=== PATIENT | female | born 1945 | race Caucasian/White ===

== ENCOUNTER 2016-08-17 07:49 | Observation (INO) | payer MEDICARE, BC ==
[2016-08-17] MEDS ORDERED: Aspirin Low Dose CHEW TAB* 81 MG PO ONE (08:16)
[2016-08-17] MEDS ORDERED: Atenolol TAB* 25 MG PO ONE (08:35)
[2016-08-17 08:48] LABS: Hematocrit 42 % (35-47); Hemoglobin 14.4 g/dl (12.0-16.0); Mean Corpuscular HGB Conc 34 g/dl (31-36); Mean Corpuscular Hemoglobin 31 pg (27-31); Mean Corpuscular Volume 89 fL (80-97); Mean Platelet Volume 9 um3 (7.4-10.4); Red Blood Count 4.72 10^6/ul (4.0-5.4); Red Cell Distribution Width 13 % (10.5-15); White Blood Count 6.2 10^3/ul (3.5-10.8)
[2016-08-17 09:02] LABS: ALT 34 U/L (7-52); AST 34 U/L (13-39); Albumin 4.3 g/dL (3.2-5.2); Alkaline Phosphatase 53 U/L (34-104); Anion Gap 8 mmol/L (2-11); BUN/Creatinine Ratio 17.1 (8-20); Blood Urea Nitrogen 14 mg/dL (6-24); CO2 Carbon Dioxide 26 mmol/L (22-32); Calcium 9.4 mg/dL (8.6-10.3); Chloride 96 mmol/L (101-111); EGFR African American 88.1 (>60); EGFR Non-African American 68.5 (>60); Globulin 2.9 g/dL (2-4); Glucose 176 mg/dL (70-100); Sodium 130 mmol/L (133-145); Total Protein 7.2 g/dL (6.4-8.9)
--- NOTE | 2016-08-17 09:05 | RAD ---
INDICATION: Dizziness COMPARISON: October 04, 2014 TECHNIQUE: An AP portable view obtained at 0835 hours is submitted. FINDINGS: Bones/Soft Tissues: There are no acute bony findings. Cardiomediastinal: The cardiomediastinal silhouette is normal. Lungs: There are no infiltrates. Pleura: There are no pleural effusions. Other: None IMPRESSION: NO ACTIVE DISEASE.
[2016-08-17 09:06] LABS: Troponin I 2.42 ng/mL (<0.04)
--- NOTE | 2016-08-17 09:08 | RAD ---
INDICATION: Dizziness COMPARISON: None TECHNIQUE: Noncontrast axial source images were acquired from the skull base to the vertex. FINDINGS: Ventricles/sulci: There is cortical atrophy particularly of the frontal lobes with compensatory dilatation of the CSF spaces. Brain parenchyma: There is no acute focal parenchymal finding, evidence of intracranial mass, or intracranial mass effect. Intracranial hemorrhage:None. Extra-axial spaces: There are no abnormal extra axial fluid collections or evidence of extra-axial mass. Calvarium: There is no calvarial fracture or other calvarial abnormality. Scalp: There is no evidence of scalp or extracalvarial soft tissue abnormality. Paranasal sinuses/mastoid: The paranasal sinuses and mastoid air cells are clear. Other: None. IMPRESSION: Cortical atrophic findings. No acute change
[2016-08-17 09:40] LABS: Alcohol < 10 mg/dL (<10)
[2016-08-17 09:50] LABS: TSH (Thyroid Stimulating Horm) 3.51 mcIU/mL (0.34-5.60)
[2016-08-17 09:57] LABS: Free T4 0.86 ng/dL (0.61-1.12)
[2016-08-17] MEDS ORDERED: Enoxaparin(*) 40 MG/0.4 ML SYR SUBCUT SCH (10:00)
[2016-08-17] MEDS ORDERED: NS 0.9% 1000 ML* 1,000 ML IV SCH (10:00)
[2016-08-17] MEDS ORDERED: Labetalol IV* 5 MG/ML 20 ML VIAL IV PUSH PRN (10:02)
[2016-08-17] MEDS: Enoxaparin(*) 80 MG/0.8 ML SYR SUBCUT SCH (11:27)
--- NOTE | 2016-08-17 11:57 | HP ---
CC: Dr. Melendrez HISTORY AND PHYSICAL: DATE OF ADMISSION: 08/17/16 PRIMARY CARE PHYSICIAN: Anny Melendrez MD CHIEF COMPLAINT: Lightheadedness and palpitations. HISTORY OF PRESENT ILLNESS: Ms. Roy is a pleasant 71-year-old female with the past medical history of hypertension, which is labile and has a white coat component; GERD; spinal cord tumor; melanoma; anxiety; hyperlipidemia; and previous admission for these symptoms with troponin elevation who presents to the hospital with lightheadedness and palpitations. The patient states that she was in her usual state of health, her symptoms began yesterday. When she woke up in the morning, she sat up in bed and she became lightheaded, also noticed that her heart was pounding. She felt some anxiety come on with these symptoms as well. She laid back down and rested for a while, the symptoms resolved. She stated that it felt very similar to her previous episode 2 years ago, which prompted hospitalization. She had no issues for the rest of the day and was able to sleep well last night. This morning, she woke up around 0545 hours. She sat up and got out of the bed and felt well. She went downstairs to the kitchen to get some coffee and after she walked into the kitchen, her symptoms recurred. She felt lightheadedness. Denied sensation of the room spinning around her. She stated that she has had vertigo in her past and did not feel like this. She did not syncopize. She went back to bed and talked to her . He took her blood pressure and it was elevated at 210/110. She felt her anxiety progressing and decided to come to the hospital for further evaluation. She denies chest pain, shortness of breath, diaphoresis, numbness, tingling, or weakness. She states that she took a Valium yesterday and again today. This morning, however, it did not seem to help her symptoms much. She has had some decreased p.o. intake recently. Denies any nausea, vomiting, diarrhea, chills, dysuria, or bleeding. She had a 7-pound weight loss in the past month, which was intentional. She states that she has been [employer]. She states that she does have significant white coat hypertension, was seen in the office by her PCP, Dr. Melendrez, just last week on . She states that her blood pressure at that time was 160/88, which she states is good for her as it can often be over 200. In the emergency department, the patient was noted to have an elevated troponin of 2.42 as well as significant hypertension. The hospitalist service was consulted to consider the patient for admission. PAST MEDICAL HISTORY: 1. Hypertension labile and white coat component. 2. GERD. 3. Spinal cord tumor. 4. Melanoma. 5. Anxiety. 6. Hyperlipidemia. PAST SURGICAL HISTORY: 1. Melanoma excision. 2. 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 HOME MEDICATIONS: 1. Atenolol 25 mg by mouth daily and 12.5 mg by mouth at bedtime. 2. Aspirin 81 mg by mouth daily. 3. Atorvastatin 20 mg daily. 4. Valium 2 to 4 mg by mouth daily as needed for anxiety. 5. Calcium supplementation 1 tablet 2 times daily. ALLERGIES: To EPINEPHRINE, PRILOCAINE, and NOVOCAIN, all of which cause palpitations. FAMILY HISTORY: Significant for the mother who did at 93, had an enlarged heart. Sister with hypertension and polio. Father with lung cancer. Brother with hypertension and brain cancer. Brother with CVA. SOCIAL HISTORY: The patient denies any history of tobacco abuse. She was drinking 2 glasses of wine a night. Denies any illicit drug use. No caffeine use. REVIEW OF SYSTEMS: A 12-point review of systems is negative except as noted in the HPI. PHYSICAL EXAMINATION GENERAL: The patient is a pleasant elderly female, lying in bed, in no apparent distress. Vital Signs: On admission temperature of 98.1, heart rate of 80, respiratory rate 19, O2 saturation 99% on room air, and blood pressure 216/98. HEENT: Pupils equal, round and reactive to light and accommodation. Anicteric sclera. Moist mucous membranes. NECK: No cervical adenopathy. LUNGS: Clear to auscultation bilaterally. No wheezes, rales, or rhonchi. CARDIOVASCULAR: Regular rate and rhythm. S1, S2 present. No murmurs, gallops , or rubs. ABDOMEN: Soft, nontender, and nondistended. Bowel sounds positive. EXTREMITIES: No cyanosis, clubbing, or edema. NEURO: The patient is alert and oriented x3. No focal neurological deficits. SKIN: Warm, dry, and well perfused. DIAGNOSTIC STUDIES/LAB DATA: White blood cell count of 16.2, hematocrit of 42, and platelets of 191. Sodium of 130, potassium of 4.0, chloride of 96, BUN 14, creatinine 0.82, and glucose of 176. LFTs within normal limits. Lactic acid of 1.6. Troponin of 2.42. TSH of 3.51. Serum alcohol is negative. EKG, personally reviewed, shows normal sinus rhythm and no ischemic changes. CT of the head showed no acute disease. Chest x-ray, personally reviewed, also showed no acute disease. ASSESSMENT AND PLAN: Lightheadedness, palpitations with elevated troponin and significant hypertension in this 71-year-old female with history of labile hypertension, gastroesophageal reflux disease, anxiety, and hyperlipidemia. 1. Troponin elevation: The patient is not displaying any chest pain at this time. Blood pressure was significantly elevated; however, on recheck, has now dropped into the 160s to 170s. Her troponin elevation could be driven by her uncontrolled hypertension, which maybe exacerbated by her anxiety. The patient was given a full dose aspirin. We will continue on her home baby aspirin for now. Continue her statin as well as her beta jackie. We will write for a p.r.n. labetalol for uncontrolled hypertension. We will trend the patient's troponins. Monitor on telemetry. We will recheck an EKG later today and tomorrow morning. For now, I will give the patient full dose of Lovenox. Dr. Almaraz is aware of the patient and will see her, not sure if she will need another catheterization as this seems quite similar to her previous catheterization although possibly a stress test 2. Hypertension: Exacerbated by white coat component and anxiety. As noted above, we will continue the patient's home atenolol twice a day for now and write for p.r.n. labetalol. We will also have her Valium available. 3. Hyperlipidemia: Continue home atorvastatin. We will check her lipid panel. 4. DVT prophylaxis: Lovenox subcu. 5. Code status: The patient is a full code. TIME SPENT: Total time spent on this admission 45 minutes with over half the time spent [id number] with the patient, counseling, and coordinating care. [id number]/[facility] #: [id number] BRENDEN
[2016-08-17 12:20] LABS: HDL Cholesterol 51.7 mg/dL
[2016-08-17 12:24] LABS: Troponin I 2.04 ng/mL (<0.04)
[2016-08-17] MEDS: Diazepam TAB(*) 2 MG PO PRN ×2 (13:14→21:53)
--- NOTE | 2016-08-17 15:47 | ECHO ---
Patient: JENNIFER GAGNON [facility] Rec#: [id number] : 1945 Date: 08/17/2016 Age: 71y Height: 162.6 cm / 64.0 in Weight: 71.7 kg / 158.0 lbs Sex: F BSA: 1.8 Room#: 431 Admit Date#: 08/17/2016 Type: Inpatient Referring: Regan Sandoval MD Reading: Zack Almaraz MD Quill Machine Tender: Juanita Ureña RN RDCS CC: Cee Maldonado MD Transthoracic Echocardiogram Indication: HTN, dizziness, abnormal troponin levels BP: 180/81 HR: 65 Rhythm: NSR Findings History: Mild CAD, labile HTN, HLD, PSVT, GERD, spinal cord tumor, anxiety Technical Comments: The study quality is fair. Completed at 1530. Left Ventricle: The left ventricular chamber size is decreased. There is increased basal septal hypertrophy noted without evidence of an increased gradient across the left ventricular outflow tract. There is normal left ventricular systolic function. The estimated ejection fraction is 55-60%. Abnormal left ventricular diastolic filling is observed, consistent with impaired relaxation. The basal inferior wall segment is hypokinetic (score 2). Overall wallmotion score index is 1.50 Left Atrium: The left atrial chamber size is normal. Right Ventricle: The right ventricular chamber size and systolic function are within normal limits. Right Atrium: The right atrial cavity size is normal. Aortic Valve: The aortic valve is trileaflet. The aortic valve leaflets are mildly thickened. There is aortic annular calcification. There is a trace of aortic regurgitation. There is no evidence of aortic stenosis. Mitral Valve: The mitral valve leaflets are mildly thickened. There is trace to mild mitral regurgitation. There is no evidence of mitral stenosis. Tricuspid Valve: The tricuspid valve leaflets are normal. There is trace tricuspid regurgitation. Unable to estimate the right ventricular systolic pressure. Pulmonic Valve: The pulmonic valve appears normal. There is mild to moderate pulmonic regurgitation. There is no pulmonic stenosis. Pericardium: There is no significant pericardial effusion. A pericardial fat pad is visualized. Aorta: There is no dilatation of the ascending aorta. There is no dilatation of the aortic arch. There is no dilation of the aortic root. Pulmonary Artery: The main pulmonary artery appears normal. Venous: The inferior vena cava appears normal in size. There is a greater than 50% respiratory change in the inferior vena cava dimension. Summary: There are no significant changes when compared to the previous study done on 10/06/14 Conclusions There is normal left ventricular systolic function. There is increased basal septal hypertrophy noted without evidence of an increased gradient across the left ventricular outflow tract. The estimated ejection fraction is 55-60%. The basal inferior wall segment is hypokinetic (score 2). The right ventricular chamber size and systolic function are within normal limits. The aortic valve leaflets are mildly thickened. There is a trace of aortic regurgitation. There is trace to mild mitral regurgitation. There is trace tricuspid regurgitation. Unable to estimate the right ventricular systolic pressure. There is no significant pericardial effusion. There are no significant changes when compared to the previous study done on 10/06/14 Measurements Name Value Normal Range RVDdMajor (2D) 3 cm (2.2 - 4.4) RAd ISD 4CH 3.7 cm (3.4 - 4.9) RA (A4C)W 3.4 cm (2.9 - 4.6) IVSd (2D) 1.4 cm (0.6 - 1) LVPWd (2D) 0.9 cm (0.6 - 1) LVIDd (2D) 3.4 cm (3.6 - 5.4) Aortic Annulus 1.8 cm (1.4 - 2.6) Ao root diameter (2D) 3.1 cm (2.1 - 3.5) Ascending Ao 2.9 cm (2.1 - 3.4) Aortic arch 2.6 cm (1.8 - 3.4) LA dimension (AP) 2D 3.6 cm (2.3 - 3.8) LAd ISD 4CH 4.8 cm (2.9 - 5.3) LA ISD 4CH W 4 cm (2.5 - 4.5) Name Value Normal Range LA ESV SP 4CH (A/L) 51 ml - LA ESV SP 2CH (A/L) 35 ml - LA ESV BP (A/L) 44 ml - LA ESV BP (A/L) index 24.7 ml/m2 - LA ESV SP 4CH (MOD) 47 ml - LA ESV SP 2CH (MOD) 34 ml - Name Value Normal Range MV E-wave Vmax 0.45 m/sec - MV deceleration time 382 msec - MV A-wave Vmax 0.82 m/sec - MV E:A ratio 0.5 ratio - LV septal e' Vmax 0.03 m/sec - LV lateral e' Vmax 0.05 m/sec - LV E:e' septal ratio 15 ratio - LV E:e' lateral ratio 9 ratio - Name Value Normal Range AV Vmax 1.3 m/sec - AV VTI 31 cm - AV peak gradient 6.7 mmHg - AV mean gradient 4.6 mmHg - LVOT Vmax 0.94 m/sec - LVOT VTI 24.2 cm - LVOT peak gradient 3.6 mmHg - LVOT mean gradient 2.3 mmHg - BRANDON Vmax 0.57 m/sec - Name Value Normal Range IVC diameter 1.2 cm - Name Value Normal Range PV Vmax 0.92 m/sec - Wallmotion BAS Not Seen BA Not Seen BAL Not Seen PREETHI Not Seen BI Hypokinetic BIS Not Seen MAS Not Seen MA Not Seen MAL Not Seen MIL Not Seen GA Normal MIS Not Seen Not Seen AA Not Seen AL Not Seen AI Not Seen APEX Not Seen
--- NOTE | 2016-08-17 17:15 | CONS ---
INTERVENTIONAL CARDIOLOGY CONSULT NOTE: DATE OF CONSULT: 08/17/16 PRIMARY CARE PHYSICIAN: Dr. Anny Melendrez. MIS SPECIALIST: Dr. Maldonado. HISTORY OF PRESENT ILLNESS: A 71-year-old woman known to me from evaluation 2 years ago, admitted w ith palpitations and abnormal troponin. On 10/05/14, she had a catheterization for a very similar presentation, although it was much more se kevin. At that time, she had very rapid heart beating accompanied by dizziness, subsequently had tro ponin elevation to a peak of 1.[address] segments. She underwent a radial cat h, which revealed no significant obstructive coronary disease with scattered nonobstructive plaque, and inferobasilar hypokinesis, more evident on echo, with preserved LVEF. She was presumed to have nonischemic troponin elevation from palpitations and uncontrolled hypertension, which has been labil e and a problem since her 20s. She has white coat hypertension, was intolerant of Norvasc with tian pheral edema. She has done well for 2 years on atenolol 25 mg daily with rarely taking the evening 12.5 mg until yesterday when she had another episode of palpitations with very rapid heart beating, she cannot tell if it was regular or irregular. With it, she felt lightheaded without vertigo, it l asted about 3 minutes and resolved spontaneously. This morning after bending over, she had an episod e of dizziness without palpitations. She presented in the ER where BP was 216/98. She was in dona l rhythm. When her troponin came back at 2.42, she was admitted. She is active, she golfs, she makes an effort to walk 5000 steps daily. She has not noticed any exe rcise intolerance, has not had dyspnea, has not had syncope. PAST MEDICAL HISTORY: 1. Hypertension with white coat component. 2. Anxiety. PRE-HOSPITAL MEDICATIONS: 1. Atenolol 25 mg daily. 2. Aspirin 81 mg daily. 3. Lipitor 20 daily at bedtime. 4. Os-Johann. 5. Valium infrequently used p.r.n. anxiety. FAMILY HISTORY: Negative for premature coronary disease. SOCIAL HISTORY: She is . Nonsmoker. REVIEW OF SYSTEMS: General: No weight loss. No fever. No change in exercise tolerance. Pulmonar y: No cough. No hemoptysis. 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 GI: No peptic ulcer disease or bleed ing. Remainder all negative. PHYSICAL EXAM: She is comfortable, articulate. Her last BP 180/81. Heart rate in the 60s, sinus r hythm. Her lungs are clear to percussion and auscultation. JVP and carotids are normal. No bruits . HEENT: Unremarkable. Cardiac Exam: Normal without gallop, murmur, or rub. Abdomen: Soft, non tender, no bruit, radial, femoral, and pedal pulses are palpable. She has no cyanosis, clubbing, or edema. Skin: Warm and perfused. DIAGNOSTIC STUDIES/LABORATORY DATA: Lab troponins 2.42, 2.04. CBC is unremarkable. BMP likewise. LDL was 59. EKG at 8 o'clock this morning shows minor J-point ST depression in the lateral precord ial leads as well as I and aVL similar to what she had on 10/05/14. IMPRESSION: Abnormal troponin. This occurred again in the setting of hypertension and rapid palpit ations of short duration. This episode was milder than the previous one. Previous cath showed nono bstructive coronary plaquing. This is almost certainly nonischemic troponin elevation due to combin ation of the uncontrolled hypertension as well as the tachycardia. I think it is reasonable to doub le her atenolol to 25 b.i.d. Depending on her blood pressure response, she may need an additional a ntihypertensive. She was intolerant of Norvasc in the past. I have ordered an echo to reevaluate h er inferobasilar wall motion and rule out a new wall motion abnormality. I do not think she needs s tress imaging or other invasive evaluation. I do not have a clear idea of the degree of blood press ure control that she has as an outpatient as there is such a labile component, which seems to be anx iety driven. I will follow with you as needed. Thanks for the consultation. [id number]/[facility] #: [id number]
[2016-08-17] MEDS ORDERED: Atorvastatin* 20 MG TAB PO SCH (21:00)
[2016-08-17] MEDS ORDERED: Atenolol TAB* 25 MG PO SCH (21:00)
[2016-08-17] MEDS: Atenolol TAB* 25 MG PO SCH (21:53)
[2016-08-17] MEDS: Calcium/Vitamin D TAB 250/125* TAB PO SCH (21:53)
--- NOTE | 2016-08-18 07:40 | DCNOTE ---
Patient seen this morning. Feels feel. Thinks she may have had a very brief sensation of palpitations yesterday afternoon but nothing since. No dizziness, no chest pain. Good PO intake. On exam, RRR, s1 and s2 present, no m/g/r, abd soft, NTND, BS+, lungs CTA B/L, no w/r/r, no LE edema Appreciate Cardiology assistance, no need for further testing at this time. Echo is unchanged. Will continue increased Atenolol dose of 25 mg BID at home. F /U with PCP regarding BPs and need for additional titration.
[2016-08-18] MEDS: Atenolol TAB* 25 MG PO SCH (07:45)
[2016-08-18] MEDS: Calcium/Vitamin D TAB 250/125* TAB PO SCH (07:45)
[2016-08-18 07:51] VITALS: BP 150/63
[2016-08-18] MEDS: Enoxaparin(*) 80 MG/0.8 ML SYR SUBCUT SCH (08:31)
--- NOTE | 2016-08-18 08:46 | DS ---
DISCHARGE SUMMARY: DATE OF ADMISSION: 08/17/16 DATE OF DISCHARGE: 08/18/16 PRIMARY CARE PHYSICIAN: Dr. Anny Melendrez. PRINCIPAL DISCHARGE DIAGNOSES: 1. Accelerated hypertension, white coat hypertension. 2. Anxiety. 3. Troponin elevation. SECONDARY DIAGNOSES: 1. GERD. 2. Hyperlipidemia. CONSULTATIONS DURING HOSPITALIZATION: Dr. Regan Sandoval, Cardiology. DISCHARGE MEDICATION REGIMEN: 1. Atenolol 25 mg by mouth 2 times daily. 2. Aspirin 81 mg by mouth daily. 3. Atorvastatin 20 mg by mouth at bedtime. 4. Calcium carbonate 1 tablet by mouth 2 times daily. 5. Valium 2 to 4 mg by mouth daily as needed for anxiety. STUDIES DONE DURING HOSPITALIZATION: CT of the brain, impression: Cortical atrophic findings. No acute change. Chest x-ray, impression: No active disease. Transthoracic echocardiogram completed. There is normal left ventricular systolic function is increased basal septal hypertrophy noted without evidence of an increased gradient across the left ventricular outflow tract. Estimated ejection fraction is 55% to 60%. The basal inferior wall segment is hypokinetic. The right ventricular chamber size and systolic function within normal limits. Aortic valve leaflets are mildly thickened. There is trace aortic regurgitation, trace to mild mitral regurgitation, trace tricuspid regurgitation. Unable to estimate the right ventricular systolic pressure, no significant pericardial effusion. No significant changes when compared to previous study of 10/06/14. HISTORY OF PRESENT ILLNESS AND HOSPITAL SUMMARY: Please see my full history and physical for details. Briefly, Ms. Roy is a 71-year-old female with past medical history as above who presented in the hospital with palpitations and lightheadedness, was found to have extremely elevated blood pressures along with a troponin elevation. This was very similar to previous admission she had 2 years ago. Where she underwent cardiac catheterization that showed no significant obstructions. Blood pressures improved throughout the hospitalization with increase of her atenolol 25 mg by mouth 2 times daily. Cardiology was consulted. Dr. Sandoval evaluated the patient and aside from echocardiogram which was unchanged he did not feel that any additional stress imaging or invasive evaluation was needed at this time and just felt that focusing on blood pressure control was probably the best for the patient. She will be discharged home on atenolol 25 mg by mouth 2 times daily. She did not want a new prescription for this as she has lot of medication at home. She will need to follow up with her PCP regarding any further titration that is necessary. TIME SPENT: Total time spent on this discharge 35 minutes. This is a summary of the hospitalization, please see the full medical record for further details. CC: Dr. Anny Melendrez [id number]/[facility] #: [id number] MTDD
[2016-08-18] MEDS ORDERED: Atenolol TAB* 25 MG PO SCH (09:00)
[2016-08-18] MEDS ORDERED: Aspirin EC Low Dose* 81 MG TAB.EC PO SCH (09:00)
[2016-08-18 14:44] LABS: Urine Tetrahydrocannabinol Negative ng/mL (Cutoff: 50)
--- NOTE | 2016-08-20 07:28 | ED ---
enrike Calles Timothy, scribed for Kevin Hernandez MD on 08/17/16 at 0812 . Palpitations / Dysrhythmia - HPI Summary HPI Summary: Donna Roy is a 71 yo female presenting to [facility] with palpitations with punding and lightheadedness since 08/16/16 evening. Prsent in room is her . She states she had took 4 mg Valium this morning to lower her BP, as she believed it was high, but is still dizzy and anxious. She states that when she stood up last night she felt lightheaded and like she was about to faint. She states she is not lightheaded when she is lying down. She states she may have had a panic attack. She states her Sx are not like vertigo, and are more like lightheadedness. She states she is anxious and always has high BP in doctors' offices. She states she was here 2 years ago for similar Sx. She denies any current CP. Per triage, her heart rate is 80 BPM, and her BP is 216/ 98. She states she has had some abdominal cramping recently. She is not in any current pain, and denies nausea, vomiting, cough, or any other Sx. She took all of her prescribed medications this morning at 0615. Her MHx includes HTN, melanoma in situ 1985. - History of Current Complaint Hx Obtained From: Patient Onset/Duration: Gradual Onset, Lasting Hours, Still Present Timing: Constant Severity Initially: Moderate Severity Currently: Moderate Character: Pounding Aggravating: Position - position change Associated Signs & Symptoms: Lightheadedness - Allergy/Home Medications Allergies/Adverse Reactions: Allergies Allergy/AdvReac Type Severity Reaction Status Date / Time Epinephrine Allergy Palpitation Verified 10/06/14 13:07 s Prilocaine Allergy Palpitation Verified 10/06/14 13:07 s NOVOCAIN WITH EPI AdvReac Severe Palpitation Uncoded 10/04/14 18:28 s PMH/Surg Hx/FS Hx/Imm Hx Endocrine/Hematology History: Denies: Hx Diabetes, Hx Thyroid Disease Cardiovascular History: Reports: Hx Hypertension Respiratory History: Denies: Hx Asthma, Hx Chronic Obstructive Pulmonary Disease (COPD) GI History: Denies: Hx Ulcer Musculoskeletal History: Denies: Hx Rheumatoid Arthritis, Hx Osteoporosis Sensory History: Reports: Hx Contacts or Glasses Opthamlomology History: Reports: Hx Contacts or Glasses - Cancer History Cancer Type, Location and Year: 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 Hx Chemotherapy: No Hx Radiation Therapy: No - Surgical History Surgery Procedure, Year, and Place: 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 Negative: Chest Pain Respiratory: Negative Negative: Shortness Of Breath, Cough Positive: Abdominal Pain - cramping. Negative: Vomiting, Nausea Genitourinary: Negative Negative: dysuria, hematuria Musculoskeletal: Negative Negative: Edema - legs Skin: Negative Negative: Rash Neurological: Other - dizziness Psychological: Normal All Other Systems Reviewed And Are Negative: Yes Physical Exam - Summary Physical Exam Summary: Constitutional: Well-developed, Well-nourished, Alert. (-) Distressed Skin: Warm, Dry HENT: Eyes: Conjunctiva normal Neck: Musculoskeletal ROM normal neck. (-) JVD, (-) Stridor, (-) Tracheal deviation Cardio: Rhythm regular, rate normal, Heart sounds normal; Intact distal pulses; The pedal pulses are 2+ and symmetric. Radial pulses are 2+ and symmetric. (-) Murmur Pulmonary/Chest wall: Effort normal. (-) Respiratory distress, (-) Wheezes, (-) Rales Abd: Soft. (-) Tenderness, (-) Distension, (-) Guarding, (-) Rebound Musculoskeletal: (-) Edema Lymph: (-) Cervical adenopathy Neuro: Alert, Oriented x3, Strength normal, Cranial nerves II-XII are grossly intact. (-) Dysmetria, (-) Nystagmus, (-) Ataxia by finger to nose testing, (-) Sensory deficit. Psych: Mood and affect Normal Triage Information Reviewed: Yes Vital Signs On Initial Exam: Initial Vitals Temp Pulse Resp BP Pulse Ox 98.1 F 80 19 216/98 99 08/17/16 07:53 08/17/16 07:53 08/17/16 07:53 08/17/16 07:53 08/17/16 07:53 Vital Signs Reviewed: Yes Diagnostics - Vital Signs Vital Signs Temp Pulse Resp BP Pulse Ox 08/17/16 07:53 98.1 F 80 19 216/98 99 - Laboratory Result Diagrams: 08/17/16 08:30 08/17/16 08:30 Lab Statement: Any lab studies that have been ordered have been reviewed, and results considered in the medical decision making process. - Radiology CXR Xray Interpretation: No Acute Changes - IMPRESSION: NO ACTIVE DISEASE. Radiology Interpretation Completed By: Radiologist - CT Brain CT Interpretation: No Acute Changes - IMPRESSION: Cortical atrophic findings. No acute change CT Interpretation Completed By: Radiologist - EKG 0800 Cardiac Rate: NL - 78 BPM EKG Interpretation: NSR @ 78 BPM, no STEMI Course/Dx - Course Assessment/Plan: Donna Roy is a 71 yo female presenting to [facility] hypertensive with palpitations and dizziness since 08/16/16 evening. Per triage, her BP is 216/98. In the ED she received ASA and atenolol. Her CXR suggests no active disease. Her CT brain suggests cortical atrophic findings with no acute change. Of note is her troponin of 2.42. After clinical examination and review of her lab and imaging studies, as well as conversation with Dr. Palm and Dr. Almaraz, she will be admitted to [facility] with hypertensive urgency and NSTEMI. - Diagnoses Differential Diagnosis/HQI/PQRI: Positive: Other - STEMI, NSTEMI, hypertension Provider Diagnoses: Hypertensive urgency, NSTEMI (non-ST elevated myocardial infarction) - Physician Notifications Discussed Care Of Patient With: 0920 - Dr. Palm (hospitalist) - discussed Pt condition, agrees to admit Pt, recommends consult with cardiology. 0940 - Dr. Almaraz (cardiology) - discussed Pt condition, is aware of Pt admission. Discharge - Discharge Plan Condition: Stable Disposition: ADMITTED TO [facility] Discharge Disposition Comment: evaluation and treatment of hypertensive urgency and NSTEMI Referrals: Zack Riggins MD [Primary Care Provider] - The documentation as recorded by the enrike oden Timothy accurately reflects the service I personally performed and the decisions made by , Kevin Hernandez MD.
== END 2016-08-18 08:46 | disposition home or self-care (01) ==
LOC: ED 07:49 → INTOOBSV 09:28 → MEDTELE 09:28
PROVIDERS: ADMIT Hospitalist; ATTEND Hospitalist
DX: I10 Essential (primary) hypertension (principal); F41.9 Anxiety disorder, unspecified; R74.8 Abnormal levels of other serum enzymes; K21.9 Gastro-esophageal reflux disease without esophagitis; E78.5 Hyperlipidemia, unspecified; I51.7 Cardiomegaly; Z79.82 Long term (current) use of aspirin; Z79.899 Other long term (current) drug therapy; Z88.8 Allergy status to other drugs, medicaments and biological substances; Z85.820 Personal history of malignant melanoma of skin
CPT/HCPCS: 36415; 70450; 71010; 80053; 80061; 80307; 80320; 83605; 84439; 84443; 84484; 85025; 93005; 93306; 96372; 99284; A9270-GY; G0378; G0480; J1650

== ENCOUNTER 2017-03-15 17:17 | Emergency (ER) | payer MEDICARE, BC ==
[2017-03-15 20:08] LABS: Hematocrit 39 % (35-47); Hemoglobin 12.5 g/dl (12.0-16.0); Mean Corpuscular HGB Conc 32 g/dl (31-36); Mean Corpuscular Hemoglobin 25 pg (27-31); Mean Corpuscular Volume 78 fL (80-97); Mean Platelet Volume 9 um3 (7.4-10.4); Red Blood Count 4.95 10^6/ul (4.0-5.4); Red Cell Distribution Width 18 % (10.5-15); White Blood Count 14.7 10^3/ul (3.5-10.8)
[2017-03-15 20:18] LABS: Albumin 3.3 g/dL (3.2-5.2); BUN/Creatinine Ratio 18.6 (8-20); C Reactive Protein 176.95 mg/L (< 5.00); Calcium 8.8 mg/dL (8.6-10.3); EGFR African American 83.2 (>60); EGFR Non-African American 64.7 (>60); Globulin 2.6 g/dL (2-4); Potassium 3.9 mmol/L (3.5-5.0); Total Bilirubin 1.1 mg/dL (0.2-1.0); Total Protein 5.9 g/dL (6.4-8.9)
[2017-03-15] MEDS ORDERED: Piperacillin/Tazobac ADVAN(*) 3.375 GM in NS 0.9% 100 ML* 100 ML IVPB ONE (20:40)
[2017-03-15] MEDS ORDERED: NS 0.9% 1000 ML* 2,500 ML IV ONE (20:52)
[2017-03-15] MEDS ORDERED: Iohexol 350* (CONTRAST) 500 ML MDV IV ONE (21:20)
[2017-03-15] MEDS ORDERED: Morphine INJ* 4 MG/ML 1 ML CARPUJECT IV ONE (21:27)
[2017-03-15] MEDS ORDERED: Ondansetron INJ* 2 MG/ML VIAL IV ONE (21:27)
--- NOTE | 2017-03-15 22:16 | RAD ---
INDICATION: Hypoxemia, fever, ascites. COMPARISON: Comparison is made with a prior CT of the abdomen and pelvis from February 14, [address] of the chest from February 16, 2017. TECHNIQUE: A CT angiogram of the chest and a CT of the abdomen and pelvis was performed with intravenous contrast following intravenous injection of 100 ml of Omnipaque 350 nonionic contrast. Contiguous axial sections were obtained from the lung apices through the symphysis pubis. Images were reconstructed in the coronal and sagittal planes. FINDINGS: CT ANGIOGRAM OF THE CHEST: There is suboptimal opacification of the pulmonary arteries slightly limiting the study. No intraluminal filling defect or pulmonary embolism is seen. The heart is within normal limits in size. No pericardial effusion is present. The thoracic aorta is normal in caliber and demonstrates homogeneous contrast opacification without evidence for dissection. No significant enlarged mediastinal or hilar lymph nodes are seen. There is a small a moderate size right pleural effusion and a trace left pleural effusion. The right pleural effusion has increased slightly in size. There are small dependent bilateral lower lobe infiltrates most consistent with atelectasis. CT OF THE ABDOMEN AND PELVIS: The liver is mildly enlarged. There is a small hypodense 0.4 cm lesion in the posterior segment of the right hepatic lobe which is unchanged possibly representing a cyst. No other focal hepatic abnormality is seen. No calcified gallstones are noted. The pancreas appears to be within normal limits. The adrenal glands appear to be within normal limits. The kidneys are normal in size. There is a soft tissue and fatty mass arising from the mid to inferior aspect of the left kidney measuring 2.2 x 2.1 cm in size which is unchanged from the prior study no hydronephrosis is present. The abdominal aorta is normal in caliber. There is mild calcific plaque present. No significant enlarged retroperitoneal lymph nodes are seen. The stomach, small and large bowel appear nondistended. There is mild thickening of the wall of the small bowel. There is a small amount of ascites present throughout the abdomen and pelvis and a small amount of free intraperitoneal air. There is stranding in the mesenteric fat. There is air present within the subcutaneous tissues in the periumbilical region and stranding in the subcutaneous fat in the anterior abdominal wall. The patient had an abdominal laparoscopy one day ago which would account for these findings. The uterus is anteverted and normal in size. No significant focal osseous abnormality is seen. The results of this exam were discussed with the referring clinician. IMPRESSION: 1. SLIGHTLY LIMITED STUDY, NO EVIDENCE FOR PULMONARY EMBOLISM. 2. SMALL TO MODERATE-SIZED RIGHT PLEURAL EFFUSION AND TRACE LEFT PLEURAL EFFUSION. THE RIGHT PLEURAL EFFUSION HAS INCREASED SLIGHTLY IN SIZE. NUMBER 3 DEPENDENT BILATERAL LOWER LOBE INFILTRATES MOST CONSISTENT WITH ATELECTASIS. 4. SMALL AMOUNT OF ASCITES. 5. SMALL AMOUNT OF FREE INTRAPERITONEAL AIR, STRANDING WITHIN THE MESENTERIC FAT, AIR AND EDEMA IN THE ANTERIOR ABDOMINAL WALL CONSISTENT WITH THE PATIENT'S RECENT SURGERY. 6. 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 RECOMMEND A FOLLOW-UP CT OF THE ABDOMEN WITH CONTRAST IN 6 MONTHS TIME TO DEMONSTRATE STABILITY.
[2017-03-15] MEDS ORDERED: Lidocaine 2% VISCOUS* 15 ML UDC PO ONE (22:19)
[2017-03-15] MEDS ORDERED: Al Hydrox/Mg Hydrox/Simet LIQ* 30 ML UDC PO ONE (22:19)
[2017-03-15 23:17] LABS: Urine Bacteria Absent (Absent); Urine Bilirubin Negative (Negative); Urine Glucose Negative (Negative); Urine Nitrite Negative (Negative)
--- NOTE | 2017-03-15 23:27 | ED ---
Ronald Calles Nilda, scribed for Kevin Hernandez MD on 03/15/17 at 2114 . Abdominal Pain/Female - HPI Summary HPI Summary: This patient is a 72 year old F presenting to [facility] accompanied by with a chief complaint of constant abd pain since her laparoscopy surgery yesterday at [facility]. Pt has cancer and had several biopsies, per . They also removed 2 L fluid from her abd yesterday. 1.3 L was removed 2 weeks ago. The patient rates the pain 6/10 in severity. Symptoms aggravated and alleviated by nothing. 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 Patient reports weakness, fatigue, fever (102 F), mild hematuria secondary to biopsy, mild cough, loss of appetite , and increased thirst. Patient denies lightheadedness, dizziness, vomiting, SOB , nasal discharge, body aches, CP, and tightness or heaviness of chest. Medications include baby aspirin. No PMHx COPD, PNA, or asthma. Pt states she will begin chemotherapy on 03/18/17. - History of Current Complaint Chief Complaint: EDAbdPain Stated Complaint: FEVER/ABD PAIN Time Seen by Provider: 03/15/17 20:52 Hx Obtained From: Patient, Family/Visiting Nurse - Onset/Duration: Sudden Onset, Lasting Hours, Still Present Timing: Constant Severity Currently: Moderate Pain Intensity: 6 Pain Scale Used: 0-10 Numeric Location: Other - at surgical sites Radiates: No Aggravating Factor(s): Nothing Alleviating Factor(s): Nothing Associated Signs and Symptoms: Positive: Other: - reports weakness, fatigue, fever (102 F), mild hematuria secondary to biopsy, mild cough, loss of appetite , and increased thirst. Patient denies lightheadedness, dizziness, vomiting, SOB , nasal discharge, body aches, CP, and tightness or heaviness of chest. Allergies/Adverse Reactions: Allergies Allergy/AdvReac Type Severity Reaction Status Date / Time Epinephrine Allergy Palpitation Verified 03/15/17 17:25 s Prilocaine Allergy Palpitation Verified 03/15/17 17:25 s NOVOCAIN WITH EPI AdvReac Severe Palpitation Uncoded 03/15/17 17:25 s PMH/Surg Hx/FS Hx/Imm Hx Endocrine/Hematology History: Denies: Hx Diabetes, Hx Thyroid Disease Cardiovascular History: Reports: Hx Coronary Artery Disease, Hx Hypercholesterolemia, Hx Hypertension, Other Cardiovascular Problems/Disorders - cardiac cath. 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 Negative: Chills Negative: Erythema Negative: Sore Throat, Nasal Discharge Positive: Other - negative tightness or heaviness of chest. Negative: Chest Pain Positive: Cough. Negative: Shortness Of Breath Positive: Abdominal Pain, Other - loss of appetite, increased thirst. Negative : Vomiting, Nausea Positive: hematuria - mild, secondary to biopsy. Negative: dysuria Positive: Other - negative body aches. Negative: Myalgia, Edema Negative: Rash Neurological: Other - negative dizziness, lightheadedness Positive: Weakness All Other Systems Reviewed And Are Negative: Yes Physical Exam - Summary Physical Exam Summary: Constitutional: Well-developed, Well-nourished, Alert. ill appearing Skin: Warm, Dry HENT: Normocephalic; Atraumatic Eyes: Conjunctiva normal Neck: Musculoskeletal ROM normal neck. (-) JVD, (-) Stridor, (-) Tracheal deviation Cardio: Rhythm regular, rate normal, Heart sounds normal; Intact distal pulses; The pedal pulses are 2+ and symmetric. Radial pulses are 2+ and symmetric. (-) Murmur Pulmonary/Chest wall: Effort normal. (-) Respiratory distress, (-) Wheezes, (-) Rales Abd: Soft, Tenderness at laparoscopy incision sites, (-) Guarding, (-) Rebound, well approximated laparoscopy incisions, ascites Musculoskeletal: (-) Edema Lymph: (-) Cervical adenopathy Neuro: Alert, Oriented x3 Psych: Mood and affect Normal Triage Information Reviewed: Yes Vital Signs On Initial Exam: Initial Vitals Temp Pulse Resp BP Pulse Ox 98.4 F 103 16 156/52 97 03/15/17 17:25 03/15/17 17:25 03/15/17 17:25 03/15/17 17:25 03/15/17 17:25 Vital Signs Reviewed: Yes Diagnostics - Vital Signs Vital Signs Temp Pulse Resp BP Pulse Ox 03/15/17 17:25 98.4 F 103 16 156/52 97 - Laboratory Lab Results: Lab Results 03/15/17 03/15/17 Range/Units 19:49 19:49 WBC 14.7 H (3.5-10.8) 10^3/ul RBC 4.95 (4.0-5.4) 10^6/ul Hgb 12.5 (12.0-16.0) g/dl Hct 39 (35-47) % MCV 78 L (80-97) fL MCH 25 L (27-31) pg MCHC 32 (31-36) g/dl RDW 18 H (10.5-15) % Plt Count 251 (150-450) 10^3/ul MPV 9 (7.4-10.4) um3 Neut % (Auto) 85.6 H (38-83) % Lymph % (Auto) 6.3 L (25-47) % [place] % (Auto) 7.7 (1-9) % Eos % (Auto) 0.1 (0-6) % Baso % (Auto) 0.3 (0-2) % Absolute Neuts (auto) 12.6 H (1.5-7.7) 10^3/ul Absolute Lymphs (auto) 0.9 L (1.0-4.8) 10^3/ul Absolute Monos (auto) 1.1 H (0-0.8) 10^3/ul Absolute Eos (auto) 0 (0-0.6) 10^3/ul Absolute Basos (auto) 0 (0-0.2) 10^3/ul Absolute Nucleated RBC 0 10^3/ul Nucleated RBC % 0 Sodium 133 (133-145) mmol/L Potassium 3.9 (3.5-5.0) mmol/L Chloride 100 L (101-111) mmol/L Carbon Dioxide 27 (22-32) mmol/L Anion Gap 6 (2-11) mmol/L BUN 16 (6-24) mg/dL Creatinine 0.86 (0.51-0.95) mg/dL Est GFR ( Amer) 83.2 (>60) Est GFR (Non-Af Amer) 64.7 (>60) BUN/Creatinine Ratio 18.6 (8-20) Glucose 132 H (70-100) mg/dL Calcium 8.8 (8.6-10.3) mg/dL Total Bilirubin 1.10 H (0.2-1.0) mg/dL AST 13 (13-39) U/L ALT 13 (7-52) U/L Alkaline Phosphatase 43 (34-104) U/L C-Reactive Protein 176.95 H (< 5.00) mg/L Total Protein 5.9 L (6.4-8.9) g/dL Albumin 3.3 (3.2-5.2) g/dL Globulin 2.6 (2-4) g/dL Albumin/Globulin Ratio 1.3 (1-3) Lipase 24 (11.0-82.0) U/L Result Diagrams: 03/15/17 19:49 03/15/17 19:49 Lab Statement: Any lab studies that have been ordered have been reviewed, and results considered in the medical decision making process. - CT CTA Chest/Abd/Pel CT Interpretation Completed By: Radiologist - CTA Chest/Abd/Pel, per radiologist , reveals: 1. SLIGHTLY LIMITED STUDY, NO EVIDENCE FOR PULMONARY EMBOLISM. 2. SMALL TO MODERATE-SIZED RIGHT PLEURAL EFFUSION AND TRACE LEFT PLEURAL EFFUSION. THE RIGHT PLEURAL EFFUSION HAS INCREASED SLIGHTLY IN SIZE. 3. DEPENDENT BILATERAL LOWER LOBE INFILTRATES MOST CONSISTENT WITH ATELECTASIS. 4. SMALL AMOUNT OF ASCITES. 5. SMALL AMOUNT OF FREE INTRAPERITONEAL AIR, STRANDING WITHIN THE MESENTERIC FAT, AIR AND EDEMA IN THE ANTERIOR ABDOMINAL WALL CONSISTENT WITH THE PATIENT'S RECENT SURGERY. 6. 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 RECOMMEND A FOLLOW-UP CT OF THE ABDOMEN WITH CONTRAST IN 6 MONTHS TIME TO DEMONSTRATE STABILITY. Dr. Hernandez has reviewed this radiology report. Re-Evaluation - Re-Evaluation First Eval Re-Evaluation Time: 22:13 Comment: Updated pt on lab results. Abdominal Pain Fem Course/Dx - Course Course Of Treatment: This patient is a 72 year old F presenting to [facility] accompanied by with a chief complaint of constant abd pain since her laparoscopy surgery yesterday at [facility]. Pt has cancer and had several biopsies, per . They also removed 2 L fluid from her abd yesterday. 1.3 L was removed 2 weeks ago. The patient rates the pain 6/10 in severity. Symptoms aggravated and alleviated by nothing. 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 Patient reports weakness, fatigue, fever (102 F), mild hematuria secondary to biopsy, mild cough, loss of appetite, and increased thirst. Patient denies lightheadedness, dizziness, vomiting, SOB, nasal discharge, body aches, CP, and tightness or heaviness of chest. Medications include baby aspirin. No PMHx COPD , PNA, or asthma. Pt states she will begin chemotherapy on 03/18/17. CTA Chest/ Abd/Pel, per radiologist, reveals: 1. SLIGHTLY LIMITED STUDY, NO EVIDENCE FOR PULMONARY EMBOLISM. 2. SMALL TO MODERATE-SIZED RIGHT PLEURAL EFFUSION AND TRACE LEFT PLEURAL EFFUSION. THE RIGHT PLEURAL EFFUSION HAS INCREASED SLIGHTLY IN SIZE. 3. DEPENDENT BILATERAL LOWER LOBE INFILTRATES MOST CONSISTENT WITH ATELECTASIS. 4. SMALL AMOUNT OF ASCITES. 5. SMALL AMOUNT OF FREE INTRAPERITONEAL AIR, STRANDING WITHIN THE MESENTERIC FAT, AIR AND EDEMA IN THE ANTERIOR ABDOMINAL WALL CONSISTENT WITH THE PATIENT'S RECENT SURGERY. 6. 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 RECOMMEND A FOLLOW-UP CT OF THE ABDOMEN WITH CONTRAST IN 6 MONTHS TIME TO DEMONSTRATE STABILITY. Dr. Hernandez has reviewed this radiology report. In the ED course, the patient was given morphine, Zofran, Zosyn, and IV fluids. Given the reading of significant pleural effusion we will discontinue IV fluid. [id number] Imani ARCE from [facility]) accept pt for transfer to [facility] on behalf of Dr. Lucas. Dr. Hernandez assured them of stable vitals as well as shared concern for possible peritonitis. O2 requirement 2 L at time of transfer. Pt is stable and will be transferred to [facility] with Dx of peritonitis, hypoxemis , and pleural effusion. 90 mins CCT. The peritonitis could represent a post operative complication, operative specialty hospital transfer warranted. - Diagnoses Provider Diagnoses: Peritonitis, Hypoxemia, Pleural effusion - Critical Care Time Critical Care Time: 75-104 min - 90 mins Discharge - Discharge Plan Condition: Stable Disposition: TRANS HIGHER LVL OF CARE FAC Discharge Disposition Comment: Transfer to [facility]. Referrals: Anny Melendrez MD [Primary Care Provider] - The documentation as recorded by the Ronald oden Nilda accurately reflects the service I personally performed and the decisions made by David zarate Jerry, MD.
[2017-03-16 01:01] VITALS: BP 103/50
== END 2017-03-16 00:40 | disposition short-term general hospital (02) ==
LOC: ED 17:17
DX: K65.9 Peritonitis, unspecified (principal); R09.02 Hypoxemia; J90 Pleural effusion, not elsewhere classified; R10.9 Unspecified abdominal pain; R63.0 Anorexia
CPT/HCPCS: 36415; 71275; 74177; 80053; 81003; 81015; 83605; 83690; 85025; 86140; 87040; 87086; 96365; 96375; 99285; A9270-GY; J2270; J2405; J2543; Q9967

== ENCOUNTER 2017-03-25 13:32 | Inpatient (IN) | payer MEDICARE, BC ==
[2017-03-25] MEDS ORDERED: Vancomycin(*) 1,000 MG in NS 0.9% 250 ML* 250 ML IVPB ONE (14:39)
[2017-03-25] MEDS ORDERED: Vancomycin per Pharmacy* NOTE FOLLOW UP SCH (15:00)
--- OUTSIDE RECORDS SUMMARY | 2017-03-25 15:02 | XMS REPORT ---
:1945 External Reference #:[id number] Author Organization [facility] Address [address] [address] Phone [phone] Care Team Providers Name Role Phone Anny Melendrez MD Primary Care Physician Unavailable Payers Type Date Identification Numbers Payment Provider Subscriber Medicare Primary Effective: Policy Number: Medicare Donna Roy 2014 [id number] PayID: [id number] [address] [place] [address] Medigap Part B Effective: 2014 Policy Number: Elijah Roy [id number] PayID: [id number] [address] [address] [place] [address] Medigap Part B Effective: 2014 Policy Number: BS Of TWILA Roy [id number] Expires: 2014 PayID: [id number] [address] [address] [place] [address] Problems Date Description Provider Status Onset: 10/24/2014 Palpitations Regan Sandoval MD, Active [facility], [facility] Onset: 12/31/2014 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 Active Onset: 12/31/2014 Mixed hyperlipidemia Cee Maldonado M.D. Active Onset: 12/31/2014 Paroxysmal supraventricular Cee Maldonado M.D. Active tachycardia Social History Type Date Description Comments Cigarette Use Never Smoked Cigarettes Smoking Patient has never smoked Daily Caffeine Comsumes on average 1 cup of decaff coffee per day Daily Caffeine Diet Coke once a week or less Exercise Type/Frequency Exercises regularly 10,000 steps/daily walking Allergies, Adverse Reactions, Alerts Date Description Reaction Status Severity Comments 10/24/2014 NKDA active Medications Medication Date Status Form Strength Qnty SIG Indications Ordering Provider Atorvastatin Active Tablets 20mg take 1 Vaishnavi Calcium 015 tablet at MD Zack bedtime Citracal Plus Active Tablets 1 tablet Unknown Vitamin D 000 po twice daily Am/PM [place] Low Dose Active Chewtabs 81mg 1 chew Unknown 000 tablet po daily Am Diazepam Active Tablets 2mg take 1 Unknown 000 tablet by mouth every 6 hours if needed for anxiety Atenolol Active Tablets 25mg 1 tablet Unknown 000 q am, 1/2 po q pm Aleve Active 220mg as needed Unknown [address] Adult Active Table[address] 81mg 1 by Unknown Low Dose 000 mouth every day Losartan Active Tablets 25mg 1 by Unknown Potassium 000 mouth every day Amlodipine Hx Tablets 5mg 1 by Vaishnavi Besylate 015 - mouth MD Zack every day 017 Vital Signs Date Vital Result Comment 03/10/2017 Height 64 inches 5'4" Weight 155.12 lb w/shoes Heart Rate 82 /min BP Systolic 180 mmHg LA reg cuff BP Diastolic 88 mmHg LA reg cuff BMI (Body Mass Index) 26.6 kg/m2 Ejection Fraction 55-60% Echo 08/17/16 12/31/2014 Height 64 inches 5'4" Weight 156.00 lb no shoes Heart Rate 84 /min BP Systolic Sitting 172 mmHg LA, reg cuff BP Diastolic Sitting 90 mmHg LA, reg cuff BP Systolic Standing 166 mmHg LA BP Diastolic Standing 92 mmHg LA Respiratory Rate 16 /min BMI (Body Mass Index) 26.8 kg/m2 Ejection Fraction 55-60% 10/06/14 10/24/2014 Height 64 inches 5'4" Weight 154.25 lb without shoes Heart Rate 80 /min 70 sit and stand HR reg BP Systolic Sitting 160 mmHg LA reg cuff BP Diastolic Sitting 80 mmHg LA reg cuff BP Systolic Standing 168 mmHg LA reg cuff BP Diastolic Standing 88 mmHg LA reg cuff Respiratory Rate 17 /min BMI (Body Mass Index) 26.5 kg/m2 Ejection Fraction 55-60% date 10/06/14 ECHO Results Test Date Test Result H/L Range Note Basic Metabolic Panel 12/05/2014 Sodium 136 mmol/L 133-145 Potassium 4.1 mmol/L 3.5-5.0 Chloride 99 mmol/L Low 101-111 Co2 Carbon Dioxide 28 mmol/L 22-32 Anion Gap 9 mmol/L 2-11 Glucose 97 mg/dL 70-100 Blood Urea Nitrogen 16 mg/dL 6-24 Creatinine 0.69 mg/dL 0.51-0.95 BUN/Creatinine Ratio 23.2 High 8-20 Calcium 10.0 mg/dL 8.6-10.3 Egfr Non- 84.1 >60 Egfr 108.2 >60 1 Laboratory test finding 12/05/2014 LDL Cholesterol Direct 85 mg/dL 2 Ast (Sgot) 33 U/L 13-39 1 Because ethnic data is not always readily available, this report includes an eGFR for both -Americans and non- Americans. The National Kidney Disease Education Program (NKDEP) does not endorse the use of the MDRD equation for patients that are not between the ages of 18 and 70, are , have extremes of body size, muscle mass, or nutritional status, or are non- or non-. According to the National Kidney Foundation, irrespective of diagnosis, the stage of the disease is based on the level of kidney function: Stage Description GFR(mL/min/1.73 m(2)) 1 Kidney damage with normal or decreased GFR 90 2 Kidney damage with mild decrease in GFR 60-89 3 Moderate decrease in GFR 30-59 4 Severe decrease in GFR 15-29 5 Kidney failure <15 (or dialysis) 2 Desirable: <100 mg/dL Near Optimal: 100-129 mg/dL Borderline High: 130-159 mg/dL High: 160-189 mg/dL Very High: >189 mg/dL Procedures Date CPT Code Description Status 03/10/2017 42472 EKG Tracing & Interpretation Completed 08/18/2016 20372 EKG, Interpretation Only Completed 08/17/2016 90712 ECHO Transthorasic Realtime 2D W Doppler & Color Completed [facility] 08/17/2016 46630 EKG, Interpretation Only Completed 10/06/2014 08563 ECHO Transthorasic Realtime 2D W Doppler & Color Completed [facility] 10/05/2014 96400 Left Heart Cath. Incl S/I Coronaries, Angio S/I V Gram Completed If Done 10/05/2014 39264 EKG, Interpretation Only Completed Encounters Type Date Location Provider CPT E/M Dx Office Visit 08/18/2016 [facility], [place] [address] I16.0 12:59p Hospitalists R74.8 E78.5 F41.9 Office Visit 08/17/2016 12:58p [facility], [place] [address] I16.0 Hospitalists F41.9 R74.8 E78.5 Office Visit 08/17/2016 12:13p [facility] Regan Sandoval, 89726 R00.2 Pocket Cutter At [facility] PRAVEEN KLEIN, FSCAI I10 Office Visit 12/31/2014 8:00a [facility] Cee Maldonado M.D. 31839 I47.1 Pocket Cutter E78.2 I10 I25.10 Office Visit 10/24/2014 8:20a [facility] Regan Sandoval, 98270 785.1 Pocket Cutter At [facility] PRAVEEN KLEIN, [facility] Office Visit 10/06/2014 11:57a [facility] Елена Maldonado M.D. 25261 785.1 Pocket Cutter 790.99 Office Visit 10/05/2014 10:38a [facility] Regan Sandoval, 05058 785.1 Pocket Cutter At [facility] PRAVEEN KLEIN, FSCAI 790.99 Office Visit 10/05/2014 10:34a [facility] Елена Maldonado M.D. 51986 790.99 Pocket Cutter 785.1 Plan of Care 12/31/2014 - Cee Maldonado M.D.I47.1 Supraventricular tachycardiaComments:Stay away from the cold combo [id number] Mixed hyperlipidemiaComments:LDL is good at 85, Triglycerides were elevated at [facility], work on low "white" diet.I10 Essential (primary) hypertensionComments:Well controlledRecommendations:Talk to Dr. Dixon about ovwbzswT19.10 Athscl heart disease of [place] coronary artery w/o ang pctrsComments:To prevent more plaque build up we need to optimize risks: cholesterol, blood pressure, diet and exercise.Follow up:PRN
[2017-03-25] MEDS: Enoxaparin(*) 40 MG/0.4 ML SYR SUBCUT SCH (15:32)
[2017-03-25] MEDS: Diazepam TAB(*) 2 MG PO PRN ×2 (15:33→23:33)
[2017-03-25] MEDS: Acetaminophen TAB* 325 MG PO PRN (15:33)
[2017-03-25] MEDS: NS 0.9% 1000 ML* 1,000 ML IV SCH (15:38)
[2017-03-25] MEDS: Piperacillin/Tazobac ADVAN(*) 3.375 GM in NS 0.9% 100 ML* 100 ML IVPB SCH (18:48)
[2017-03-25 19:51] LABS: Urine Appearance Clear; Urine Blood Negative (Negative); Urine Color Yellow; Urine Ketones Negative (Negative); Urine Protein Negative (Negative); Urine Specific Gravity 1.012 (1.010-1.030); Urine Urobilinogen Negative (Negative)
[2017-03-25] MEDS: Docusate CAP* 100 MG PO SCH (20:24)
[2017-03-25] MEDS: oxyCODONE/Acetamin 5/325 MG* TAB PO PRN (22:19)
[2017-03-26] MEDS: Piperacillin/Tazobac ADVAN(*) 3.375 GM in NS 0.9% 100 ML* 100 ML IVPB SCH ×4 (00:24→19:14)
[2017-03-26] MEDS: Vancomycin(*) 750 MG in NS 0.9% 250 ML* 250 ML IVPB SCH ×2 (04:45→17:06)
[2017-03-26] MEDS: oxyCODONE/Acetamin 5/325 MG* TAB PO PRN (05:40)
[2017-03-26] MEDS: NS 0.9% 1000 ML* 1,000 ML IV SCH (06:46)
[2017-03-26 06:49] LABS: ABS Basophils 0 10^3/ul (0-0.2); ABS Eosinophils 0.1 10^3/ul (0-0.6); ABS Lymphocytes 0.4 10^3/ul (1.0-4.8); ABS Monocytes 0.4 10^3/ul (0-0.8); ABS Neutrophils 2.3 10^3/ul (1.5-7.7); ABS Nucleated RBC 0.01 10^3/ul; Eosinophil % 3.4 % (0-6); Hematocrit 31 % (35-47); Hemoglobin 10.2 g/dl (12.0-16.0); Lymphocyte % 12.8 % (25-47); Mean Corpuscular HGB Conc 33 g/dl (31-36); Mean Corpuscular Hemoglobin 25 pg (27-31); Mean Corpuscular Volume 75 fL (80-97); Mean Platelet Volume 8 um3 (7.4-10.4); Nucleated Red Blood Cells % 0.2; Platelet Count 236 10^3/ul (150-450); Red Cell Distribution Width 19 % (10.5-15); White Blood Count 3.3 10^3/ul (3.5-10.8)
[2017-03-26] MEDS: Aspirin EC Low Dose* 81 MG TAB.EC PO SCH (07:52)
[2017-03-26] MEDS: Diazepam TAB(*) 2 MG PO PRN ×2 (07:52→17:15)
[2017-03-26] MEDS: Docusate CAP* 100 MG PO SCH ×2 (07:52→20:09)
--- NOTE | 2017-03-26 08:04 | RAD ---
Indication: Fever. 2 views of the chest including dual energy PA views demonstrate no mediastinal shift. Heart is of normal size and configuration. Lung perez appear hyperinflated. No pleural fluid, pneumonia or pneumothorax is noted. IMPRESSION: No active cardiopulmonary disease is noted.
[2017-03-26] MEDS ORDERED: Losartan TAB* 25 MG PO ONE (09:13)
[2017-03-26] MEDS ORDERED: NS 0.9% 1000 ML* 1,000 ML IV SCH (09:16)
[2017-03-26] MEDS ORDERED: Magnesium Sulfate IV* 3 GM in NS 0.9% 100 ML* 100 ML IVPB ONE (09:32)
[2017-03-26] MEDS ORDERED: Magnesium Sulfate 2 GM IV IVPB ONE (10:00)
[2017-03-26] MEDS: Atenolol TAB* 25 MG PO SCH (10:16)
[2017-03-26] MEDS ORDERED: Magnesium Sulfate 1 GM IV* 1 GM/100 ML BAG IV ONE (11:00)
[2017-03-26] MEDS: Acetaminophen TAB* 325 MG PO PRN ×2 (11:42→20:09)
[2017-03-26] MEDS: Enoxaparin(*) 40 MG/0.4 ML SYR SUBCUT SCH (14:58)
[2017-03-26] MEDS: Ondansetron INJ* 2 MG/ML VIAL IV PRN (17:15)
[2017-03-26] MEDS: Potassium Chlor TAB* 20 MEQ TAB.ER PO SCH (20:09)
[2017-03-27] MEDS: Piperacillin/Tazobac ADVAN(*) 3.375 GM in NS 0.9% 100 ML* 100 ML IVPB SCH ×5 (00:02→23:51)
[2017-03-27] MEDS: Diazepam TAB(*) 2 MG PO PRN ×2 (00:17→17:37)
[2017-03-27] MEDS: Vancomycin(*) 750 MG in NS 0.9% 250 ML* 250 ML IVPB SCH (05:34)
[2017-03-27 05:42] LABS: ABS Basophils 0 10^3/ul (0-0.2); ABS Eosinophils 0.1 10^3/ul (0-0.6); ABS Lymphocytes 0.5 10^3/ul (1.0-4.8); ABS Monocytes 0.5 10^3/ul (0-0.8); ABS Neutrophils 1.6 10^3/ul (1.5-7.7); ABS Nucleated RBC 0 10^3/ul; Eosinophil % 3.7 % (0-6); Hematocrit 30 % (35-47); Hemoglobin 9.9 g/dl (12.0-16.0); Lymphocyte % 18.9 % (25-47); Mean Corpuscular HGB Conc 33 g/dl (31-36); Mean Corpuscular Hemoglobin 25 pg (27-31); Mean Platelet Volume 7 um3 (7.4-10.4); Nucleated Red Blood Cells % 0.1; Platelet Count 257 10^3/ul (150-450); Red Blood Count 3.98 10^6/ul (4.0-5.4); Red Cell Distribution Width 18 % (10.5-15)
[2017-03-27] MEDS: Acetaminophen TAB* 325 MG PO PRN ×2 (05:46→17:36)
[2017-03-27 05:50] LABS: Mean Corpuscular Volume 75 fL (80-97); White Blood Count 2.8 10^3/ul (3.5-10.8)
[2017-03-27 05:55] LABS: EGFR Non-African American 83.4 (>60)
[2017-03-27] MEDS: Aspirin EC Low Dose* 81 MG TAB.EC PO SCH (09:14)
[2017-03-27] MEDS: Atenolol TAB* 25 MG PO SCH (09:14)
[2017-03-27] MEDS: Docusate CAP* 100 MG PO SCH ×2 (09:14→19:42)
[2017-03-27] MEDS: Potassium Chlor TAB* 20 MEQ TAB.ER PO SCH ×2 (09:14→19:33)
[2017-03-27] MEDS: Enoxaparin(*) 40 MG/0.4 ML SYR SUBCUT SCH (14:42)
[2017-03-27] MEDS ORDERED: Vancomycin Trough Check NOTE FOLLOW UP ONE (16:30)
[2017-03-27] MEDS ORDERED: VANCOMYCIN IVPB SCH (17:00)
[2017-03-27] MEDS ORDERED: D5W IVPB SCH (17:00)
[2017-03-27] MEDS: Vancomycin(*) 1,000 MG in D5W 250 ML BAG* 250 ML IVPB SCH (17:36)
[2017-03-28] MEDS: Acetaminophen TAB* 325 MG PO PRN ×2 (03:27→15:02)
[2017-03-28] MEDS: Diazepam TAB(*) 2 MG PO PRN ×2 (03:28→21:02)
[2017-03-28] MEDS: Vancomycin(*) 1,000 MG in D5W 250 ML BAG* 250 ML IVPB SCH (05:25)
[2017-03-28 05:56] LABS: ABS Basophils 0 10^3/ul (0-0.2); ABS Eosinophils 0.1 10^3/ul (0-0.6); ABS Lymphocytes 0.6 10^3/ul (1.0-4.8); ABS Monocytes 0.9 10^3/ul (0-0.8); ABS Neutrophils 1.8 10^3/ul (1.5-7.7); ABS Nucleated RBC 0 10^3/ul; Hematocrit 28 % (35-47); Hemoglobin 9.5 g/dl (12.0-16.0); Lymphocyte % 16.8 % (25-47); Mean Corpuscular HGB Conc 34 g/dl (31-36); Mean Corpuscular Hemoglobin 25 pg (27-31); Mean Platelet Volume 7 um3 (7.4-10.4); Nucleated Red Blood Cells % 0; Platelet Count 275 10^3/ul (150-450); Red Blood Count 3.75 10^6/ul (4.0-5.4); Red Cell Distribution Width 19 % (10.5-15); White Blood Count 3.3 10^3/ul (3.5-10.8)
[2017-03-28 05:57] LABS: Mean Corpuscular Volume 75 fL (80-97)
[2017-03-28] MEDS: Piperacillin/Tazobac ADVAN(*) 3.375 GM in NS 0.9% 100 ML* 100 ML IVPB SCH ×4 (06:13→19:54)
[2017-03-28] MEDS: Potassium Chlor TAB* 20 MEQ TAB.ER PO SCH ×2 (08:08→19:49)
[2017-03-28] MEDS: Atenolol TAB* 25 MG PO SCH (08:08)
[2017-03-28] MEDS: Aspirin EC Low Dose* 81 MG TAB.EC PO SCH (08:09)
[2017-03-28] MEDS: Docusate CAP* 100 MG PO SCH ×2 (08:09→19:56)
[2017-03-28] MEDS ORDERED: Magnesium Sulfate IV* 3 GM in NS 0.9% 100 ML* 100 ML IVPB ONE (09:44)
[2017-03-28] MEDS: Ondansetron INJ* 2 MG/ML VIAL IV PRN (10:31)
[2017-03-28] MEDS: Enoxaparin(*) 40 MG/0.4 ML SYR SUBCUT SCH (14:50)
[2017-03-29] MEDS: Piperacillin/Tazobac ADVAN(*) 3.375 GM in NS 0.9% 100 ML* 100 ML IVPB SCH ×3 (02:13→14:20)
[2017-03-29] MEDS: Acetaminophen TAB* 325 MG PO PRN (04:32)
[2017-03-29] MEDS ORDERED: Vancomycin Trough Check NOTE FOLLOW UP ONE (05:30)
[2017-03-29 06:47] LABS: ABS Basophils 0 10^3/ul (0-0.2); ABS Eosinophils 0.1 10^3/ul (0-0.6); ABS Lymphocytes 0.8 10^3/ul (1.0-4.8); ABS Monocytes 0.9 10^3/ul (0-0.8); ABS Neutrophils 2.4 10^3/ul (1.5-7.7); ABS Nucleated RBC 0.01 10^3/ul; Eosinophil % 1.9 % (0-6); Hematocrit 28 % (35-47); Hemoglobin 9.3 g/dl (12.0-16.0); Lymphocyte % 19.1 % (25-47); Mean Corpuscular HGB Conc 34 g/dl (31-36); Mean Corpuscular Hemoglobin 25 pg (27-31); Mean Corpuscular Volume 74 fL (80-97); Mean Platelet Volume 7 um3 (7.4-10.4); Nucleated Red Blood Cells % 0.1; Platelet Count 324 10^3/ul (150-450); Red Blood Count 3.75 10^6/ul (4.0-5.4); Red Cell Distribution Width 19 % (10.5-15); White Blood Count 4.2 10^3/ul (3.5-10.8)
[2017-03-29 07:00] LABS: EGFR Non-African American 24.9 (>60)
[2017-03-29] MEDS: Aspirin EC Low Dose* 81 MG TAB.EC PO SCH (07:53)
[2017-03-29] MEDS: Potassium Chlor TAB* 20 MEQ TAB.ER PO SCH ×2 (07:53→20:59)
[2017-03-29] MEDS: Atenolol TAB* 25 MG PO SCH (07:53)
[2017-03-29] MEDS: Docusate CAP* 100 MG PO SCH ×2 (07:55→20:59)
[2017-03-29 11:41] LABS: EGFR Non-African American 24.1 (>60)
[2017-03-29] MEDS: NS 0.9% 1000 ML* 1,000 ML IV SCH ×2 (13:01→22:09)
[2017-03-29] MEDS: Enoxaparin(*) 40 MG/0.4 ML SYR SUBCUT SCH (14:20)
--- NOTE | 2017-03-29 16:04 | RAD ---
INDICATION: Elevated creatinine COMPARISON: CT chest abdomen pelvis dated March 15, 2017 TECHNIQUE: Real-time ultrasound examination of the bilateral kidneys and urinary bladder including grayscale and Doppler color flow analysis. FINDINGS: At the lower pole the left kidney there is an echogenic and mildly vascular mass measuring 2.4 x 1.6 x 1.8 cm corresponding to a partial fat density mass seen on the March 15, 2017 CT examination. Otherwise bilaterally the kidneys are normal in size and echogenicity. There are no renal calculi or hydronephrosis identified. The thakkar of the urinary bladder are smooth. The pre and post urinary bladder volumes are 217 mL and 5 mL, respectively. Normal ureteral jets are identified bilaterally. IMPRESSION: 1. 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 Not until AML measure 4 cm in average diameter do they have and annual risk of spontaneous hemorrhage of 1% per year. 2. Otherwise normal ultrasound of the kidneys and bladder.
[2017-03-29] MEDS: Diazepam TAB(*) 2 MG PO PRN (17:04)
[2017-03-29] MEDS: ZOSYN 3.375 GM Q8H per EXTENDED INFUSION IVPB SCH ×2 (20:59)
[2017-03-30 05:24] LABS: EGFR Non-African American 27.2 (>60)
[2017-03-30] MEDS: NS 0.9% 1000 ML* 1,000 ML IV SCH ×2 (06:31→14:56)
[2017-03-30] MEDS: ZOSYN 3.375 GM Q8H per EXTENDED INFUSION IVPB SCH ×4 (09:00→21:12)
[2017-03-30] MEDS: Docusate CAP* 100 MG PO SCH ×2 (09:00→20:10)
[2017-03-30] MEDS: Aspirin EC Low Dose* 81 MG TAB.EC PO SCH (09:01)
[2017-03-30] MEDS: Atenolol TAB* 25 MG PO SCH (09:01)
[2017-03-30] MEDS: Ondansetron INJ* 2 MG/ML VIAL IV PRN (09:01)
[2017-03-30] MEDS: Potassium Chlor TAB* 20 MEQ TAB.ER PO SCH ×2 (09:01→20:05)
[2017-03-30] MEDS: Diazepam TAB(*) 2 MG PO PRN ×3 (09:09→23:11)
--- NOTE | 2017-03-30 11:46 | PN ---
Progress Note - Progress Note Date of Service: 03/30/17 SOAP: Subjective: poor appetite that she relates to her nerves. takes xanax q6 hrs at home and q8 here. abd pain improved. nursing reported some serosanginous drainage this am from wound, none currently. Objective: Vital Signs Temp Pulse Resp BP Pulse Ox 98.6 F 78 16 154/61 95 03/30/17 09:16 03/30/17 07:31 03/30/17 09:09 03/30/17 07:31 03/30/17 07:31 perr eomi op moist cta bl s1 s2 nl soft nt brauny edema around periumbilical region and port, no drainage, minimal skin sloughing, well within prior markings no le edema A+O x 3 grossly nonfocal Acetaminophen (Tylenol Tab*) 650 mg PO Q4H PRN PRN Reason: FEVER/PAIN Last Admin: 03/29/17 04:32 Dose: 650 mg Aspirin (Aspirin Ec Low Dose*) 81 mg PO DAILY [facility] Last Admin: 03/30/17 09:01 Dose: 81 mg Atenolol (Tenormin Tab*) 37.5 mg PO DAILY [facility] Last Admin: 03/30/17 09:01 Dose: 37.5 mg Diazepam (Valium Tab(*)) 2 mg PO Q6H PRN PRN Reason: ANXIETY Docusate Sodium (Colace Cap*) 100 mg PO BID [facility] Last Admin: 03/30/17 09:00 Dose: Not Given Enoxaparin Sodium (Lovenox(*)) 40 mg SUBCUT Q24H [facility] Last Admin: 03/29/17 14:20 Dose: 40 mg Heparin Sodium (Porcine) (Heparin Flush Picc/Ml/Cvc(*)) 1 ml FLUSH 0600,1800 [facility] PRN Reason: Protocol Last Admin: 03/30/17 04:28 Dose: Not Given Sodium Chloride (Ns 0.9% 1000 Ml*) 1,000 mls @ 125 mls/hr IV PER RATE [facility] Last Admin: 03/30/17 06:31 Dose: 125 mls/hr Piperacillin Sod/Tazobactam (Sod 3.375 gm/ Sodium Chloride) 100 mls @ 25 mls/ hr IVPB Q12H [facility] Last Admin: 03/30/17 09:00 Dose: 25 mls/hr Ondansetron HCl (Zofran Inj*) 4 mg IV Q4H PRN PRN Reason: NAUSEA/VOMITING Last Admin: 03/30/17 09:01 Dose: 4 mg Oxycodone/Acetaminophen (Percocet 5/325 Tab*) 1 tab PO Q4H PRN PRN Reason: Pain Last Admin: 03/26/17 05:40 Dose: 1 tab Potassium Chloride (Klor Con Er Tab*) 20 meq PO BID [place] Last Admin: 03/30/17 09:01 Dose: 20 meq Laboratory Results - last 24 hr 03/30/17 05:00 Sodium 133 Potassium 4.0 Chloride 105 Carbon Dioxide 21 L Anion Gap 7 BUN 13 Creatinine 1.82 H Est GFR ( Amer) 35.0 Est GFR (Non-Af Amer) 27.2 BUN/Creatinine Ratio 7.1 L Glucose 79 Calcium 7.5 L Assessment: 72 yo F w metastatic carcinoma of unknown primary sp diagnostic laparoscopy on 03/14 and carbo/taxol on 03/18 now with port site cellulitis and acute renal failure. Plan: ARF: I am most suspicious that this is ATN from the vancomycin, though there may be a component of prerenal azotemia as she is improving with hydration -cont IVFs for now -if improving tomorrow can likely stop fluids and dc on oral abx cellulitis: clearly improving given receding cellulitis, though if spikes again will need CT A/P to rule out an abscess metastatic CA of unknown primary: if continues to improve can likely still get carbo/taxol next week -could get locally if necessary anxiety: long standing, on xanax as outpatient q6 hrs, will increase it to this full code lovenox dvt prophylaxis
[2017-03-30] MEDS: Acetaminophen TAB* 325 MG PO PRN ×2 (12:43→20:05)
[2017-03-30] MEDS ORDERED: Enoxaparin(*) 30 MG/0.3 ML SYR SUBCUT SCH (15:00)
[2017-03-31] MEDS: Acetaminophen TAB* 325 MG PO PRN (02:00)
[2017-03-31] MEDS: NS 0.9% 1000 ML* 1,000 ML IV SCH (03:26)
[2017-03-31] MEDS: Diazepam TAB(*) 2 MG PO PRN (05:14)
[2017-03-31 05:16] LABS: ABS Basophils 0.1 10^3/ul (0-0.2); ABS Eosinophils 0.1 10^3/ul (0-0.6); ABS Lymphocytes 0.6 10^3/ul (1.0-4.8); ABS Monocytes 0.5 10^3/ul (0-0.8); ABS Neutrophils 3.4 10^3/ul (1.5-7.7); ABS Nucleated RBC 0 10^3/ul; Eosinophil % 2.3 % (0-6); Hematocrit 26 % (35-47); Hemoglobin 8.6 g/dl (12.0-16.0); Lymphocyte % 13.5 % (25-47); Mean Corpuscular HGB Conc 33 g/dl (31-36); Mean Corpuscular Hemoglobin 25 pg (27-31); Mean Platelet Volume 7 um3 (7.4-10.4); Nucleated Red Blood Cells % 0; Platelet Count 354 10^3/ul (150-450); Red Blood Count 3.49 10^6/ul (4.0-5.4); Red Cell Distribution Width 19 % (10.5-15); White Blood Count 4.7 10^3/ul (3.5-10.8)
[2017-03-31 05:17] LABS: Mean Corpuscular Volume 74 fL (80-97)
[2017-03-31 05:24] LABS: EGFR Non-African American 30.5 (>60)
[2017-03-31] MEDS: Ondansetron INJ* 2 MG/ML VIAL IV PRN (07:58)
[2017-03-31] MEDS: Atenolol TAB* 25 MG PO SCH (07:59)
[2017-03-31] MEDS: Potassium Chlor TAB* 20 MEQ TAB.ER PO SCH (07:59)
[2017-03-31] MEDS: Docusate CAP* 100 MG PO SCH (07:59)
[2017-03-31] MEDS: Aspirin EC Low Dose* 81 MG TAB.EC PO SCH (07:59)
[2017-03-31] MEDS: ZOSYN 3.375 GM Q8H per EXTENDED INFUSION IVPB SCH ×2 (08:27)
[2017-03-31 09:10] VITALS: BP 175/84
--- NOTE | 2017-03-31 09:34 | DS ---
- Discharge Summary ADMIT DATE: 03/25/2017 DISCHARGE DATE:03/31/2017 DISCHARGE DIAGNOSIS: 1.postoperative cellulitis 2. Acute renal failure, ATN from antibiotics 3. metastatic adenocarcinoma of unknown primary 4. pancytopenia, chemotherapy induced 5. hypokalemia 6. HTN 7. anxiety DISCHARGE MEDICATIONS: Home Medications Medication Instructions Recorded Confirmed Type Calcium Carbonate-Cholecalcife 1 tab PO BID 08/01/13 03/25/17 History [Caltrate 600+D] Aspirin [Aspirin 81 MG TAB] 81 mg PO DAILY 08/17/16 03/25/17 History Atorvastatin* [Lipitor 20 MG*] 20 mg PO BEDTIME 08/17/16 03/25/17 History Diazepam TAB(*) [Valium TAB(*)] 2 - 4 mg PO DAILY PRN 08/17/16 03/25/17 History Atenolol TAB* [Tenormin TAB* 25 MG] 25 mg PO BID #60 08/18/16 03/25/17 Rx Losartan TAB* [Cozaar TAB*] 25 mg PO DAILY 02/17/17 03/25/17 History Acetaminophen TAB* [Tylenol TAB*] 650 mg PO Q4H PRN tab 03/31/17 Rx Amoxicillin/Clavulanate TAB* 875 mg PO BID #14 tab 03/31/17 Rx [Augmentin TAB 875*] Docusate CAP* [Colace Cap*] 100 mg PO BID cap 03/31/17 Rx Ondansetron TAB* [Zofran 4 MG Tab*] 4 mg PO Q6H PRN #30 tab 03/31/17 Rx Potassium Chlor TAB* [Potassium 20 meq PO BID #60 tab.er 03/31/17 Rx Chlor TAB 20 MEQ*] Prochlorperazine TAB* [Compazine 10 mg PO Q6H PRN #30 tab 03/31/17 Rx Tab*] HOSPITAL COURSE: Donna had an exploratory laparotomy on 03/14 and carboplatin/paclitaxel chemotherapy on 03/18. On 03/25 she developed fevers and abdominal pain around the incision site and was noted to have a periumbilical and periportal (lap port ) cellulitis. She was treated with IV antibiotics with marked improvement but did developed acute renal failure that was likely related to both vancomycin ( ATN) and prerenal azotemia from poor PO intake. She responded nicely to fluids and holding her vancomycin. She has defervesced and will be discharged home on augmentin for 7 more days. She will follow up at [place] on Tuesday for labs and potential cycle 2 of carbo/taxol. She will call with any recurrent fevers or extension of her erythema. >30 mins spent, >50% in face to face counseling
== END 2017-03-31 11:40 | disposition home or self-care (01) | DRG 919 ==
LOC: MED 14:57
PROVIDERS: ADMIT Internal Medicine Hematology & Oncology; ATTEND Internal Medicine Hematology & Oncology
DX: L76.82 Other postprocedural complications of skin and subcutaneous tissue (principal); D61.810 Antineoplastic chemotherapy induced pancytopenia; N17.0 Acute kidney failure with tubular necrosis; L03.311 Cellulitis of abdominal wall; C79.89 Secondary malignant neoplasm of other specified sites; L03.90 Cellulitis, unspecified; C80.1 Malignant (primary) neoplasm, unspecified; T45.1X5A Adverse effect of antineoplastic and immunosuppressive drugs, initial encounter; I10 Essential (primary) hypertension; F41.9 Anxiety disorder, unspecified; E87.6 Hypokalemia; T36.8X5A Adverse effect of other systemic antibiotics, initial encounter; E78.5 Hyperlipidemia, unspecified; Y83.8 Other surgical procedures as the cause of abnormal reaction of the patient, or of later complication, without mention of misadventure at the time of the procedure; Y92.9 Unspecified place or not applicable; Z92.21 Personal history of antineoplastic chemotherapy; Z88.8 Allergy status to other drugs, medicaments and biological substances; Z72.89 Other problems related to lifestyle; Z80.1 Family history of malignant neoplasm of trachea, bronchus and lung; Z80.8 Family history of malignant neoplasm of other organs or systems
CPT/HCPCS: 1036F; 1126F; 36415; 36592; 71020; 76770; 80048; 80053; 80202; 81003; 82565; 83605; 83735; 85025; 87040; 87070; 87077; 87186; 87205; 96360; 96361; 99214; 99223; 99232; 99233; 99239; A9270-GY; G0463; G8427; J1650; J2405; J2543; J3370; J3475

== ENCOUNTER → 2017-04-21 06:09 | Day surgery (SDC) | payer BC, MEDICARE ==
[~2017-04-21 06:09] MED LIST: Buffered Lidocaine 0.9% SYRIN* 5 ML/SYR SYRINGE INTRADERM ONE; Buffered Lidocaine 0.9% SYRIN* 5 ML/SYR SYRINGE ONE; Lidocaine 1% INJ* 10 MG/ML 30 ML SDV ONE; Lidocaine 2% PF * 5 ML VIAL ONE; Naloxone* 0.4 MG/ML 1 ML VIAL IV PRN; Propofol* 10 MG/ML 20 ML BTL IV PUSH ONE; ceFAZolin 2 GM PREMIX (*) 2 GM/50 ML BAG IVPB ONE; fentaNYL* 50 MCG/ML 2 ML VIAL (100 MCG VIAL) ONE
[2017-04-21 07:54] LABS: EGFR Non-African American 52.5 (>60)
[2017-04-21 08:10] LABS: ABS Basophils 0 10^3/ul (0-0.2); ABS Eosinophils 0.3 10^3/ul (0-0.6); ABS Lymphocytes 1.9 10^3/ul (1.0-4.8); ABS Monocytes 0.6 10^3/ul (0-0.8); ABS Neutrophils 5.8 10^3/ul (1.5-7.7); ABS Nucleated RBC 0 10^3/ul; Eosinophil % 3.2 % (0-6); Hematocrit 35 % (35-47); Hemoglobin 11.3 g/dl (12.0-16.0); Lymphocyte % 22.4 % (25-47); Mean Corpuscular HGB Conc 33 g/dl (31-36); Mean Corpuscular Hemoglobin 24 pg (27-31); Mean Corpuscular Volume 73 fL (80-97); Mean Platelet Volume 8 um3 (7.4-10.4); Nucleated Red Blood Cells % 0.1; Platelet Count 302 10^3/ul (150-450); Red Blood Count 4.76 10^6/ul (4.0-5.4); Red Cell Distribution Width 21 % (10.5-15); White Blood Count 8.7 10^3/ul (3.5-10.8)
[2017-04-21 08:54] VITALS: BP 193/84
--- NOTE | 2017-04-21 08:58 | RAD ---
HISTORY: Port placement COMPARISONS: March 26, 2017 VIEWS: 1: frontal portable view of the chest at 8:40 AM FINDINGS: LINES AND TUBES: A right-sided chest port is noted from a subclavian approach with tip overlying the cavoatrial junction. CARDIOMEDIASTINAL SILHOUETTE: The cardiomediastinal silhouette is normal for portable technique. PLEURA: The costophrenic angles are sharp. No pleural abnormalities are noted. There is no appreciable pneumothorax. LUNG PARENCHYMA: The lungs are clear. ABDOMEN: The upper abdomen is clear. There is no subphrenic gas. BONES AND SOFT TISSUES: No bone or soft tissue abnormalities are noted. IMPRESSION: STATUS POST RIGHT CHEST PORT PLACEMENT. NO ACTIVE CARDIOPULMONARY DISEASE.
--- NOTE | 2017-04-21 10:40 | RAD ---
INDICATION: PowerPort placement COMPARISON: None FINDINGS: 4.6 seconds of fluoroscopy were provided for the surgical department. Fluoroscopic spot imaging of the chest were obtained for operative control and show placement of a right-sided central venous catheter terminating in the superior vena cava near the right atrial junction . CPT II Codes: 6045F (fluoro time doc)
--- NOTE | 2017-04-21 16:13 | OP ---
CC: Dr. Anny Melendrez; Dr. Korey Lewis * DATE OF OPERATION: 04/21/17 - [facility] DATE OF : 43 SURGEON: Savage Hernandez MD RIVER RAFTING GUIDE: None. ANESTHESIOLOGIST: Reagan Rivas MD ANESTHESIA: LMAC anesthesia. PRE-OP DIAGNOSIS: Ovarian carcinoma. POST-OP DIAGNOSIS: Ovarian carcinoma. OPERATIVE PROCEDURE: Placement of right subclavian 8-[employer]itan PowerPort. DESCRIPTION OF PROCEDURE: The patient was supine on the operating room table. After adequate intravenous sedation, compression stockings, Jose Alfredo Hugger warmer, and intravenous antibiotics, the right neck and chest region were prepped with antiseptic, draped in a sterile fashion. Local infiltrative anesthesia was administered. 3-cm right subclavian incision was created. An inferior pocket was created. Subclavian venipuncture was carried out. Guidewire passed through the peel-away introducer, measured, and cut at 22 cm, attached to the port, which was sutured in the pocket with 2-0 Prolene. The pocket was closed with 3-0 and 5-0 Vicryl followed by Steri-Strips. The port was accessed. There was good blood return. It was flushed with saline solution and heparinized solution. Tegaderm dressing was utilized to cover it. She was then awakened and brought to Recovery in good condition. No complications. No drains. No pathologic specimens. Sponge and instrument counts correct. Estimated blood loss less than 10 mL. [id number] #: [id number] MTDD
== END | disposition home or self-care (01) ==
LOC: OR 06:09
PROVIDERS: ATTEND Surgery
DX: C56.9 Malignant neoplasm of unspecified ovary (principal); R93.8 Abnormal findings on diagnostic imaging of other specified body structures; Z88.8 Allergy status to other drugs, medicaments and biological substances; Z79.82 Long term (current) use of aspirin
CPT/HCPCS: 36415; 71045; 76000; 80053; 85025; 86304; C1788; J0690; J1642; J2704; J3010

== ENCOUNTER 2017-05-14 16:55 | Inpatient (IN) | payer MEDICARE ==
--- OUTSIDE RECORDS SUMMARY | 2017-05-14 17:04 | XMS REPORT ---
:1945 External Reference #:[id number] Author Organization [facility] Address [address] [address] Phone [phone] Care Team Providers Name Role Phone Korey Lewis MD Care Team Information Mine Wirer Unavailable Anny Melendrez MD Primary Care Physician Unavailable Payers Type Date Identification Numbers Payment Provider Subscriber Medicare Primary Effective: Policy Number: Medicare Donna Gagnon 2014 [id number] PayID: [id number] [address] [place] [address] Medigap Part B Effective: 2014 Policy Number: Facets Donna Gagnon [id number] PayID: [id number] [address] [address] [place] [address] Medigap Part B Effective: 2014 Policy Number: BS Of Winston Gagnon [id number] Expires: 2014 PayID: [id number] [address] [address] [place] [address] Problems Date Description Provider Status Onset: 10/24/2014 Palpitations Regan Sandoval MD, Active [facility] Onset: 03/10/2017 Preoperative cardiovascular Regan Sandoval MD, Active examination [facility], [facility] Onset: 12/31/2014 Athscl heart disease of [place] Cee Maldonado M.D. Active coronary artery w/o [...] Alerts Date Description Reaction Status Severity Comments 04/08/2017 Epinephrine active tacchycardia 10/24/2014 NKDA inactive Medications Medication Date Status Form Strength Qnty SIG Indications Ordering Provider Atorvastatin Active Tablets 20mg take 1 Vaishnavi Calcium 015 tablet at MD Zack bedtime Citracal Plus Active Tablets 1 tablet Unknown Vitamin D 000 po twice daily Am/PM Diazepam Active Tablets 2mg take 1 Unknown 000 tablet by mouth every 6 hours if needed for anxiety Atenolol Active Tablets 25mg 1 tablet Unknown 000 q am, 1/2 po q pm Aleve Active 220mg as needed Unknown [address] Adult Active Tablets DR 81mg 1 by Unknown Low Dose 000 mouth every day Amoxicillin/Cla Active Tablets 875-125mg 1 by Unknown vulanate 000 mouth Potassium twice a day Amlodipine Hx Tablets 5mg 1 by Vaishnavi Besylate 015 - mouth MD Zack every day 017 [place] Low Dose Hx Chewtabs 81mg 1 chew Unknown 000 tablet po daily Am Losartan Hx Tablets 25mg 1 by Unknown Potassium 000 mouth every day Vital Signs Date Vital Result Comment 04/15/2017 Body Temperature 98.9 F 04/13/2017 Heart Rate 72 /min Respiratory Rate 16 /min Body Temperature 97.5 F 04/11/2017 Heart Rate 72 /min Respiratory Rate 16 /min Body Temperature 97.8 F 04/08/2017 Height 64 inches 5'4" Weight 153.00 lb Heart Rate 78 /min BP Systolic 142 mmHg BP Diastolic 80 mmHg Respiratory Rate 18 /min Body Temperature 99.3 F BMI (Body Mass Index) 26.3 kg/m2 03/10/2017 Height 64 inches 5'4" Weight 155.12 [...] Test Date Test Result H/L Range Note Wound Culture/Sensi 04/08/2017 Wound/Misc SEE RESULT BELOW 1 Culture-Gram Stain Basic Metabolic Panel 12/05/2014 Sodium 136 mmol/L 133-145 Potassium 4.1 mmol/L 3.5-5.0 Chloride 99 mmol/L Low 101-111 Co2 Carbon Dioxide 28 mmol/L 22-32 Anion Gap 9 mmol/L 2-11 Glucose 97 mg/dL 70-100 Blood Urea Nitrogen 16 mg/dL 6-24 Creatinine 0.69 mg/dL 0.51-0.95 BUN/Creatinine Ratio 23.2 High 8-20 Calcium 10.0 mg/dL 8.6-10.3 Egfr Non- 84.1 >60 Egfr 108.2 >60 2 Laboratory test finding 12/05/2014 LDL Cholesterol Direct 85 mg/dL 3 Ast (Sgot) 33 U/L 13-39 1 SEE RESULT BELOW Name: DONNA GAGNON DOB: [address]: Savage Hernandez MD Acct: [id number] Unit: [id number] AGE: 72 Location: [facility] Re04/08/17 SEX: F Status: REG REF SPEC: [id number] DIVINA: 04/08/[address]: Savage Hernandez MD REQ: [id number] RECD: 04/08/17 STATUS: COMP _ SOURCE: WOUND SPDESC: ORDERED: Culture Stain COMMENTS: [id number] please CC Dr. Lucas from [facility] Specimen Description abdomen abscess Procedure Result Reported Site Wound/Misc Gram Stain Final 04/09/17- 819 ML 1+ Epithelial Cells 3+ Neutrophils 1+ Gram Positive Cocci in Chains, resembling Strep 1+ Gram Positive Bacilli Wound/Misc Culture Final 04/11/17- 918 ML Organism 1 KLEBSIELLA PNEUMONIAE Quantity 2+ Organism 2 ENTEROCOCCUS FAECALIS Quantity 2+ 1. KLEBSIELLA PNEUMONIAE M.I.C. RX --------- ------ Ampicillin >=32 R Cefazolin <=4 S Cefepime <=1 S Ceftriaxone <=1 S Ciprofloxacin <=0.25 S Gentamicin <=1 S Levofloxacin <=0.12 S Meropenem <=0.25 S Nitrofurantoin 64 I CONTINUED ON NEXT PAGE * ML=Testing performed at Main Lab DEPARTMENT OF PATHOLOGY, [address] [place] [address] Juancarlos Barrera M.D. Director [facility] # [id number] Patient: DONNA GAGNON [id number] (Continued) Specimen: [id number] Collected: 04/08/17120 Received: 04/08/17-4550 (Continued) Procedure Result Reported Site Wound/Misc Culture Final (continued) 04/11/17918 1. KLEBSIELLA PNEUMONIAE (continued) M.I.C. RX --------- ------ Tetracycline <=1 S Pipercillin/Tazobactam <=4 S Trimethoprim/Sulfamethoxazole <=20 S Amoxicillin/Clavulanic Acid <=2 S Aztreonam <=1 S 2. ENTEROCOCCUS FAECALIS M.I.C. RX --------- ------ Ampicillin <=2 S Penicillin 2 S Ciprofloxacin <=0.5 S Erythromycin 2 I Gentamicin High Level S Levofloxacin 1 S Linezolid 2 S Nitrofurantoin <=16 S * Quinupristin/Dalfopristin 4 R * Streptomycin High Level S Tetracycline <=1 S Doxycycline - Deduced S * Minocycline - Deduced S Tigecycline <=0.12 S Vancomycin 2 S Imipenem-Deduced S * Ampicillin/Sulbactam-Deduced S * These antibiotics are not available in the [facility] Formulary Contact the Microbiology Department for any additional antibiotic reporting. CONTINUED ON NEXT PAGE * ML=Testing performed at Main Lab DEPARTMENT OF PATHOLOGY, [address] [place] [address] Juancarlos Barrera M.D. Director [facility] # [id number] Patient: DONNA GAGNON [id number] (Continued) Specimen: [id number] Collected: 04/08/17 Received: 04/08/17 (Continued) Procedure Result Reported Site Wound/Misc Culture Final (continued) Contact the Microbiology Department for any additional antibiotic reporting. * ML - MAIN LAB ([facility]) . END OF REPORT * ML=Testing performed at Main Lab DEPARTMENT OF PATHOLOGY, [address] [place] [address] Juancarlos Barrera M.D. Director [facility] # [id number] 2 Because ethnic data is not always readily [...] 15-29 5 Kidney failure <15 (or dialysis) 3 Desirable: <100 mg/dL Near Optimal: 100-129 mg/dL Borderline High: 130-159 mg/dL High: 160-189 mg/dL Very High: >189 mg/dL Procedures Date CPT Code Description Status 04/08/2017 06276 I&D Of Abscess Complicated Completed 03/10/2017 41117 EKG Tracing & Interpretation Completed 08/18/2016 08203 EKG, Interpretation Only Completed 08/17/2016 04996 ECHO Transthorasic Realtime 2D W Doppler & Color Completed [facility] 08/17/2016 64297 EKG, Interpretation Only Completed 10/06/2014 23427 ECHO Transthorasic Realtime 2D W Doppler & Color Completed [facility] 10/05/2014 06975 Left Heart Cath. Incl S/I Coronaries, Angio S/I V Gram Completed If Done 10/05/2014 45874 EKG, Interpretation Only Completed Encounters Type Date Location Provider CPT E/M Dx Office Visit 04/08/2017 [facility] Savage Hernandez, 10433 L02.211 11:00a Of Sage Gallagher C56.9 Office Visit 03/10/2017 2:00p [facility] Regan Sandoval, 55742 Z01.810 Kiln Tender At [facility] MD, FACC, FSCAI Office Visit [facility]/18[facility]2016 [facility], 69262 I16.0 Hospitalists R74.8 E78.5 F41.9 Office Visit 08/17/2016 12:58p [facility], [place] [address] I16.0 Hospitalists F41.9 R74.8 E78.5 Office Visit 08/17/2016 12:13p [facility] Regan Sandoval, 10190 R00.2 Kiln Tender At [facility] PRAVEEN KLEIN, FSCAI I10 Office Visit 12/31/2014 8:00a [facility] Елена Maldonado M.D. 10296 I47.1 [facility] E78.2 I10 I25.10 Office Visit 10/24/2014 8:20a [facility] Of Regan Sandoval, 87621 785.1 [employer]ender At [facility] PRAVEEN KLEIN, FSCAI Office Visit 10/06/2014 11:57a [facility] Елена Maldonado M.D. 41690 785.1 Kil[employer]ender 790.99 Office Visit 10/05/2014 10:38a [facility] Of Regan Sandoval, 04033 785.1 [employer]ender At [facility] PRAVEEN KLEIN, FSCAI 790.99 Office Visit 10/05/2014 10:34a [facility] Елена Maldonado M.D. 04917 790.99 [employer]ender 785.1 Plan of Care 04/15/2017 - Ana Walsh, NPL02.211 Cutaneous abscess of abdominal wallFollow up:has appt 04/19Z48.01 Encounter for change or removal of surgical wound dressing
[2017-05-14] MEDS ORDERED: Ondansetron INJ* 2 MG/ML VIAL IV ONE (17:08)
[2017-05-14] MEDS ORDERED: NS 0.9% 1000 ML* 1,000 ML IV ONE (17:08)
[2017-05-14] MEDS ORDERED: Morphine INJ* 2 MG/ML 1 ML CARPUJECT IV ONE (17:09)
[2017-05-14] MEDS ORDERED: Aspirin Low Dose CHEW TAB* 81 MG ONE (17:59)
[2017-05-14] MEDS ORDERED: Heparin for STEMI(*) 5,000 UNITS/ML 1 ML VIAL IV ONE ×2 (17:59→18:05)
[2017-05-14] MEDS ORDERED: Aspirin Low Dose CHEW TAB* 81 MG PO ONE (18:00)
[2017-05-14] MEDS ORDERED: Heparin(*) 1000 UNIT/ML 10 ML VIAL CATH LAB IV ONE (18:10)
[2017-05-14] MEDS ORDERED: fentaNYL* 50 MCG/ML 2 ML VIAL (100 MCG VIAL) ONE (18:10)
[2017-05-14] MEDS ORDERED: Heparin 2 UNITS/ML IVPREMIX* 2,000 ML IV ONE (18:10)
[2017-05-14] MEDS ORDERED: nitroGLYCERIN DRIP* 25,000 MCG/250 ML BTL ONE (18:11)
[2017-05-14] MEDS ORDERED: VERAPAMIL 2.5 MG/ML 2 ML VIAL ** 5 mg/2 ml ONE (18:11)
[2017-05-14] MEDS ORDERED: Midazolam* 1 MG/ML 10 ML VIAL (10 MG) ONE (18:11)
[2017-05-14] MEDS ORDERED: Lidocaine 1% INJ* 10 MG/ML 30 ML SDV ONE (18:11)
[2017-05-14 18:18] LABS: INR 1.08 (0.77-1.02)
[2017-05-14] MEDS ORDERED: Iohexol 350 (CONTRAST) 200 ML MDV IV ONE (18:18)
[2017-05-14 18:26] LABS: EGFR Non-African American 27.9 (>60)
--- NOTE | 2017-05-14 18:40 | RAD ---
Indication: Hypotension. Metastatic gynecologic malignancy. Abdominal distention. Postop peritonitis following surgery in March 2017. Comparison: April 21, 2017 chest radiograph and March 15, 2017 CT. Technique: Supine AP chest 1806 hours Report: Tip of RIGHT chest port at level of RIGHT atrium. Clear lungs and pleural spaces. No gross evidence for pneumothorax within limits of supine technique. Negative for cardiomegaly. Unremarkable central pulmonary vasculature and mediastinal contours accounting for supine AP technique. Lucency under the peripheral RIGHT hemidiaphragm is concerning for free intraperitoneal air. IMPRESSION: 1. No evidence for acute intrathoracic disease. 2. Potential free air under the RIGHT hemidiaphragm. Consider CT abdomen and pelvis for further assessment. Results discussed with Dr. Almeida 05/14/2017 6:36 PM EST
[2017-05-14 18:45] LABS: ABS Basophils 0 10^3/ul (0-0.2); ABS Eosinophils 0 10^3/ul (0-0.6); ABS Lymphocytes 0.4 10^3/ul (1.0-4.8); ABS Monocytes 0 10^3/ul (0-0.8); ABS Neutrophils 1.4 10^3/ul (1.5-7.7); ABS Nucleated RBC 0 10^3/ul; Eosinophil % 0.1 % (0-6); Hematocrit 33 % (35-47); Hemoglobin 10.6 g/dl (12.0-16.0); Lymphocyte % 20.7 % (25-47); Mean Corpuscular HGB Conc 33 g/dl (31-36); Mean Corpuscular Hemoglobin 26 pg (27-31); Mean Corpuscular Volume 78 fL (80-97); Mean Platelet Volume 9 um3 (7.4-10.4); Nucleated Red Blood Cells % 0.5; Platelet Count 139 10^3/ul (150-450); Red Blood Count 4.16 10^6/ul (4.0-5.4); Red Cell Distribution Width 26 % (10.5-15); White Blood Count 1.8 10^3/ul (3.5-10.8)
[2017-05-14] MEDS ORDERED: Piperacillin/Tazobac ADVAN(*) 3.375 GM in NS 0.9% 100 ML* 100 ML IVPB ONE (19:11)
[2017-05-14] MEDS ORDERED: Vancomycin(*) 1,000 MG VIAL IVPB ONE (19:17)
[2017-05-14] MEDS ORDERED: Vancomycin(*) 1,250 MG IV x ONCE IVPB ONE ×2 (19:30)
--- NOTE | 2017-05-14 19:32 | RAD ---
INDICATION: Free air under the diaphragm on chest radiograph. 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 Hypotensive. COMPARISON: March 15, [address] TECHNIQUE: Multidetector CT images were obtained from the lung bases to the ischial tuberosities. Evaluation of the viscera is limited without IV contrast. Multiplanar reformation. REPORT: Small dependent RIGHT pleural effusion decreased compared with the prior exam. Proportional compressive atelectasis. Tip of chest port at level of RIGHT atrium. Negative for pericardial effusion. Portal venous gas at the liver. Cholelithiasis without additional CT abnormality of the gallbladder. Negative for biliary dilatation. Unremarkable pancreas. Unremarkable spleen. Moderately severe distention of the stomach with gas and liquid. Dilatation of jejunal bowel loops at the LEFT abdomen measuring up to 3.5 cm diameter. Associated air-fluid levels. Extensive pneumatosis of the small bowel most conspicuous at the duodenum. Transition to decompressed small bowel at the LEFT lower quadrant with the exact site of transition not identified. Small volume of inspissated appearing fecal material throughout the colon. Predominant sigmoid colonic diverticulosis without findings of diverticulitis. Small volume of diffuse ascites. Extensive pneumoperitoneum with the largest pockets of gas in the subdiaphragmatic regions. No loculated peritoneal abscess collection evident. Midline laparotomy scar. Normal adrenal glands. Negative for obstructive uropathy. Focal cortical scarring upper pole LEFT kidney. Decompressed urinary bladder. Negative for uterine enlargement. Unremarkable adnexal regions. Negative for lymphadenopathy. Mild atherosclerotic plaque of normal diameter abdominal aorta. Largely decompressed IVC consistent with low volume state. Gas within a portal vein branch extending to the LEFT abdomen. Negative for suspicious osseous lesions. IMPRESSION: 1. Small bowel obstruction with transition point in the LEFT lower quadrant however the exact point of transition is not identified. An adhesion or metastatic lesion of the small bowel is most likely given the clinical context. 2. Extensive pneumatosis and portal venous gas. 3. Pneumoperitoneum. Small volume of diffuse ascites. 4. Interval decrease in volume of small RIGHT pleural effusion. Results discussed with Dr. Almeida 05/14/2017 7:26 PM EST
--- NOTE | 2017-05-14 19:53 | ED ---
Ottoniel Calles Rebecca, scribed for Efrain Almeida MD on 05/14/17 at 1710 . Complex/Multi-Sys Presentation - HPI Summary HPI Summary: Pt is a 72 y/o F BIBA who presents to ED c/o generalized weakness s/p chemotherapy treatment. Pt reports she had her third chemotherapy treatment 2 days ago and has been weak since then. Sx aggravated and alleviated by nothing. Additionally c/o mild SOB, nonproductive cough, chills, nausea, constipation, abdominal distension and lower abdominal pain. Last BM was 2 days ago and has not been relieved with Dulcolax. Denies fever, vomiting. PMHx uterine CA which was operated on in March in [place] (2 months ago) and her third chemotherapy treatment was 2 days ago. Oncologist is Dr. Lewis. - History Of Current Complaint Chief Complaint: EDAbdPain Hx Obtained From: Patient Onset/Duration: Lasting Days - 2 days, Still Present Severity Currently: Moderate - 5/10 Location: Pain At: - Lower abdoman Aggravating Factor(s): Nothing Alleviating Factor(s): Nothing Associated Signs And Symptoms: Positive: Weakness - generalized, SOB - mild, Cough, Nausea, Abdominal Pain. Negative: Vomiting, Fever Related History: Other - Uterine CA - currently undergoing chemotherapy - Allergies/Home Medications Allergies/Adverse Reactions: Allergies Allergy/AdvReac Type Severity Reaction Status Date / Time epinephrine Allergy Palpitation Verified 05/11/17 08:59 s prilocaine Allergy Palpitation Verified 05/11/17 09:03 s NOVOCAIN WITH EPI AdvReac Severe Palpitation Uncoded 04/21/17 06:39 s Home Medications: Home Medications Aspirin EC Low Dose* [Ecotrin EC Low Dose 81 MG*] 81 mg PO DAILY 05/14/17 [ History Confirmed 05/14/17] Dexamethasone TAB* [Decadron TAB*] 8 mg PO .DAILY FOLLOWING CALE 05/14/17 [ History Confirmed 05/14/17] PMH/Surg Hx/FS Hx/Imm Hx Endocrine/Hematology History: Denies: Hx Diabetes, Hx Thyroid Disease Cardiovascular History: Reports: Hx Coronary Artery Disease, Hx Hypercholesterolemia, Hx Hypertension - on meds Denies: Other Cardiovascular Problems/Disorders Respiratory History: Denies: Hx Asthma, Hx Chronic Obstructive Pulmonary Disease (COPD), Hx Pneumonia, Other Respiratory Problems/Disorders GI History: Denies: Hx Ulcer, Other GI Disorders History: Denies: Hx Renal Disease Musculoskeletal History: Denies: Hx Rheumatoid Arthritis, Hx Osteoporosis, Other Musculoskeletal History Sensory History: 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 uterine exploritory, 03/14/2017, [facility] , with infection Hx Anesthesia Reactions: No Infectious Disease History: Unable to Obtain/Confirm Infectious Disease History: Denies: Hx Hepatitis, Hx Human Immunodeficiency Virus (HIV), History Other Infectious Disease, Traveled Outside the [place] in Last 30 Days - Family History Known Family History: Positive: Hypertension Negative: Cardiac Disease, Diabetes - Social History Alcohol Use: Daily Alcohol Amount: 1-2 drinks a day Substance Use Type: Reports: None Hx Tobacco Use: No Smoking Status (MU): Never Smoked Tobacco Review of Systems Positive: Chills, Other - Generalized weakness. Negative: Fever Positive: Shortness Of Breath - mild, Cough - nonproductive Positive: Abdominal Pain, Nausea, Other - constipation, abdominal distension. Negative: Vomiting All Other Systems Reviewed And Are Negative: Yes Physical Exam - Summary Physical Exam Summary: Appearance: Ill-appearing, pale Skin: Dry, No rash Eyes: Normal, PERRL, EOMI, sclera anicteric ENT: Normal Neck: Supple, nontender Respiratory: Clear to auscultation Cardiovascular: Tachycardic, S1, S2 Abdomen: RLQ and RUQ tenderness, no rebound, decreased bowel sounds, no organomegaly Bowel sounds: Decreased Musculoskeletal: Strength/ROM Intact, no edema, pulses symmetrical, extremities cool to touch Neurological: Normal, A&Ox3, follows commands, gait not tested Psychiatric: affect normal, behavior appropriate, dressed appropriately, judgment intact Triage Information Reviewed: Yes Vital Signs On Initial Exam: Initial Vitals Temp Pulse Resp BP Pulse Ox 97 F 114 27 90/61 99 05/14/17 17:00 05/14/17 17:00 05/14/17 17:00 05/14/17 17:00 05/14/17 17:00 Vital Signs Reviewed: Yes Diagnostics - Vital Signs Vital Signs Temp Pulse Resp BP Pulse Ox 05/14/17 17:00 97 F 114 27 90/61 99 - Laboratory Result Diagrams: 05/14/17 17:58 05/14/17 17:58 Lab Statement: Any lab studies that have been ordered have been reviewed, and results considered in the medical decision making process. - Radiology CXR Xray Interpretation: Positive (See Comments) - 1. No evidence for acute intrathoracic disease. 2. Potential free air under the RIGHT hemidiaphragm. Consider CT abdomen and pelvis for further assessment. Results discussed with Dr. Almeida 05/14/2017 6:[address] Almeida reviewed this radiology report. Radiology Interpretation Completed By: Radiologist - CT CT Abd/Pel CT Interpretation: Positive (See Comments) - 1. Small bowel obstruction with transition point in the LEFT lower quadrant however the exact point of transition is not identified. An adhesion or metastatic lesion of the small bowel is most likely given the clinical context. 2. Extensive pneumatosis and portal venous gas. 3. Pneumoperitoneum. Small volume of diffuse ascites. 4. Interval decrease in volume of small RIGHT pleural effusion. Results discussed with Dr. Almeida 05/14/2017 7:[address] Almeida reviewed this radiology report. CT Interpretation Completed By: Radiologist - EKG 1743 Cardiac Rate: NL - 97 bpm EKG Interpretation: Consistent with inferior wall MA 1800 Cardiac Rate: NL EKG Interpretation: 1 mm elevation in the inferior leads Re-Evaluation - Re-Evaluation First Eval Re-Evaluation Time: 17:37 Comment: Hypotensive, repsonded to fluids. Second Eval Re-Evaluation Time: 17:42 Comment: EKG consistent with an inferior wall MA, discussed these results. Third Eval Re-Evaluation Time: 18:05 Comment: Discussed with the pt's Fourth Eval Re-Evaluation Time: 18:16 Change: Improved Comment: Pt's pain has improved, but she continues to complain of abdominal pain. Fifth Eval Re-Evaluation Time: 19:10 Comment: Pt is hypotensive again. Complex Multi-Symp Course/Dx Assessment/Plan: Pt is a 72 y/o F BIBA who presents to ED c/o generalized weakness s/p chemotherapy treatment. Pt reports she had her third chemotherapy treatment 2 days ago and has been weak since then. Additionally c/o mild SOB, nonproductive cough, chills, nausea, constipation, abdominal distension and lower abdominal pain. Last BM was 2 days ago and has not been relieved with Dulcolax. Denies fever, vomiting. PMHx uterine CA which was operated on in March in [place] (2 months ago) and her third chemotherapy treatment was 2 days ago. Oncologist is Dr. Lewis. 1 mm elevation in the inferior leads with hypotension and nausea responding to fluids suggests inferior wall MA. STEMI called at 1752. CXR reveals potential free air under the RIGHT hemidiaphragm. CT Abd/Pel reveals SBO with full findings above. Discussed care of pt with Dr. Sherwood who reported it was alright for the pt to get a stent. Discussed care of pt with Dr. Sandoval at 1758 who reported he would come in to the ED to evaluate her. After evaluation, at 1905, Dr. Sandoval has decided not to do a cath. Discussed care of pt with Dr. Bah at 1913 who will evaluate the pt in the ED. Discussed care of pt with Dr. Imani Sherwood again at 1917, disclosing the results thus far and requesting an update in the morning. Discussed care of pt with Dr. Tiffanie Gu at 1921 who accepts pt for admission. Allergies noted. - Diagnoses Provider Diagnoses: SBO (small bowel obstruction), Bowel perforation During the Visit The Following Alert/Code Occurred: STEMI - 1752 - Physician Notifications Discussed Care Of Patient With: Imani Sherwood Time Discussed With Above Provider: 17:57 Instructed by Provider To: Other - Dr. Sherwood who reported it was alright for the pt to get a stent. Discussed care of pt with Dr. Sandoval at 1758 who reported he would come in to the ED to evaluate her. After evaluation, at 1905, Dr. Sandoval has decided not to do a cath. Discussed care of pt with Dr. Bah at 1913 who will evaluate the pt in the ED. Discussed care of pt with Dr. Imani Sherwood again at 1917, disclosing the results thus far and requesting an update in the morning. Discussed care of pt with Dr. Tiffanie Gu at 1922 who accepts pt for admission. - Critical Care Time Critical Care Time: 30-74 min - 45 minutes Discharge - Discharge Plan Condition: Critical Disposition: ADMITTED TO [facility] Referrals: Anny Melendrez MD [Primary Care Provider] - The documentation as recorded by the Ottoniel oden Rebecca accurately reflects the service I personally performed and the decisions made by me, Efrain Almeida MD.
--- NOTE | 2017-05-14 22:04 | HP ---
CC: Dr. Anny Melendrez; Dr. Korey [facility], [facility] * HISTORY AND PHYSICAL: DATE OF ADMISSION: 05/14/17 HISTORY OF PRESENT ILLNESS: I was contacted by the emergency room physician to evaluate Ms. Roy, a 72-year-old female, who presented to the emergency room with worsening abdominal pain. The patient describes onset of pain after a bowel movement. She did not have a bowel movement since then. It was recently after her last dose of chemotherapy, which took place on , 2 days ago, which she is receiving for uterine cancer. 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 She was for a planned robotic surgery that was abandoned given the extensive disease according to the patient and the patient's . Her postoperative course was complicated with a local wound infection, was treated with local care. She did undergo placement of an infusion port and has been on chemotherapy, Carbo and Taxol weekly since March. Today, the patient feels bloated. She has mid abdominal pain and lower abdominal pain. It is worse with movement. The patient denies previous similar symptoms. She has no appetite. The patient presented to the emergency room hypotensive with a concern of cardiac event, underwent EKGs and did respond to bolus fluids improving her blood pressure. She overall feels very weak. PAST MEDICAL HISTORY: Tachycardia, hypercholesterolemia and diverticulitis. PAST SURGICAL HISTORY: Spinal surgery remotely and then this laparoscopy in March as well as a PowerPort placement. CURRENT MEDICATIONS: Include acetaminophen and aspirin, atenolol, atorvastatin and the chemotherapy as described on a weekly basis. ALLERGIES: She is allergic to PRILOCAINE and EPINEPHRINE. She was also admitted and underwent antibiotics for the wound infection and there was a concern that the patient had worsening kidney function and this was considered to be something that she should not receive again, although it is on her allergy list. SOCIAL HISTORY: She lives with her . REVIEW OF SYSTEMS: No headache, no fevers or chills, fatigue and decreased appetite, hair loss and weight loss. Wound infection as described above successfully treated with chemotherapy. No bleeding or clotting disorder. No complication with anesthesia. PHYSICAL EXAMINATION GENERAL: She is alert and oriented x3. She is in mild distress lying on the stretcher. VITAL SIGNS: She is afebrile 97.6, blood pressure 117/56, heart rate of 89, respirations 20 on 2 L nasal cannula. Her O2 sat is in the mid 90s. HEENT: Normocephalic, atraumatic. Sclerae anicteric. Mucous membranes are dry. NECK: No lymphadenopathy. LUNGS: Decreased breath sounds bilaterally. ABDOMEN: Tense, distended, minimally tender on deep palpation, hypoactive bowel sounds. RECTAL: Not performed. VAGINAL EXAM: Not performed. EXTREMITIES: With mild edema. DIAGNOSTIC STUDIES/LAB DATA: Labs reviewed, showed a white count of 1.8, with absolute neutrophils of 1400. This is down from a white blood cell count of 5 just two days ago. H and H 10.6/33. INR normal and chemistry panel with a low albumin of 2.6, creatinine of 1.78. Lactate is pending. The patient had a troponin level, which was 0.1. The patient underwent a CAT scan of the abdomen and pelvis. These images were reviewed as well as the report. Shows hemidiaphragms, pneumatosis. It was done without oral or IV contrast. There is free fluid within the small bowel, decompressed colon, dilated stomach. IMPRESSION: A 72-year-old female with uterine cancer treated with chemotherapy as recently as 2 days ago, now with acute onset of abdominal pain and CAT scan findings consistent with perforation of bowel. My inclination is that this is possibly a small bowel lesion secondary to her primary disease. I feel this is less likely a perforated ulcer given the findings at this point. She does have a history of diverticulitis and perforated diverticulitis is also a potential. I feel the patient is critical and there is a very small chance of survival without any surgical intervention; however, with surgical intervention is a strong possibility given the patient's poor nutrition at this point. I did recommend laparotomy to see if we can diagnose and treat the cause of her abdominal pain and her sepsis criteria picture. She is willing. I spoke about the possible complications, which included, but not limited to bleeding, infection, inability to identify the lesions, possibility of remaining intubated and even . We talked about even prolonged hospitalization that also may end with . We spoke the possible alternatives of watchful waiting , n.p.o. status, NG tube and antibiotics staying a lot of time with that possibility. The patient states she would rather go to the operating room for the attempt to finding and treating a perforating lesion. I outlined the details of the procedure as well as the complications both to her and her . Their questions were answered. They realized that this is a critical situation and that she will most likely come out of the operating room intubated and will be sent to the ICU. NG tube was placed and it is still draining. We will also place Raines catheter. I would like to get a lactate level. The anesthesia team is coming in. [id number]/[facility] #: [id number] BRENDEN
--- NOTE | 2017-05-14 22:29 | CONS ---
INTERVENTIONAL CARDIOLOGY ER CONSULT NOTE: DATE OF CONSULT: 05/14/17 PRIMARY CARE PHYSICIAN: Dr. Riggins. COLLEGE BASKETBALL COACH: Dr. Maldonado. ONCOLOGIST: Dr. Lewis. HISTORY OF PRESENT ILLNESS: A 72-year-old woman with stage IV uterine cancer presented to the ER with abdominal pain, nausea and vomiting. A STEMI was called because of suspicious EKG for inferior ST elevation. She had a catheterization on 10/05/14 for palpitations and weakness, troponin elevation to a peak of 1.4 revealed left dominant circulation with an infrabasilar wall motion abnormality without significant obstructive coronary artery disease, diagonal branch had less than 50% stenosis. The circumflex was dominant without disease. EKG then showed lateral precordial J-point depression with upsloping ST segments. She subsequently has been found to have stage IV cancer of the uterus, has been getting chemo, and has had recurring abdominal infections. Since Tuesday, she has been feeling poorly, she has had abdominal pain and distension, but absolutely no chest pain, shortness of breath or palpitations. PAST MEDICAL HISTORY: Notable for hypertension. ALLERGIES: None. SOCIAL HISTORY: She is a nonsmoker. She is . REVIEW OF SYSTEMS: Notable for weakness, while she has been on chemo. PHYSICAL EXAM: She has absolutely no chest pain. She does have abdominal pain with a distended abdomen, which is very painful and tender. She does not have rebound. Her BP on arrival 90/61, heart rate 114, sinus tachycardia. She has no rales laterally. JVP is not elevated with her supine. Cardiac exam is unremarkable without gallop, murmur, or rub. Abdomen: She does have very faint bowel sounds, belly is very distended, tympanitic. She has right-sided tenderness more than left. Radial and pedal pulses are palpable. She has no edema. EKG shows sinus tachycardia, 103 with TN segment depression in the inferior leads and lateral precordial leads without ST segment elevation relative to the TP segment at 1731 hours. EKG at 1743 again shows TN segment depression without clear ST elevation relative to the TP segment in the inferior leads. EKG at 1800 with a heart rate of 97 shows slightly less TN segment depression and again no ST elevation. Her first troponin is normal. Her chest x-ray shows free air under the right hemidiaphragm. Reported CT scan is pending. White count today is low at 1.8 with a hemoglobin of 10.6, hematocrit 33, platelet count 139,000. BMP shows creatinine elevation to 1.78, was 1.03 on . BNP is 157. IMPRESSION AND PLAN: "Possible ST elevation infarct". Her EKG does not show ST elevation relative to the TP segment. She has not had any chest pain. She had no significant obstructive coronary artery disease at cath in 2015. Her first troponin is negative, she has been symptomatic since yesterday evening with abdominal pain. She has free air under the right hemidiaphragm. I think the likelihood of acute coronary syndrome with an acute infarct or non-ST elevation infarct is quite low, the TN segment depression is consistent with an intraabdominal process. I see no indication for emergent catheterization presently. In the unlikely event that she develops evidence of acute coronary syndrome, we will deal with it as it develops, but my suspicion for an acute coronary syndrome is very low. I have reviewed this with her and her as well as the ER staff. We are available for reevaluation if required. [id number]/[facility] #: [id number] MTDD
--- NOTE | 2017-05-14 23:38 | BRIEFOPN ---
Brief Operative Note - Surgery Procedures: Procedures Pre-OP Diagnoses: acuta abdomen Post-op Diagnosis: perforated small bowel Procedure: Exploratory laparotomy, abdominal washout, oversew of small bowel perforation Surgeon: Niurka Silvat: Mary Anethesia: NINO Rivas EBL: <100cc IVF: 1700cc crystalloid 500cc hetastarch Specimen: none Drains: none wound packed open, retention sutures.
[2017-05-15] MEDS ORDERED: Propofol* 100 ML ONE (00:02)
[2017-05-15] MEDS: Piperacillin/Tazobactam VIAL*) 3.375 GM in NS 0.9% 100 ML* 100 ML IVPB SCH ×3 (01:23→17:21)
[2017-05-15] MEDS: Propofol* 100 ML IV SCH ×2 (01:49→11:19)
[2017-05-15 05:04] LABS: Urine Appearance Cloudy; Urine Blood 1+ (Negative); Urine Color Amber; Urine Ketones Trace (Negative); Urine Protein 2+(100 mg/dL) (Negative); Urine Specific Gravity 1.027 (1.010-1.030); Urine Urobilinogen Negative (Negative)
[2017-05-15] MEDS: Heparin VIAL(*) 5000 UNITS/ML VIAL (FIVE THOUSAND) SUBCUT SCH ×3 (05:39→22:09)
[2017-05-15 06:16] LABS: EGFR Non-African American 40.5 (>60)
[2017-05-15 06:42] LABS: ABS Basophils 0 10^3/ul (0-0.2); ABS Eosinophils 0 10^3/ul (0-0.6); ABS Lymphocytes 0.2 10^3/ul (1.0-4.8); ABS Monocytes 0 10^3/ul (0-0.8); ABS Neutrophils 0.7 10^3/ul (1.5-7.7); ABS Nucleated RBC 0 10^3/ul; Eosinophil % 0.7 % (0-6); Hematocrit 25 % (35-47); Hemoglobin 8.4 g/dl (12.0-16.0); Lymphocyte % 23.1 % (25-47); Mean Corpuscular HGB Conc 34 g/dl (31-36); Mean Corpuscular Hemoglobin 26 pg (27-31); Mean Corpuscular Volume 76 fL (80-97); Mean Platelet Volume 9 um3 (7.4-10.4); Nucleated Red Blood Cells % 0.1; Platelet Count 60 10^3/ul (150-450); Red Blood Count 3.26 10^6/ul (4.0-5.4); Red Cell Distribution Width 26 % (10.5-15)
--- NOTE | 2017-05-15 08:00 | PN ---
Progress Note - Progress Note Date of Service: 05/15/17 SOAP: Subjective: 72 yo F w stage IV endometrial CA who presented in February with a malignant pleural effusion. sp attempted resection at [facility] (apparently aborted 2/2 bulk of disease). This was complicated by abdominal wound infections with klebsiella requiring IV antibiotics. She is now sp 3 cycles of carboplatin/ paclitaxel, most recently this in our office. Her CA 125 has decreased from ~970-->139. She has suffered from constipation and called yesterday with chills and constipation. We tried increasing her regimen over the phone but I advised her to bring her to the ER should she worsen. He was initially hesitant because of the amount of flu in the hospital. She deteriorated with worsening pain and so he brought her to the ER. She was hypotensive on presentation with questionable EKG changes and initially felt to have an LA, however this was felt less likely by Dr. Sandoval. Abdominal CT showed a marked small bowel obstruction with pneumoperitoneum and she was taken urgently to the ER for repair and wash out. She is currently intubated and lightly sedated in the ICU. Her WBC is 1.0 and her platelets are 60k. Objective: Vital Signs Temp Pulse Resp BP Pulse Ox 99.3 F 80 24 96/51 99 05/15/17 07:30 05/15/17 06:00 05/15/17 05:18 05/15/17 05:00 05/15/17 06:00 perr eomi op-ngt with dark drainage CTA anteriorly s1 s2 nl somewhat firm abdomen, midline dressing clean and intact w packing no le edema arousable, sedated, follows simple commands Laboratory Results - last 24 hr 05/14/17 05/14/17 05/14/17 17:58 17:58 17:58 WBC 1.8 L RBC 4.16 Hgb 10.6 L Hct 33 L MCV 78 L MCH 26 L MCHC 33 RDW 26 H Plt Count 139 L MPV 9 Neut % (Auto) 76.3 Lymph % (Auto) 20.7 L [place] % (Auto) 2.6 Eos % (Auto) 0.1 Baso % (Auto) 0.3 Absolute Neuts (auto) 1.4 L Absolute Lymphs (auto) 0.4 L Absolute Monos (auto) 0 Absolute Eos (auto) 0 Absolute Basos (auto) 0 Absolute Nucleated RBC 0 Nucleated RBC % 0.5 Hypochromasia Anisocytosis Elliptocytes INR (Anticoag Therapy) APTT Sodium 133 Potassium 3.7 Chloride 99 L Carbon Dioxide 20 L Anion Gap 14 H BUN 49 H Creatinine 1.78 H Est GFR ( Amer) 35.9 Est GFR (Non-Af Amer) 27.9 BUN/Creatinine Ratio 27.5 H Glucose 152 H Lactic Acid Calcium 7.9 L Total Bilirubin 0.70 AST 20 ALT 20 Alkaline Phosphatase 37 Total Creatine Kinase 16 CK-MB (CK-2) 0.7 Myoglobin 191.9 H Troponin I 0.01 C-Reactive Protein B-Natriuretic Peptide 157 H Total Protein 4.5 L Albumin 2.6 L Globulin 1.9 L Albumin/Globulin Ratio 1.4 Urine Color Urine Appearance Urine pH Ur Specific [place] Urine Protein Urine Ketones Urine Blood Urine Nitrate Urine Bilirubin Urine Urobilinogen Ur Leukocyte Esterase Urine WBC (Auto) Urine RBC (Auto) Ur Squamous Epith Cells Ur Transition Epith Cell Urine Bacteria Urine Glucose Blood Type Antibody Screen 05/14/17 05/14/17 05/14/17 17:58 17:58 20:35 WBC RBC Hgb Hct MCV MCH MCHC RDW Plt Count MPV Neut % (Auto) Lymph % (Auto) [place] % (Auto) Eos % (Auto) Baso % (Auto) Absolute Neuts (auto) Absolute Lymphs (auto) Absolute Monos (auto) Absolute Eos (auto) Absolute Basos (auto) Absolute Nucleated RBC Nucleated RBC % Hypochromasia Anisocytosis Elliptocytes INR (Anticoag Therapy) 1.08 H APTT 24.1 L Sodium Potassium Chloride Carbon Dioxide Anion Gap BUN Creatinine Est GFR ( Amer) Est GFR (Non-Af Amer) BUN/Creatinine Ratio Glucose Lactic Acid 4.1 H* Calcium Total Bilirubin AST ALT Alkaline Phosphatase Total Creatine Kinase CK-MB (CK-2) Myoglobin Troponin I C-Reactive Protein B-Natriuretic Peptide Total Protein Albumin Globulin Albumin/Globulin Ratio Urine Color Urine Appearance Urine pH Ur Specific [place] Urine Protein Urine Ketones Urine Blood Urine Nitrate Urine Bilirubin Urine Urobilinogen Ur Leukocyte Esterase Urine WBC (Auto) Urine RBC (Auto) Ur Squamous Epith Cells Ur Transition Epith Cell Urine Bacteria Urine Glucose Blood Type A Positive Antibody Screen Negative 02/11/18 02/11/18 02/11/18 00:32 05:45 05:45 WBC 1.0 L RBC 3.26 L Hgb 8.4 L Hct 25 L MCV 76 L MCH 26 L MCHC 34 RDW 26 H Plt Count 60 L D MPV 9 Neut % (Auto) 73.2 Lymph % (Auto) 23.1 L [place] % (Auto) 2.9 Eos % (Auto) 0.7 Baso % (Auto) 0.1 Absolute Neuts (auto) 0.7 L* Absolute Lymphs (auto) 0.2 L Absolute Monos (auto) 0 Absolute Eos (auto) 0 Absolute Basos (auto) 0 Absolute Nucleated RBC 0 Nucleated RBC % 0.1 Hypochromasia 1+ Anisocytosis 2+ Elliptocytes 1+ INR (Anticoag Therapy) APTT Sodium 133 Potassium 4.6 Chloride 107 Carbon Dioxide 18 L Anion Gap 8 BUN 46 H Creatinine 1.29 H Est GFR ( Amer) 52.1 Est GFR (Non-Af Amer) 40.5 BUN/Creatinine Ratio 35.7 H Glucose 89 Lactic Acid Calcium 5.9 L* Total Bilirubin 0.80 AST 28 ALT 17 Alkaline Phosphatase 17 L Total Creatine Kinase CK-MB (CK-2) Myoglobin Troponin I C-Reactive Protein 177.40 H B-Natriuretic Peptide Total Protein < 3.0 L Albumin < 1.3 L Globulin 1.7 L Albumin/Globulin Ratio 0.8 L Urine Color [place] Urine Appearance Cloudy Urine pH 5.0 Ur Specific [place] 1.027 Urine Protein 2+(100 mg/dl) H Urine Ketones Trace H Urine Blood 1+ H Urine Nitrate Negative Urine Bilirubin Negative Urine Urobilinogen Negative Ur Leukocyte Esterase Negative Urine WBC (Auto) 3+(>20/hpf) H Urine RBC (Auto) 3+(>10/hpf) H Ur Squamous Epith Cells Present H Ur Transition Epith Cell Present H Urine Bacteria Absent Urine Glucose 1+(50 mg/dl) H Blood Type Antibody Screen 05/15/17 05:45 WBC RBC Hgb Hct MCV MCH MCHC RDW Plt Count MPV Neut % (Auto) Lymph % (Auto) [place] % (Auto) Eos % (Auto) Baso % (Auto) Absolute Neuts (auto) Absolute Lymphs (auto) Absolute Monos (auto) Absolute Eos (auto) Absolute Basos (auto) Absolute Nucleated RBC Nucleated RBC % Hypochromasia Anisocytosis Elliptocytes INR (Anticoag Therapy) APTT Sodium Potassium Chloride Carbon Dioxide Anion Gap BUN Creatinine Est GFR ( Amer) Est GFR (Non-Af Amer) BUN/Creatinine Ratio Glucose Lactic Acid 4.2 H* Calcium Total Bilirubin AST ALT Alkaline Phosphatase Total Creatine Kinase CK-MB (CK-2) Myoglobin Troponin I C-Reactive Protein B-Natriuretic Peptide Total Protein Albumin Globulin Albumin/Globulin Ratio Urine Color Urine Appearance Urine pH Ur Specific [place] Urine Protein Urine Ketones Urine Blood Urine Nitrate Urine Bilirubin Urine Urobilinogen Ur Leukocyte Esterase Urine WBC (Auto) Urine RBC (Auto) Ur Squamous Epith Cells Ur Transition Epith Cell Urine Bacteria Urine Glucose Blood Type Antibody Screen Filgrastim-Sndz (Zarxio*) 480 mcg SUBCUT DAILY [facility] Heparin Sodium (Porcine) (Heparin Vial(*)) 5,000 units SUBCUT Q8HR [facility] Last Admin: 05/15/17 05:39 Dose: 5,000 units Piperacillin Sod/Tazobactam (Sod 3.375 gm/ Sodium Chloride) 100 mls @ 25 mls/ hr IVPB Q8H [facility] Last Admin: 05/15/17 01:23 Dose: 25 mls/hr Lactated Ringer's (Lactated Ringers 1000 Ml Bag*) 1,000 mls @ 0 mls/hr IV WIDE OPEN [place] PRN Reason: Wide Open Stop: 05/15/17 23:59 Last Admin: 05/15/17 01:48 Dose: 999 mls/hr Propofol (Diprivan*) 100 mls @ 7.294 mls/hr IV .(Initial Rate) [place]; 20 MCG/KG/ MIN PRN Reason: Protocol Last Admin: 05/15/17 01:49 Dose: 4.1 mls/hr Lactated Ringer's (Lactated Ringers 1000 Ml Bag*) 1,000 mls @ 150 mls/hr IV .per rate [facility] Last Admin: 05/15/17 01:10 Dose: 150 mls/hr Lactated Ringer's (Lactated Ringers 1000 Ml Bag*) 1,000 mls @ 0 mls/hr IV WIDE OPEN [place] PRN Reason: Wide Open Stop: 05/15/17 23:59 Last Admin: 05/15/17 01:49 Dose: 999 mls/hr Assessment: 72 yo F w advanced uterine CA on palliative carbo/taxol, with good response serologically, presenting with a small bowel obstruction and perforation. She is pancytopenic at this time, which I suspect is driven by sepsis/DIC, and not chemo as the timing is too early. Plan: -check DIC panel, if fibrinogen <100 can add cryo -add neupogen, may have small benefit as she will continue to fall from chemo + sepsis -transfuse platelets if <50 and bleeding OR need to go back to OR -hold heparin if plts <50k -cont broad spectrum abx
--- NOTE | 2017-05-15 09:25 | PN ---
Progress Note - Progress Note Date of Service: 05/15/17 SOAP: Subjective: Pt seen and examined. Remains intubated, sedated. UO fair. Follows simple commands. at bedside. Objective: af Hr 100, MAP 60-70s on 30% O2 abdo: soft/ distended/ tender will change packing later today labs noted Assessment: POD0 ex lap, washout, repair of SB perforation. pancytopenic. malnutrition, sepsis condition critical Plan: wean to extubate. cont NGT OOB to chair if possible wound care No plans for return to OR, this was discussed with pt's . Pt's condition and labs discussed as well. Parenteric nutrition abx
[2017-05-15] MEDS: FILGRASTIM-SNDZ* 480 MCG/0.8 ML SYRINGE SUBCUT SCH (09:41)
[2017-05-15] MEDS ORDERED: Albumin Human 5%* 250 GM/250 ML BTL IV ONE ×2 (10:34)
[2017-05-15] MEDS ORDERED: Fluconazole 400 MG IVPREMIX(*) 400 MG/200 ML BAG IVPB ONE (11:00)
[2017-05-15] MEDS: NS 0.9% 1000 ML* 2,000 ML IV ONE (11:35)
--- NOTE | 2017-05-15 12:06 | CONSULT ---
Consult Consult: CRITICAL CARE MEDICINE DATE: 05/15/17 TIME: 1115 PRIMARY ONC PROVIDER: Joshua REFERRING PROVIDER: Niurka REASON/CHIEF COMPLAINT: post ex lap and post op resp failure HISTORY OF PRESENT ILLNESS: 72 F with h/o stage IV endometrial CA since Feb 2017 s/p 3rd cycle chemo 05/12 (carboplatin/paclitaxel). Became weaker since tx and then abd discomfort presenting to ED; ECG changes and cards eval stable with her history and pneumoperitoneum noted with sbo and taken for ex lap requiring oversew of small bowel perf. No resection. Facscia closed but skin open and packed. No return OR plans. about 5.5L in total overnight. EBL <100ml. REVIEW OF SYSTEMS: As per HPI. Limited sec to acuity. PAST MEDICAL HISTORY: As per HPI. tachycardia on atenolol; lipids on atorvastatin; asa. tylenol. MEDICATIONS: Reviewed as above. ALLERGIES: Reviewed. unclear reaction SOCIAL HISTORY: Reviewed. FAMILY HISTORY: Noncontributory at present. PHYSICAL EXAM: Vital Signs: Reviewed. Hr 100s. BP ok with sbp ~80 to 100s. Neurologic: sedate with prop. overbreathing. actually working a little this am on vent. grimace to pain. HEENT: perrl; mm dry; 7.0 ett Cardiovascular: distant, tachy, S1, S2, no m Respiratory: rhonchi on Right and inc wob and nasal flare with MV ~12-15lpm. 30% . APV Abdomen: distended some. mild fluid. dressing in place. wound pink. Extremities: left femoral arnulfo. 2+ edema Access: R sided port. piv LABS: Reviewed. IMAGING: Reviewed. MEDICATIONS: Reviewed. ASSESSMENT: 72 F SBO and perf viscous Severe sepsis to septic shock from this Post op resp failure Lactic acidosis on admission Acute renal failure on admission Severe malnutrition Anemia of chronic dz Stage IV endometrial CA Pancytopenia post chemo PLAN: Neurologic: low dose propofol. 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 hold prop tomorrow am. Cardiovascular: Perfusing but high CO demands given her metabolic curves. Intravascular still deplete. Bolus and utilize colloids today to see if we can avoid a lot of extra bowel/interstitial edema; although I'd rather use fluids to see if she can equilibrate vs vasopressors at this point in order to protect the splanchnics, but may need levophed if not equilibrating with fluid. Also follow for relative adrenal insuff and consider steroid needs early. of atenolol. Respiratory: adjusted to aprv and see if we can achieve better alveolar recruitment and dec mv needs. needs cxr to check dyanmics as prefer to leave her with ventilatory support given multiple organ disturbances, ongoing LA, metabolic demands fluid shifts in Ebb phase still and ventilatory needs. Gastrointestinal: ngt. sup. surgcal f/u for dressing needs. hold on tpn currently given her acute inflammation but may be ready to start tomorrow given her anticipated needs. likely need a picc for needs. Renal/Metabolic: radha better post fluids but maintain perfusion; meet colloid needs. f/u lytes and la clearance. hold off on LR not to confound clearance. Infectious Disease: on zosyn continued. given risk factors, perf sb, pancytopenia and need for tpn; place her on a course of diflucan empirically. If cx revealing yeast at all then would empirically escalate. Hematology: onc following. neupogen added. fibrinogen ok and up with acute phase. plt likely to drop further and can look to hold chemical vte prophylaxis as needed. f/u Hb and can maintain >7. Endocrine: may need empiric stress steroids if poor fluid response. Musculoskeletal: bedrest today. f/u skin /wound needs. Psych/Social: at bedside, seems to grasp a good understanding. Supportive and preventative care as ordered. SUP: ppi VTE prophylaxis: heparin Raines catheter given critical illness, monitoring needs for accurate assessment of RADHA and KDIGO criteria for critically ill patients and to avoid potential harms of urinary retention, skin breakdown/ulcers. Disposition: ICU Code Status: Full presently Critical Care Time: 45min D/w Dr. Niurka Kat,
[2017-05-15] MEDS: fentaNYL PCA* 20 ML PCA SCH (12:08)
--- NOTE | 2017-05-15 12:51 | RAD ---
Indication: Postop following laparotomy due to bowel perforation. Metastatic gynecologic malignancy. Comparison: CT abdomen and chest radiograph of one day prior. Technique: Semiupright portable AP chest 1155 hours Report: Tip of RIGHT chest port at level of RIGHT atrium. Tip of nasogastric tube at level of gastric body approximating the greater curvature. Tip of endotracheal tube 4.4 cm above the mekhi. Small dependent RIGHT pleural effusion and basilar atelectasis. Negative for pneumothorax. The heart, pulmonary vasculature, and mediastinal contours are unremarkable. No conspicuous free air under the diaphragm. IMPRESSION: No significant change in small RIGHT pleural effusion and basilar atelectasis compared with the CT of one day prior. Tubes and lines as described.
--- NOTE | 2017-05-15 13:12 | PN ---
Progress Note - Progress Note Date of Service: 05/15/17 Note: CRITICAL CARE MEDICINE PROCEDURE NOTE DATE: 05/15/17 TIME: 1245 SERVICE: Critical Care Medicine LOCATION OF PROCEDURE: ICU PROCEDURE: Central line insertion. PROCEDURALIST: Dr. Kat Consent obtain: Yes, consent signed by . Time out held: Yes INDICATION: Acute respiratory failure and perforated viscous s/p ex lap with poor IV access, needing multiple iv meds and ultimately tpn PROCEDURE: Oxygenation maintained and vitals monitored. Patient in trendelenberg position. SITE: RIGHT Internal jugular. Site preparation with chlorhexidine locally. Full sterile drape, gown, hat, mask, gloves. 5ml 1% Lidocaine utilized at incision site. Standard sterile Seldinger technique utilized via ultrasound guidance and catheter was inserted to 17cm and sutured in place. Good blood return. Minimal blood loss. Site dressed with tegaderm. Portable chest x-ray pending. Patient otherwise tolerated well. Bambi Kat,
[2017-05-15] MEDS: Pantoprazole IV* 40 MG IV SCH (13:58)
--- NOTE | 2017-05-15 14:15 | RAD ---
Indication: Postop following laparotomy for bowel perforation. Comparison: 1155 hours chest radiograph of the same date and CT abdomen of one day prior. Technique: Upright AP 1320 hours Report: RIGHT side chest port catheter remains at the level of the RIGHT atrium. Tip of newly placed RIGHT IJ central venous catheter is at the level of the proximal RIGHT brachiocephalic vein directed central. Endotracheal tube tip 3.7 cm above the Judi. Nasogastric tube tip at level of the gastric body. Unchanged small dependent RIGHT pleural effusion and basilar atelectasis. Negative for pneumothorax. Negative for cardiomegaly. Unremarkable central pulmonary vasculature. No conspicuous free air evident beneath the diaphragm. IMPRESSION: Tip of newly placed RIGHT IJ central venous catheter is at the level of the proximal RIGHT brachiocephalic vein directed central. Negative for pneumothorax.
[2017-05-15 15:56] LABS: EGFR Non-African American 30.9 (>60)
[2017-05-15] MEDS ORDERED: Acetaminophen SUPP* 650 MG SUPP PR ONE (16:50)
[2017-05-15] MEDS ORDERED: Acetaminophen SUPP* 650 MG SUPP ONE (16:52)
[2017-05-15] MEDS: Chlorhexidine MOUTHWASH 0.12%* 15 ML UDC SCH ×3 (17:21→22:09)
[2017-05-15] MEDS: Albumin Human 25%* 25 GM/100 ML BTL IV SCH (18:34)
[2017-05-16] MEDS: Piperacillin/Tazobactam VIAL*) 3.375 GM in NS 0.9% 100 ML* 100 ML IVPB SCH ×3 (02:33→22:00)
[2017-05-16] MEDS: Albumin Human 25%* 25 GM/100 ML BTL IV SCH ×2 (02:33→06:32)
[2017-05-16] MEDS: Chlorhexidine MOUTHWASH 0.12%* 15 ML UDC SCH ×6 (03:05→22:00)
[2017-05-16] MEDS: Propofol* 100 ML IV SCH ×2 (03:06→14:56)
[2017-05-16] MEDS: Heparin VIAL(*) 5000 UNITS/ML VIAL (FIVE THOUSAND) SUBCUT SCH ×2 (06:30→07:35)
[2017-05-16 07:02] LABS: Hematocrit 16 % (35-47); Hemoglobin 5.6 g/dl (12.0-16.0); Mean Corpuscular HGB Conc 34 g/dl (31-36); Mean Corpuscular Hemoglobin 26 pg (27-31); Mean Corpuscular Volume 77 fL (80-97); Mean Platelet Volume 10 um3 (7.4-10.4); Platelet Count 33 10^3/ul (150-450); Red Blood Count 2.15 10^6/ul (4.0-5.4); Red Cell Distribution Width 27 % (10.5-15); White Blood Count 1.1 10^3/ul (3.5-10.8)
[2017-05-16 07:20] LABS: EGFR Non-African American 20.4 (>60)
[2017-05-16] MEDS ORDERED: Calcium Gluconate INJ* 2 GM in NS 0.9% 100 ML* 100 ML IV ONE ×2 (08:00→18:19)
--- NOTE | 2017-05-16 08:30 | PN ---
Progress Note - Progress Note Date of Service: 05/16/17 Note: [facility] Progress Note Awake, alert Calm and cooperative Follows simple commands Responds to questions with nods of head and gestures of face and hands Denies pain, denies nausea SBP 118 MAP 70-80 HR 78-90 regular Temp to 100.8 FiO2 30 SpO2 99-100 EtCO2 27 Skin no diaphoresis, no cyanosis Sclerae anicteric, Pupils equal NGT in place Oral ETT, oral mucosa pink Neck with Rt IJ TLC Lungs with good air entry bilat, no wheezes Cor RRR no rub, no murmur Abd soft distension, dressing intact, (+)BS cervantes Ext min edema, (+)SCDs, Lt Fem A-line, RUE with PIV WBC 1.1 Hgb 5.6 Plt 33 pH(v) 7.31 ScvO2 69.8 Lact 3.7 Ca(i) 3.2 Ca(tot) 6.0 Pi 5.2 BUN/Creat 58/2.3 K 5.0 Bili 1.9 AST 267 ALT 253 IMP: Septic Shock due to Peritonitis with perforated small bowel as consequence of SBO Respiratory Failure Lactic Acidosis Critical Anemia Neutropenia Thrombocytopenia Acute Kidney Injury Hx Advanced Stage Endometrial Ca Moderate Protein Calorie Malnutrition Mild Shock Liver with mild cholestasis Hypocalcemia PLAN/REC: Continue full MV support today Transfuse 2 units PRBC Transfuse Plts as needed Continue Filgastrim Continue empiric Zosyn and Diflucan Replete Ca Update H/H, Ca, Lactate later today Keep HOB raised Suctioning PRN DVT prophyl Acid Peptic Supp Update CXR in AM Discussed with Dr Bah this AM Discussed with Nurse Turned Propofol off this AM and explained to patient need for transfusion to which she subsequently consented....form signed by patient herself in presence of nurses T>35 min, [facility] services rendered
[2017-05-16] MEDS: FILGRASTIM-SNDZ* 480 MCG/0.8 ML SYRINGE SUBCUT SCH (10:09)
--- NOTE | 2017-05-16 10:22 | PN ---
Progress Note - Progress Note Date of Service: 05/16/17
--- NOTE | 2017-05-16 10:41 | PN ---
Progress Note - Progress Note Date of Service: 05/16/17 SOAP: Subjective: []symptoms started on after chemotherapy and continued to enucleate until called ambulance on Tuesday. Free air and perforation, to surgery. Bowl resection and perforation of small bowl removed. Today on ventilator but responding to questions. Denies pain. No distress. Chlorhexidine Gluconate (Peridex Mouth Wash 0.12%*) 15 ml .SEE ORDER Q4H [facility] Last Admin: 05/16/17 06:30 Dose: 15 ml Filgrastim-Sndz (Zarxio*) 480 mcg SUBCUT DAILY [place] Last Admin: 05/16/17 10:09 Dose: 480 mcg Heparin Sodium (Porcine) (Heparin Vial(*)) 5,000 units SUBCUT Q8HR [facility] Last Admin: 05/16/17 07:35 Dose: Not Given Piperacillin Sod/Tazobactam (Sod 3.375 gm/ Sodium Chloride) 100 mls @ 25 mls/ hr IVPB Q8H [facility] Last Admin: 05/16/17 10:15 Dose: 25 mls/hr Propofol (Diprivan*) 100 mls @ 7.294 mls/hr IV .(Initial Rate) [place]; 20 MCG/KG/ MIN PRN Reason: Protocol Last Admin: 05/16/17 03:06 Dose: 7.294 mls/hr Sodium Chloride (Ns 0.9% 1000 Ml*) 1,000 mls @ 75 mls/hr IV PER RATE [facility] Fentanyl Citrate (Fentanyl Member Service Specialist*) 20 mls @ 0 mls/hr CHEMICAL ANALYTICAL SAMPLER .change Q24H [place]; Per Protocol PRN Reason: Protocol Last Admin: 05/15/17 12:08 Dose: 0.5 mls/hr Fluconazole/Sodium Chloride (Diflucan 200 Mg Ivpremix(*)) 200 mg in 100 mls @ 100 mls/hr IVPB Q24H [place] Pantoprazole Sodium (Protonix Iv*) 40 mg IV Q24H [facility] Last Admin: 05/15/17 13:58 Dose: 40 mg Objective: [] Vital Signs Temp Pulse Resp BP Pulse Ox 99.5 F 78 12 101/57 100 05/16/17 07:41 05/16/17 10:01 05/16/17 10:00 05/16/17 10:00 05/16/17 10:01 On ventilator, not on pressers. HEENT - ET tube, dark drainage from NGT. Vent, no wheezing. RRR S1S2 Abd - Open incision, has BS. Laboratory Results - last 24 hr 05/14/17 05/15/17 05/15/17 17:58 15:28 15:28 WBC RBC Hgb Hct MCV MCH MCHC RDW Plt Count MPV Neut % (Auto) Lymph % (Auto) [place] % (Auto) Eos % (Auto) Baso % (Auto) Absolute Neuts (auto) Absolute Lymphs (auto) Absolute Monos (auto) Absolute Eos (auto) Absolute Basos (auto) Absolute Nucleated RBC Immature Gran % Neutrophils % Band Neutrophils % Lymphocytes % Metamyelocytes % Myelocytes % Nucleated RBC % Abs Neuts (Manual) Normal RBC Morphology Anisocytosis Elliptocytes VBG pH VBG pCO2 VBG pO2 VBG HCO3 VBG O2 Saturation VBG Base Excess Sodium 135 Potassium 4.9 Chloride 108 Carbon Dioxide 17 L Anion Gap 10 BUN 46 H Creatinine 1.63 H Est GFR ( Amer) 39.8 Est GFR (Non-Af Amer) 30.9 BUN/Creatinine Ratio 28.2 H Glucose 72 Lactic Acid 3.7 H* Calcium 5.7 L* Ionized Calcium Phosphorus Magnesium Total Bilirubin AST ALT Alkaline Phosphatase Total Protein Albumin Globulin Albumin/Globulin Ratio Blood Type A Positive Antibody Screen Negative Crossmatch See Detail 05/15/17 05/16/17 05/16/17 15:28 06:27 06:27 WBC 1.1 L RBC 2.15 L Hgb 5.6 L* Hct 16 L MCV 77 L MCH 26 L MCHC 34 RDW 27 H Plt Count 33 L MPV 10 Neut % (Auto) Not Reportable Lymph % (Auto) Not Reportable [place] % (Auto) Not Reportable Eos % (Auto) Not Reportable Baso % (Auto) Not Reportable Absolute Neuts (auto) Not Reportable Absolute Lymphs (auto) Not Reportable Absolute Monos (auto) Not Reportable Absolute Eos (auto) Not Reportable Absolute Basos (auto) Not Reportable Absolute Nucleated RBC Not Reportable Immature Gran % 27 H Neutrophils % 62 Band Neutrophils % 9 H Lymphocytes % 11 L Metamyelocytes % 9 H Myelocytes % 9 H Nucleated RBC % Not Reportable Abs Neuts (Manual) 0.7 L* Normal RBC Morphology Not Reportable Anisocytosis 1+ Elliptocytes 1+ VBG pH 7.31 L VBG pCO2 34 L VBG pO2 36 VBG HCO3 18.0 L VBG O2 Saturation 69.8 L VBG Base Excess -8.4 L Sodium 135 Potassium 5.0 Chloride 107 Carbon Dioxide 19 L Anion Gap 9 BUN 58 H Creatinine 2.34 H Est GFR ( Amer) 26.2 Est GFR (Non-Af Amer) 20.4 BUN/Creatinine Ratio 24.8 H Glucose 87 Lactic Acid Calcium 6.0 L* Ionized Calcium Phosphorus 5.2 H Magnesium 1.4 L Total Bilirubin 1.90 H AST 267 H ALT 253 H Alkaline Phosphatase 17 L Total Protein 3.9 L Albumin 2.5 L Globulin 1.4 L Albumin/Globulin Ratio 1.8 Blood Type Antibody Screen Crossmatch 05/16/17 06:27 WBC RBC Hgb Hct MCV MCH MCHC RDW Plt Count MPV Neut % (Auto) Lymph % (Auto) [place] % (Auto) Eos % (Auto) Baso % (Auto) Absolute Neuts (auto) Absolute Lymphs (auto) Absolute Monos (auto) Absolute Eos (auto) Absolute Basos (auto) Absolute Nucleated RBC Immature Gran % Neutrophils % Band Neutrophils % Lymphocytes % Metamyelocytes % Myelocytes % Nucleated RBC % Abs Neuts (Manual) Normal RBC Morphology Anisocytosis Elliptocytes VBG pH VBG pCO2 VBG pO2 VBG HCO3 VBG O2 Saturation VBG Base Excess Sodium Potassium Chloride Carbon Dioxide Anion Gap BUN Creatinine Est GFR ( Amer) Est GFR (Non-Af Amer) BUN/Creatinine Ratio Glucose Lactic Acid Calcium Ionized Calcium 3.24 L Phosphorus Magnesium Total Bilirubin AST ALT Alkaline Phosphatase Total Protein Albumin Globulin Albumin/Globulin Ratio Blood Type Antibody Screen Crossmatch Assessment: []72 year old with metastatic endometrial cancer, advanced and aggressive disease. On first line palliative chemotherapy. Now presents with SBO. Differential includes bowl perforation from peritoneal based disease, prior bowl injury during diagnostic laparoscopy, she was constipated could have had distension and perforation, ulcer possible. Plan: []1. Has had surgery and has open wound. Will discuss with Dr. Bah. 2. Hgb dropping. Post operative oozing, gastric bleed. - Tx 2 U PRBC and re-check CBC - On IV PPI - Can check gastric guiac if does not respond to packed cells 3. On ventilator and stable, will wean when physiologically stable. 4. Sepsis. She is on antibiotics, lactic acid remains elevated, a-feb. Has not needed pressers. 5. Renal Failure. Will follow and not sure if she will recover. 7. Panctopenia from chemotherapy and infection. Continue Neupogen and tx as needed. 6. Her overall prognosis is poor. Discussed with and he is in favor of limits on care: no HD, no CPR and not re-intubating once extubated. He will be in later today or tomorrow. face time 45 min, patient and chart.
[2017-05-16] MEDS: Fluconazole 200 MG IVPREMIX(*) 200 MG/100 ML BAG IVPB SCH (12:29)
[2017-05-16] MEDS: Pantoprazole IV* 40 MG IV SCH (12:52)
[2017-05-16] MEDS: NS 0.9% 1000 ML* 1,000 ML IV SCH (14:02)
--- NOTE | 2017-05-16 17:00 | PN ---
Progress Note - Progress Note Date of Service: 05/16/17 SOAP: Subjective: Pt seen and examined earlier today. remoains intubated, minimal sedation. answers questions with nods. appears confortable on fentanyl gtt. Objective: tm 101, HR 80s, SBP improved. UO fair NGT: 1000/24hrs central line intact Abdo: soft/ distended/ midline incision with some serous drainage. Abdominal wall edema labs noted Assessment: POD2 ex lap, critically ill, pancytopenia, ARF, hemodynics okay Plan: transfuse per Hematology TPN, NGT Abx supportive care.
[2017-05-16 18:17] LABS: Hematocrit 23 % (35-47); Hemoglobin 7.8 g/dl (12.0-16.0); Mean Corpuscular HGB Conc 34 g/dl (31-36); Mean Corpuscular Hemoglobin 28 pg (27-31); Mean Corpuscular Volume 81 fL (80-97); Mean Platelet Volume 8 um3 (7.4-10.4); Platelet Count 63 10^3/ul (150-450); Red Blood Count 2.79 10^6/ul (4.0-5.4); Red Cell Distribution Width 23 % (10.5-15); White Blood Count 1.2 10^3/ul (3.5-10.8)
[2017-05-16] MEDS: fentaNYL PCA* 20 ML PCA SCH (19:36)
--- NOTE | 2017-05-16 21:24 | OP ---
CC: Korey Lewis MD; Anny Melendrez MD; Regan Sandoval MD * DATE OF OPERATION: 05/14/17 - ROOM #ICU-105 DATE OF : 43 SURGEON: Dr. Bah. DATABASE DESIGN ANALYST: Dr. Hernandez. ANESTHESIOLOGIST: Raj Rivas. ANESTHESIA: General. PRE-OP DIAGNOSIS: Acute abdomen. POST-OP DIAGNOSIS: Perforated small bowel and multiple small bowel loop enteric fluid collections. OPERATIVE PROCEDURE: Exploratory laparotomy, abdominal washout and oversew of small bowel perforation. ESTIMATED BLOOD LOSS: Less than 100 cc. IV FLUIDS: 1700 cc crystalloid fluid and 500 cc of hetastarch. SPECIMEN: None. DRAINS: None. WOUND: Closed the fascia along with additional retention sutures and otherwise packed open. DESCRIPTION OF PROCEDURE: Ms. Roy was identified in the preoperative area. She had been marked. She was brought to the operating room and placed on the operating table in supine position. Attempts at radial A-lines were made and these were unsuccessful and Anesthesia asked me to place an arterial line and this was performed through the left femoral artery. I did make an attempt on the right side to pass the needle without success and only hitting the vein at those times, then moved over to the left side. This was sewn to the skin and dressed. The patient was then intubated. The patient's abdomen was prepped and draped in a standard surgical fashion. A time-out was performed. An upper midline incision was made staying away from the inflamed umbilicus. This was deepened down through the layers and entry into the abdominal cavity was made. Both air and succus was forthcoming. We were able to make a minimal blunt dissection along the midline and clear up attachments and look in. We suctioned additional contents and made a decision to increase the incision along the umbilicus staying away from the granulation tissue and extending this on to the left side with larger midline incision. We were able to slowly and carefully evacuate the small bowel. It became clear that there was an area of enteric contents through portion of the bowel loop that was anterior. This single 2-0 silk suture was used to stop the flow. We were able to then bring this loop of bowel out and see that additional collections of enteric contents were in the mesenteric folds, which was inflamed and woody throughout much of the small bowel. A blunt dissection was carried out laterally to fully eviscerate the small bowel. We were able to do this. Transverse colon was attached to the anterior abdominal wall and the left upper quadrant. No omentum was really to be seen. The ligament of Treitz was identified. Small bowel was thickened, mildly dilated proximally with edematous and woody mesentry. The patient had peritoneal attachments consistent with metastatic disease, some of these were oozing from the blunt dissection, but the left abdominal wall was packed off with lap pads while we continued to run the bowel to the terminal ileum. No additional perforations were noted. Only the one and the single stitch had stopped the flow at this side. We did get into additional pockets of enteric contents that were interloop collections. None of these appear to be purulent and no cultures were taken. With the small bowel fully eviscerated, we were able to look down into the pelvis. Sigmoid colon was attached to the left iliac fossa. This was bluntly brought up to identify this better. There appeared to be no openings or injuries within the portion of the sigmoid colon that we could appreciate. This was decompressed. There were signs of inflammation down into the deep pelvis, but I do not believe that there was any evidence of perforated diverticula as the colon which was mostly adhered to the side wall did not appear edematous. Cecum was also identified. This was collapsed and also without injury. The anterior stomach was identified. We had a NG tube placed and there was no evidence of inflammation at this site. There was some succus up at this left upper quadrant. This was suctioned off and irrigated. Similarly, we identified the liver and clear fluid up off of this site. There were no lesions on the liver. Again, there were signs of peritoneal disease. We then copiously irrigated the abdomen with approximately 10 L of warm saline and suctioned this off until the effluent was clear. Pulled the gauze out of the left pericolic gutter. The attachments that had some oozing were controlled with electrocautery. Next, the small bowel was rerun. There was edema throughout the small bowel. There was no discrete obstructing lesion and at the area of the injury, the suture held, and I made the decision not to perform a small bowel resection due to the edema both within the small bowel and the mesentry, felt there was not a good area to bring together without additional injury. We then added a second layer of 2-0 silk sutures to imbricate the closure site. The small bowel was patent at this site. NG tube was checked and was noted to be in position. We allowed the small bowel to drop back into the abdomen and the decision made to remove the umbilicus with its granulation tissue, this was incised down to the fascia, removed. I did not sent for specimen. We then closed the fascia with interrupted #1 Vicryl sutures in [id number] fashion adding #1 Prolene external retention sutures along the way. The wound was then packed opened with 1 inch Iodoform packing, followed by a gauze. Instrument count and needle count was correct at the end of the procedure. [id number] #: [id number] MTDD
[2017-05-17] MEDS: Propofol* 100 ML IV SCH (03:55)
[2017-05-17] MEDS: Chlorhexidine MOUTHWASH 0.12%* 15 ML UDC SCH ×4 (05:08→22:33)
[2017-05-17] MEDS: NS 0.9% 1000 ML* 1,000 ML IV SCH (07:45)
[2017-05-17 08:10] LABS: ABS Basophils 0 10^3/ul (0-0.2); ABS Eosinophils 0 10^3/ul (0-0.6); ABS Lymphocytes 0.2 10^3/ul (1.0-4.8); ABS Monocytes 0 10^3/ul (0-0.8); ABS Neutrophils 0.6 10^3/ul (1.5-7.7); ABS Nucleated RBC 0 10^3/ul; Eosinophil % 0.4 % (0-6); Hematocrit 24 % (35-47); Hemoglobin 8.2 g/dl (12.0-16.0); Lymphocyte % 20.3 % (25-47); Mean Corpuscular HGB Conc 34 g/dl (31-36); Mean Corpuscular Hemoglobin 28 pg (27-31); Mean Corpuscular Volume 81 fL (80-97); Mean Platelet Volume 9 um3 (7.4-10.4); Nucleated Red Blood Cells % 0.4; Platelet Count 44 10^3/ul (150-450); Red Blood Count 2.94 10^6/ul (4.0-5.4); Red Cell Distribution Width 24 % (10.5-15); White Blood Count 0.8 10^3/ul (3.5-10.8)
[2017-05-17] MEDS ORDERED: Calcium Gluconate INJ* 2 GM in NS 0.9% 100 ML* 100 ML IV ONE (08:16)
[2017-05-17 08:19] LABS: EGFR Non-African American 18.8 (>60)
--- NOTE | 2017-05-17 08:27 | RAD ---
Indication: Respiratory failure. Single frontal view of the chest performed at 0738 hours was reviewed. Comparison is made with previous exam dated May 15, 2017. Cardiomegaly is noted. Interstitial edema is noted. Central line is in place. ET tube is at the level of the aortic arch. Bilateral pleural effusions are noted. IMPRESSION: BILATERAL PLEURAL EFFUSIONS. INTERSTITIAL EDEMA IS NOTED. CENTRAL LINE IS IN PLACE.
--- NOTE | 2017-05-17 08:49 | PN ---
Progress Note - Progress Note Date of Service: 05/17/17 Note: [facility] Progress Note Awake, alert...despite Propofol and Fentanyl gtts Calm and cooperative Follows simple commands Responds to questions with nods of head and gestures of face and hands Denies pain, denies nausea Spoke with patient's at bedside ytdy afternoon for a while regarding her current condition SBP 124 HR 80 regular FiO2 25 PEEP 5 SpO2 98 UO ~650 ml last 24 hrs Skin no diaphoresis, no cyanosis Sclerae anicteric, Pupils equal NGT in place...bilious output Oral ETT, oral mucosa pink Neck with Rt IJ TLC Rt chest with mediport Lungs with good air entry bilat, no wheezes Cor RRR no rub, no murmur Abd soft distension, dressing intact, sporadic BS cervantes Ext mild edema, (+)SCDs, Lt Fem A-line WBC 0.8 Hgb 8.2 Plt 44 Lact 0.7 Ca(i) 3.7 Pi 5.8 BUN/Creat 65/2.5 K 4.6 Mg 1.6 Alb 2.6 Bld Cx / bottles with Klebs. pneumoniae CXR basilar effusions, ETT in place IMP: Severe sepsis due to Peritonitis with perforated small bowel as consequence of SBO Gram negative Bacteremia... due to above peritonitis Respiratory Failure Lactic Acidosis...resolved Critical Anemia...transfused to adequate Hgb Neutropenia...persists, on Filgastrim Thrombocytopenia...transfused, persists Acute Kidney Injury...possibly plateauing..is nonoliguric Hx Advanced Stage Endometrial Ca Moderate Protein Calorie Malnutrition Mild Shock Liver with mild cholestasis Hypocalcemia...slightly better PLAN/REC: Hold Propofol gtt CPAP+PSV trial....to advance weaning pending tolerance Transfuse Plts as needed Continue Filgastrim Continue empiric Zosyn and Diflucan Repeat blood Cxs today Replete Ca To consider initiation of TPN today Keep HOB raised Suctioning PRN DVT prophyl Acid Peptic Supp Discussed with Nurse and Resp Tx this AM Discussed plans with patient victoriano re initiation of weaning T>35 min, [facility] services rendered
[2017-05-17] MEDS: Fluconazole 200 MG IVPREMIX(*) 200 MG/100 ML BAG IVPB SCH (09:37)
[2017-05-17] MEDS: FILGRASTIM-SNDZ* 480 MCG/0.8 ML SYRINGE SUBCUT SCH (09:40)
[2017-05-17] MEDS: Piperacillin/Tazobactam VIAL*) 3.375 GM in NS 0.9% 100 ML* 100 ML IVPB SCH ×2 (10:50→22:38)
[2017-05-17] MEDS: Labetalol IV* 5 MG/ML 20 ML VIAL IV PUSH PRN (13:54)
[2017-05-17] MEDS: Pantoprazole IV* 40 MG IV SCH (14:00)
--- NOTE | 2017-05-17 15:55 | SURGPN ---
Subjective - Introduction -: Admitted on: 05/15/2017 Patient's surgical date: 05/15/2017 Procedure completed: Exploratory laparotomy with repair of small bowel enterotomy - Medications -: Active Medications Generic Name Dose Route Start Last Admin Trade Name Freq PRN Reason Stop Dose Admin Chlorhexidine Gluconate 15 ml 05/15/17 15:00 05/17/17 15:41 Peridex Mouth Wash 0.12%* .SEE ORDER Not Given Q4H [place] Filgrastim-Sndz 480 mcg 05/15/17 09:00 05/17/17 09:40 Zarxio* SUBCUT 480 mcg DAILY [place] Administration Propofol 100 mls @ 7.294 mls/hr 05/15/17 01:00 05/17/17 03:55 Diprivan* IV 7.294 mls/hr .(Initial Rate) [place] Administration Protocol 20 MCG/KG/MIN Sodium Chloride 1,000 mls @ 75 mls/hr 05/15/17 10:45 05/17/17 07:45 Ns 0.9% 1000 Ml* IV 75 mls/hr PER RATE [place] Administration Fentanyl Citrate 20 mls @ 0 mls/hr 05/15/17 11:00 05/16/17 19:36 Fentanyl High School Agriculture Teacher* CLIPPER OPERATOR 0.5 mls/hr .change Q24H [place] Administration Protocol Per Protocol Fluconazole/Sodium Chloride 200 mg in 100 mls @ 100 mls/hr 05/16/17 10:00 09:37 Diflucan 200 Mg Ivpremix(*) IVPB 100 mls/hr Q24H [place] Administration Piperacillin Sod/Tazobactam 100 mls @ 25 mls/hr 05/16/17 22:00 05/17/17 10:50 Sod 3.375 gm/ Sodium Chloride IVPB 25 mls/hr Q12H [place] Administration Fat Emulsion Intravenous 250 1,261 mls @ 52.542 mls/hr 05/17/17 17:00 ml/ Multivitamins 10 ml/ Trace CENTR 05/18/17 16:59 Metals 1 ml/ Amino Acid 4.25/ 1700 [place] D25 TPN HILDA* Protocol Labetalol HCl 10 mg 05/17/17 12:27 05/17/17 13:54 Trandate Iv* IV PUSH 10 mg Q6H PRN Administration BLOOD PRESSURE Pantoprazole Sodium 40 mg 05/15/17 13:00 05/17/17 14:00 Protonix Iv* IV 40 mg Q24H [place] Administration - Comments Comments: Extubated around noon, reports doing "OK". Denies abdominal pain, chest pain or SOB. present in room. Objective - Objective -: Awake and alert, drowsy at times, but easily aroused, in NAD. - Intake and Output -: Intake & Output 05/15/17 05/16/17 05/17/17 05/18/17 06:59 06:59 06:59 06:59 Intake Total 3351 5470.4 2596.4 566 Output Total 040 851 1007 450 Balance 3176 4795.4 846.4 116 Weight 150 lb 9.211 oz 166 lb 7.184 oz Intake: IV Fluids 3322 4404 1114 535 ABX - ZOSYN 100 Flucanozole 100 100 KVO W/ABX 148 117 LACTATED RINGERS 3174 1000 NS 3404 897 335 IVPB 205 766 ABX - ZOSYN 100 95 NS 105 195 PRBC 476 Medicated IV 29 861.4 236.4 31 PROPOFOL 29 151.4 136.4 31 albumin 710 100 Oral 480 Output: NG Tube Drainage Amount 1100 Raines 175 675 650 450 Surgical Physical Exam - Comments -: Vitals reviewed, Tmax 100.4, HR 90s Lungs CTA, oxygen mask in place, extubated Heart RRR, no murmurs Abdomen soft, ND, NT. Incision clean and dry. Packing changed, retaining sutures in place. Bowel sounds absent. Labs noted, pancytopenia. Assessment and Plan - Assessment -: POD#2, s/p exploratory laparotomy with repair of small bowel entrotomy. Hx metastatic uterine cancer. - Plan Additional Comments: Metastatic uterine CA Keep NPO, only ice chips for now NG tube DVT, SCS only for now giving her thrombocytopenia. GI prophylaxis
[2017-05-17] MEDS ORDERED: [UNRECOGNIZED DRUG - OTHER] CENTR SCH ×4 (17:00)
[2017-05-17] MEDS ORDERED: TPN CENTR SCH ×4 (17:00)
[2017-05-17] MEDS ORDERED: AMINO ACID CENTR SCH ×4 (17:00)
[2017-05-17] MEDS ORDERED: LIPID EMULSION CENTR SCH ×4 (17:00)
[2017-05-18] MEDS: Chlorhexidine MOUTHWASH 0.12%* 15 ML UDC SCH (05:03)
[2017-05-18] MEDS: Labetalol IV* 5 MG/ML 20 ML VIAL IV PUSH PRN ×2 (06:33→18:03)
[2017-05-18 06:44] LABS: INR 0.92 (0.77-1.02)
[2017-05-18 06:54] LABS: EGFR Non-African American 24.3 (>60)
[2017-05-18 07:05] LABS: Hematocrit 26 % (35-47); Hemoglobin 8.7 g/dl (12.0-16.0); Mean Corpuscular HGB Conc 34 g/dl (31-36); Mean Corpuscular Hemoglobin 28 pg (27-31); Mean Corpuscular Volume 82 fL (80-97); Mean Platelet Volume 10 um3 (7.4-10.4); Platelet Count 35 10^3/ul (150-450); Red Blood Count 3.13 10^6/ul (4.0-5.4); Red Cell Distribution Width 25 % (10.5-15); White Blood Count 0.7 10^3/ul (3.5-10.8)
[2017-05-18] MEDS: fentaNYL PCA* 20 ML PCA SCH (07:06)
[2017-05-18] MEDS ORDERED: Labetalol IV* 5 MG/ML 20 ML VIAL IV PUSH PRN (08:03)
[2017-05-18] MEDS: FILGRASTIM-SNDZ* 480 MCG/0.8 ML SYRINGE SUBCUT SCH (08:47)
[2017-05-18 09:22] LABS: ABS Neutrophils 0.5 10^3/ul (1.5-7.7); Monocytes % 10 % (0-13)
--- NOTE | 2017-05-18 09:39 | PN ---
Progress Note - Progress Note Date of Service: 05/18/17 Note: [facility] Progress Note Extubated sans difficulty ytdy Voice strong Calm and cooperative Follows commands Wants to drink water Reports having only a little pain, denies nausea Spoke with patient's again at bedside ytdy afternoon for a while regarding her current condition SBP 168 HR 80 regular RR 21 SpO2 97 (FM) UO OK Skin no diaphoresis, no cyanosis Sclerae anicteric, Pupils equal NGT in place...bilious output Oral mucosa pink Neck with Rt IJ TLC Rt chest with mediport Lungs with diminished BS in bases, no wheezes Cor RRR no rub, no murmur Abd mild soft distension, dressing intact, quiescent cervantes Ext mild edema, (+)SCDs, Lt Fem A-line WBC 0.7 (~67% polys) Hgb 8.7 Plt 35 INR 0.92 PTT 34.5 Ca 7.5 Pi 5.8 BUN/Creat 67/2.0 K 4.2 Mg 1.8 HCO3 18 Alb 2.5 Bili 1.6 AST 122 ALT 381 Bld Cx 1/ bottles with Klebs. pneumoniae..sens to Zosyn IMP: Severe sepsis due to Peritonitis with perforated small bowel as consequence of SBO Gram negative Bacteremia... due to above peritonitis Respiratory Failure Lactic Acidosis...resolved Anemia...adequate Hgb Neutropenia...persists, on Filgastrim Thrombocytopenia...persists Acute Kidney Injury...decline has plateaued and creat improving..is nonoliguric Hx Advanced Stage Endometrial Ca Moderate Protein Calorie Malnutrition...TPN initiated Mild Shock Liver with mild cholestasis...better Hypocalcemia... better PLAN/REC: Encourage deep breathing, cough, and expectoration Try moving to regular NC Transfuse Plts as needed Continue Filgastrim Continue empiric Zosyn and Diflucan Adjust TPN upward D/C NS D/C A-line Keep HOB raised DVT prophyl Discussed with Nurse T>30 min, [facility] services rendered
[2017-05-18] MEDS: Fluconazole 200 MG IVPREMIX(*) 200 MG/100 ML BAG IVPB SCH (11:03)
[2017-05-18] MEDS: Piperacillin/Tazobactam VIAL*) 3.375 GM in NS 0.9% 100 ML* 100 ML IVPB SCH ×2 (11:06→22:20)
[2017-05-18] MEDS: Pantoprazole IV* 40 MG IV SCH (13:07)
--- NOTE | 2017-05-18 13:37 | PN ---
Progress Note - Progress Note Date of Service: 05/18/17 SOAP: Subjective: Patient seen and examined earlier today. Doing better, occasional abdominal discomfort, tolerated with pain meds. Denies nausea or vomiting. Objective: Awake and alert, comfortable in bed VSS, Tmax 100.3, HR 90s Abdomen soft, NT, ND. Incision clean and dry. Retaining sutures in place. I/O's noted Labs noted Assessment: POD#3, s/p laparotomy with repair of small bowel enterotomy, extubated, stable. Plan: Check labs in AM GI and DVT prophylaxis Will d/w Dr. Bah
[2017-05-18] MEDS: [UNRECOGNIZED DRUG - OTHER] CENTR SCH ×4 (18:37)
[2017-05-18] MEDS: AMINO ACID CENTR SCH ×4 (18:37)
[2017-05-18] MEDS: TPN CENTR SCH ×4 (18:37)
[2017-05-18] MEDS: LIPID EMULSION CENTR SCH ×4 (18:37)
[2017-05-19] MEDS: Labetalol IV* 5 MG/ML 20 ML VIAL IV PUSH PRN ×3 (01:41→22:17)
[2017-05-19] MEDS ORDERED: Diazepam INJ (NF) 5 MG/ML 10 ML VIAL (50 MG TOTAL) IV ONE (04:00)
--- NOTE | 2017-05-19 04:45 | PN ---
Progress Note - Progress Note Date of Service: 05/19/17 Note: Patient feeling panicky, called her to come in. [place] like she was dying. Had a kevin discussion with her and her . We discussed she would likely no longer be a candidate for any further chemo given the severity of her deconditioning and major surgery. She is ready to be done. She wants iced apple juice and ice cream. Her is reluctant to give up. Patient is clear in her wishes. She is interested in hospice. Would like to speak with Dr. Bah before making this decision. I discussed if she were interested in the hospice residence, she could continue tpn if she wanted to. I will contact Dr. Carlson regarding possible transfer to hospice residence when appropriate. Valium given for patient for her anxiety.
[2017-05-19 05:53] LABS: Hematocrit 21 % (35-47); Mean Corpuscular HGB Conc 34 g/dl (31-36); Mean Corpuscular Hemoglobin 28 pg (27-31); Mean Corpuscular Volume 81 fL (80-97); Mean Platelet Volume 10 um3 (7.4-10.4); Platelet Count 24 10^3/ul (150-450); Red Blood Count 2.53 10^6/ul (4.0-5.4); Red Cell Distribution Width 25 % (10.5-15); White Blood Count 1.6 10^3/ul (3.5-10.8)
[2017-05-19 06:30] LABS: Monocytes % 2 % (0-13)
[2017-05-19] MEDS ORDERED: Magnesium Sulfate 2 GM IV* 2 GM/50 ML BAG IVPB ONE (07:45)
[2017-05-19] MEDS ORDERED: Furosemide IV* 10 MG/ML 2 ML VIAL (20 MG) IV ONE (08:06)
[2017-05-19] MEDS ORDERED: Diazepam INJ (NF) 5 MG/ML 10 ML VIAL (50 MG TOTAL) IV PRN (08:07)
--- NOTE | 2017-05-19 08:19 | PN ---
Progress Note - Progress Note Date of Service: 05/19/17 SOAP: Subjective: rough night. very anxious. afraid that she is dying and questioning if she should go to hospice. We discussed this at length. She was only relatively recently diagnosed and has had 3 cycles of chemotherapy with very good serological response. She reports very good quality of life until recently. she has been tolerating therapy well with little side effects until this cycle. today she denies any pain. her biggest complaint is a desire to drink apple juice with ice. Objective: Vital Signs Temp Pulse Resp BP Pulse Ox 98.4 F 98 20 174/81 97 05/19/17 04:00 05/19/17 07:30 05/19/17 07:38 05/19/17 07:30 05/19/17 07:30 lying flat in nad perr eomi op dry CTA anteriorly s1 s2 nl distended, anasarcic, nontender anasarcic A+O x 3, nonfocal neurological exam lines clean Laboratory Results - last 24 hr 05/18/17 05/18/17 05/19/17 05:50 08:40 05:19 WBC 0.7 L 1.6 L RBC 3.13 L 2.53 L Hgb 8.7 L 7.0 L Hct 26 L 21 L MCV 82 81 MCH 28 28 MCHC 34 34 RDW 25 H 25 H Plt Count 35 L 24 L MPV 10 10 Absolute Neuts (auto) 0.5 L* Immature Gran % 22 H 5 Neutrophils % 45 79 Band Neutrophils % 6 3 Lymphocytes % 23 L 14 L Monocytes % 10 2 Eosinophils % 0 0 Basophils % 0 0 Metamyelocytes % 10 H 2 Myelocytes % 6 H Abs Neuts (Manual) 0.3 L* 1.3 L Abs Monocytes (Manual) 0.1 0 Absolute Eos (Manual) 0 0 Abs Basophils (Manual) 0 0 Normal RBC Morphology Not Reportable Normal Anisocytosis 1+ Microcytosis 1+ Elliptocytes 1+ Acanthocytes (Spur) 1+ Hem Pathologist Commnt Sodium Potassium Chloride Carbon Dioxide Anion Gap BUN Creatinine Est GFR ( Amer) Est GFR (Non-Af Amer) BUN/Creatinine Ratio Glucose Calcium Ionized Calcium 4.31 L Phosphorus Magnesium Total Bilirubin AST ALT Alkaline Phosphatase Total Protein Albumin Globulin Albumin/Globulin Ratio Blood Type Crossmatch 05/19/17 05/19/17 05/19/17 05:19 05:19 05:30 WBC RBC Hgb Hct MCV MCH MCHC RDW Plt Count MPV Absolute Neuts (auto) Immature Gran % Neutrophils % Band Neutrophils % Lymphocytes % Monocytes % Eosinophils % Basophils % Metamyelocytes % Myelocytes % Abs Neuts (Manual) Abs Monocytes (Manual) Absolute Eos (Manual) Abs Basophils (Manual) Normal RBC Morphology Anisocytosis Microcytosis Elliptocytes Acanthocytes (Spur) Hem Pathologist Commnt Sodium 142 Potassium 3.5 Chloride 115 H Carbon Dioxide 20 L Anion Gap 7 BUN 59 H Creatinine 1.50 H Est GFR ( Amer) 43.8 Est GFR (Non-Af Amer) 34.0 BUN/Creatinine Ratio 39.3 H Glucose 254 H Calcium 7.3 L Ionized Calcium 4.45 L Phosphorus 3.0 Magnesium 1.5 L Total Bilirubin 1.10 H AST 28 ALT 189 H Alkaline Phosphatase 21 L Total Protein 4.1 L Albumin 2.1 L Globulin 2.0 Albumin/Globulin Ratio 1.1 Blood Type A Positive Crossmatch See Detail Filgrastim-Sndz (Zarxio*) 480 mcg SUBCUT DAILY IS[place] Last Admin: 05/18/17 08:47 Dose: 480 mcg Fentanyl Citrate (Fentanyl Diesel Service Journeyman*) 20 mls @ 0 mls/hr TRAVEL ASSISTANT .change Q24H [place]; Per Protocol PRN Reason: Protocol Last Admin: 05/18/17 07:06 Dose: 0.5 mls/hr Fluconazole/Sodium Chloride (Diflucan 200 Mg Ivpremix(*)) 200 mg in 100 mls @ 100 mls/hr IVPB Q24H [place]EL Last Admin: 05/18/17 11:03 Dose: 100 mls/hr Piperacillin Sod/Tazobactam (Sod 3.375 gm/ Sodium Chloride) 100 mls @ 25 mls/ hr IVPB Q12H [place] Last Admin: 05/18/17 22:20 Dose: 25 mls/hr Fat Emulsion Intravenous 125 ml/ Multivitamins 10 ml/ Trace Metals 1 ml/ Amino Acid 4.25/D25 TPN HILDA* 1,136 mls @ 47.333 mls/hr CENTR 1700 [place] PRN Reason: Protocol Last Admin: 05/18/17 18:37 Dose: 47.333 mls/hr Magnesium Sulfate (Magnesium Sulfate 2 Gm Iv*) 2 gm in 50 mls @ 50 mls/hr IVPB ONCE ONE Stop: 05/19/17 08:44 Labetalol HCl (Trandate Iv*) 20 mg IV PUSH Q4H PRN PRN Reason: BLOOD PRESSURE Last Admin: 05/19/17 01:41 Dose: 20 mg Pantoprazole Sodium (Protonix Iv*) 40 mg IV Q24H [place] Last Admin: 05/18/17 13:07 Dose: 40 mg Assessment: 72 yo F w recently diagnosed endometrial CA on first line chemotherapy with carbo/taxol, sp 3 cycles. To date she has had a relatively good QOL with good response to therapy thus far. I discussed with her that the determining factor will be whether or not she recovers from this relatively major insult, and how long it would take to get back to therapy. If she continues to recover as she is it is not unreasonable that she could go back on this therapy and have a good QOL. Obviously a hospice conversation is appropriate at any point, but I do think at this exact moment that she may be a candidate for further therapy. In terms of her anxiety, we discussed both cognitive behavioral therapy and antianxiety medications. Plan: -cont neupogen until ANC >3000 x 2 days -transfuse Hb <7.5 -transfuse plts <15 or bleeding -add prn ativan anxiety
[2017-05-19] MEDS ORDERED: LORazepam INJ* 2 MG/ML 1 ML VIAL IV PUSH PRN (08:40)
--- NOTE | 2017-05-19 09:10 | PN ---
Progress Note - Progress Note Date of Service: 05/19/17 Note: [facility] Progress Note Cooperative Follows commands Taking ice chips Reports feeloing anxious...takes Valium PRN at home Denies pain No flatus I spoke with Dr Niurka stark regarding progress over prior 24 hrs SBP 164 HR 93 regular RR 17 SpO2 97 (NC) UO OK Skin no diaphoresis, no cyanosis Sclerae anicteric, Pupils equal NGT in place Oral mucosa pink Neck with Rt IJ TLC Rt chest with mediport Lungs with diminished BS in bases, no wheezes Cor RRR no rub, no murmur Abd mild soft distension, dressing intact, quiescent cervantes Ext mild edema, (+)SCDs WBC 1.6 (~79% polys) Hgb 7.0 Plts 24 Ca(i) 4.45 BUN/Creat 59/1.5 Gluc 250-270 K 3.5 Mg 1.5 HCO3 20 Alb 2.1 Bili 1.1 IMP: Severe sepsis due to Peritonitis with perforated small bowel as consequence of SBO Gram negative Bacteremia... due to above peritonitis Respiratory Failure...extubated 48 hrs Anemia...marginal Hgb Neutropenia...persists but beginning to recover...ANC>1000....remains on Filgastrim Thrombocytopenia...persists Acute Kidney Injury...decline has plateaued and creat improving..is nonoliguric Hx Advanced Stage Endometrial Ca Moderate Protein Calorie Malnutrition...TPN initiated Mild Shock Liver with mild cholestasis...better Hypocalcemia... better Hypomagnesemia Anxiety PLAN/REC: Encourage deep breathing, cough, and expectoration Transfuse Plts as needed Continue Filgastrim Continue empiric Zosyn and Diflucan Adjust TPN as needed Transfuse PRBC Lasix with PRBC Keep HOB raised DVT prophyl D/C Fentanyl Dilaudid PRN Replete Mg OOB to chair Ativan PRN Discussed with Nurse T>30 min, [facility] services rendered
[2017-05-19] MEDS: FILGRASTIM-SNDZ* 480 MCG/0.8 ML SYRINGE SUBCUT SCH (09:26)
[2017-05-19] MEDS: Fluconazole 200 MG IVPREMIX(*) 200 MG/100 ML BAG IVPB SCH (09:30)
[2017-05-19] MEDS: Piperacillin/Tazobactam VIAL*) 3.375 GM in NS 0.9% 100 ML* 100 ML IVPB SCH ×2 (11:23→18:02)
[2017-05-19] MEDS: Pantoprazole IV* 40 MG IV SCH (13:16)
[2017-05-19] MEDS: HYDROmorphone INJ* 2 MG/ML CARPUJECT SYRINGE IV SLOW PU PRN (15:08)
[2017-05-19] MEDS: [UNRECOGNIZED DRUG - OTHER] CENTR SCH ×4 (16:30)
[2017-05-19] MEDS: LIPID EMULSION CENTR SCH ×4 (16:30)
[2017-05-19] MEDS: TPN CENTR SCH ×4 (16:30)
[2017-05-19] MEDS: AMINO ACID CENTR SCH ×4 (16:30)
[2017-05-20] MEDS: Piperacillin/Tazobactam VIAL*) 3.375 GM in NS 0.9% 100 ML* 100 ML IVPB SCH ×3 (02:11→17:18)
[2017-05-20] MEDS: HYDROmorphone INJ* 2 MG/ML CARPUJECT SYRINGE IV SLOW PU PRN ×3 (04:07→21:12)
[2017-05-20 05:20] LABS: EGFR Non-African American 37.8 (>60)
[2017-05-20 05:30] LABS: Hematocrit 25 % (35-47); Hemoglobin 8.4 g/dl (12.0-16.0); Mean Corpuscular HGB Conc 34 g/dl (31-36); Mean Corpuscular Hemoglobin 28 pg (27-31); Mean Corpuscular Volume 81 fL (80-97); Red Blood Count 3.03 10^6/ul (4.0-5.4); Red Cell Distribution Width 23 % (10.5-15); White Blood Count 5.5 10^3/ul (3.5-10.8)
[2017-05-20 05:54] LABS: Mean Platelet Volume 9 um3 (7.4-10.4); Platelet Count 33 10^3/ul (150-450)
[2017-05-20 06:08] LABS: Monocytes % 3 % (0-13)
[2017-05-20] MEDS: FILGRASTIM-SNDZ* 480 MCG/0.8 ML SYRINGE SUBCUT SCH (09:08)
[2017-05-20] MEDS: Labetalol IV* 5 MG/ML 20 ML VIAL IV PUSH PRN ×2 (09:09→18:38)
[2017-05-20] MEDS: Fluconazole 200 MG IVPREMIX(*) 200 MG/100 ML BAG IVPB SCH (09:18)
--- NOTE | 2017-05-20 12:16 | PN ---
Progress Note - Progress Note Date of Service: 05/20/17 SOAP: Subjective: Pt seen and examined. Case has been discussed with CCM throughout the week. Pt remains on TPN. NGT. SOme very small BM's No flatus. Some abdo pain 2/ 10. thirsty. Pt is very week and unable to sit up Oncology note appreciated. Objective: tm 100.5, af vss total body water overloaded; neg I/Os for past 24hrs- pt did receive lasix Uo good NGT continued output. Neck: tlc in place- no redness lungs decre BS b/l abdo: soft, minimally tender, edematous. packing changed at midline incision, exposed adipose tissue without granulation tissue. labs noted Cx noted Assessment: POD 6 ex lap, abdo washout, closure of sb perf, HD stable. weak; ileus. Plan: abx, CT scan if spikes fever. NGT for 24 more hrs. continue TPN PT continue ICU care.
[2017-05-20] MEDS: Pantoprazole IV* 40 MG IV SCH (13:49)
--- NOTE | 2017-05-20 16:59 | PN ---
Progress Note - Progress Note Date of Service: 05/20/17 - [facility] progress note Note: Pt seen and examined at bedside. Pt reports feeling better, denies any complaints Active Medications Generic Name Dose Route Start Last Admin Trade Name Freq PRN Reason Stop Dose Admin Heparin Sodium (Porcine) 1 ml 05/19/17 18:00 05/20/17 04:55 Heparin Flush Picc/Ml/Cvc(*) FLUSH 3 ml 0600,1800 [place] Administration Protocol Hydromorphone HCl 1 mg 05/19/17 09:15 05/20/17 11:38 Dilaudid Inj* IV SLOW PU 1 mg Q4H PRN Administration PAIN Fluconazole/Sodium Chloride 200 mg in 100 mls @ 100 mls/hr 05/16/17 10:00 09:18 Diflucan 200 Mg Ivpremix(*) IVPB 100 mls/hr Q24H [place] Administration Fat Emulsion Intravenous 125 1,136 mls @ 47.333 mls/hr 05/18/17 17:00 16:30 ml/ Multivitamins 10 ml/ Trace CENTR 47.333 mls/hr Metals 1 ml/ Amino Acid 4.25/ 1700 IS[place]EL Administration D25 TPN HILDA* Protocol Piperacillin Sod/Tazobactam 100 mls @ 25 mls/hr 05/19/17 18:00 05/20/17 09:08 Sod 3.375 gm/ Sodium Chloride IVPB 25 mls/hr 0200,1000,1800 IS[place]EL Administration Labetalol HCl 20 mg 05/18/17 12:24 05/20/17 09:09 Trandate Iv* IV PUSH 20 mg Q4H PRN Administration BLOOD PRESSURE Lorazepam 0.5 mg 05/19/17 08:40 Ativan Inj* IV PUSH Q6H PRN ANXIETY Pantoprazole Sodium 40 mg 05/15/17 13:00 05/20/17 13:49 Protonix Iv* IV 40 mg Q24H IS[place] Administration Vital Signs Temp Pulse Resp BP Pulse Ox 99.5 F 84 16 142/63 96 05/20/17 16:00 05/20/17 16:01 05/20/17 16:01 05/20/17 16:00 05/20/17 16:01 O/E: Pt in NAD, alert, awake HEENT: PERRLA, No JVD, NGT+ Lungs: Good a/e b/l, mild rhonchi + CVS: S1, S2+, regular Abd: Soft, NT Ext: Trace edema Neuro: No focal defecits Laboratory Results - last 24 hr 05/20/17 05/20/17 05/20/17 05:00 05:00 05:00 WBC 5.5 RBC 3.03 L Hgb 8.4 L Hct 25 L MCV 81 MCH 28 MCHC 34 RDW 23 H Plt Count 33 L MPV 9 Neut % (Auto) Not Reportable Lymph % (Auto) Not Reportable [place] % (Auto) Not Reportable Eos % (Auto) Not Reportable Baso % (Auto) Not Reportable Absolute Neuts (auto) Not Reportable Absolute Lymphs (auto) Not Reportable Absolute Monos (auto) Not Reportable Absolute Eos (auto) Not Reportable Absolute Basos (auto) Not Reportable Absolute Nucleated RBC Not Reportable Immature Gran % 8 Neutrophils % 82 Band Neutrophils % 7 Lymphocytes % 7 L Monocytes % 3 Metamyelocytes % 1 Nucleated RBC % Not Reportable Abs Neuts (Manual) 5.0 Abs Monocytes (Manual) 0.1 Normal RBC Morphology Normal Sodium 145 Potassium 3.2 L Chloride 115 H Carbon Dioxide 22 Anion Gap 8 BUN 60 H Creatinine 1.37 H Est GFR ( Amer) 48.6 Est GFR (Non-Af Amer) 37.8 BUN/Creatinine Ratio 43.8 H Glucose 236 H Calcium 7.7 L Ionized Calcium 4.53 L Phosphorus 3.1 Magnesium 1.8 L Total Bilirubin 1.30 H AST 17 ALT 112 H Alkaline Phosphatase 33 L Total Protein 4.4 L Albumin 2.2 L Globulin 2.2 Albumin/Globulin Ratio 1.0 Triglycerides 353 Cholesterol 112 LDL Cholesterol 38 HDL Cholesterol 3.8 05/20/17 13:30 WBC RBC Hgb Hct MCV MCH MCHC RDW Plt Count MPV Neut % (Auto) Lymph % (Auto) [place] % (Auto) Eos % (Auto) Baso % (Auto) Absolute Neuts (auto) Absolute Lymphs (auto) Absolute Monos (auto) Absolute Eos (auto) Absolute Basos (auto) Absolute Nucleated RBC Immature Gran % Neutrophils % Band Neutrophils % Lymphocytes % Monocytes % Metamyelocytes % Nucleated RBC % Abs Neuts (Manual) Abs Monocytes (Manual) Normal RBC Morphology Sodium Potassium Chloride Carbon Dioxide Anion Gap BUN Creatinine Est GFR ( Amer) Est GFR (Non-Af Amer) BUN/Creatinine Ratio Glucose Calcium Ionized Calcium Phosphorus Magnesium Total Bilirubin AST ALT Alkaline Phosphatase Total Protein Albumin Globulin Albumin/Globulin Ratio Triglycerides 356 Cholesterol 101 LDL Cholesterol 24 HDL Cholesterol 6.2 I/R: 72 y o f with recently dx endometrial ca with severe neutropenic sepsis due to Peritonitis with perforated small bowel as consequence of SBO s/p ex-lab day#6, Gram negative Bacteremia, respiratory Failure, extubated 3 days ago, anemia, neutropenia resolved, thrombocytopenia, acute Kidney Injury, creat improving, electrolyte abnormalities Improving clinically, resp status stable, on nasal cannula, encourage deep breathing, Hb stable, platelets still low, c/w empiric Zosyn and Diflucan Adjust TPN , f/u triglyceride levels Aspiration precautions, keep HOB raised Dilaudid PRN Replete electrolytes as needed OOB to chair, possible d/g to floor in am if stable D/w Dr Bah
[2017-05-20] MEDS: LIPID EMULSION CENTR SCH ×4 (17:15)
[2017-05-20] MEDS: TPN CENTR SCH ×4 (17:15)
[2017-05-20] MEDS: [UNRECOGNIZED DRUG - OTHER] CENTR SCH ×4 (17:15)
[2017-05-20] MEDS: AMINO ACID CENTR SCH ×4 (17:15)
[2017-05-21] MEDS: Piperacillin/Tazobactam VIAL*) 3.375 GM in NS 0.9% 100 ML* 100 ML IVPB SCH ×3 (02:08→17:56)
[2017-05-21] MEDS: Labetalol IV* 5 MG/ML 20 ML VIAL IV PUSH PRN (03:10)
[2017-05-21] MEDS: HYDROmorphone INJ* 2 MG/ML CARPUJECT SYRINGE IV SLOW PU PRN ×2 (03:56→20:34)
--- NOTE | 2017-05-21 09:34 | PN ---
Progress Note - Progress Note Date of Service: 05/21/17 SOAP: Subjective: Pt seen and examined. . Pt remains on TPN. NGT. multiple loose Bms. Positive flatus. Some abdo pain 2/10. thirsty. Pt is very weak; we did sit her up, and then she stood for a moment. Objective: af vss Uo good NGT decreased output--removed lungs decre BS b/l abdo: soft, minimally tender, edematous. packing changed at midline incision, exposed adipose tissue without granulation tissue. hypoactive BS, L groin ecchymosis Assessment: POD 7 ex lap, abdo washout, closure of sb perf, HD stable. weak; ileus. Plan: abx, CT scan if spikes fever. sips of clears continue TPN PT continue ICU care. FORD to cover this weekend Hospitalist to follow regarding electrolytes, abx, tpn []
[2017-05-21] MEDS: Fluconazole 200 MG IVPREMIX(*) 200 MG/100 ML BAG IVPB SCH (10:15)
[2017-05-21 12:15] LABS: EGFR Non-African American 41.2 (>60)
[2017-05-21 13:07] LABS: Hematocrit 24 % (35-47); Hemoglobin 8.1 g/dl (12.0-16.0); Mean Corpuscular HGB Conc 33 g/dl (31-36); Mean Corpuscular Hemoglobin 28 pg (27-31); Mean Corpuscular Volume 84 fL (80-97); Red Cell Distribution Width 23 % (10.5-15); White Blood Count 8.8 10^3/ul (3.5-10.8)
[2017-05-21] MEDS: Pantoprazole IV* 40 MG IV SCH (13:25)
[2017-05-21] MEDS ORDERED: Dextrose 50% Syringe 50 ML* 25 GM/50 ML SYRINGE IV PUSH PRN (13:26)
[2017-05-21] MEDS: KCL 10 MEQ/50 ML IVPREMIX* 10 MEQ/50 ML BAG IV SCH ×6 (13:46→23:07)
[2017-05-21] MEDS ORDERED: D5W 1000 ML BAG* 1,000 ML IV SCH (14:00)
[2017-05-21 14:28] LABS: Mean Platelet Volume 10 um3 (7.4-10.4); Platelet Count 46 10^3/ul (150-450)
[2017-05-21] MEDS: Insulin LISPRO* 1 UNITS UNIT SUBCUT SCH ×2 (16:15→20:23)
[2017-05-21] MEDS: CLINIMIX E CENTR SCH ×5 (17:47)
[2017-05-21] MEDS: BASE CENTR SCH ×5 (17:47)
[2017-05-22] MEDS: Insulin LISPRO* 1 UNITS UNIT SUBCUT SCH ×6 (00:33→20:44)
[2017-05-22] MEDS: Piperacillin/Tazobactam VIAL*) 3.375 GM in NS 0.9% 100 ML* 100 ML IVPB SCH ×3 (01:36→17:38)
[2017-05-22 05:57] LABS: EGFR Non-African American 43.6 (>60)
[2017-05-22 06:41] LABS: Platelet Count 90 10^3/ul (150-450)
[2017-05-22 06:43] LABS: Monocytes % 1 % (0-13)
[2017-05-22 06:46] LABS: Hematocrit 24 % (35-47); Mean Corpuscular HGB Conc 34 g/dl (31-36); Mean Corpuscular Hemoglobin 28 pg (27-31); Mean Corpuscular Volume 83 fL (80-97); Red Blood Count 2.86 10^6/ul (4.0-5.4); Red Cell Distribution Width 22 % (10.5-15); White Blood Count 7.9 10^3/ul (3.5-10.8)
[2017-05-22] MEDS: Fluconazole 200 MG IVPREMIX(*) 200 MG/100 ML BAG IVPB SCH (09:58)
[2017-05-22] MEDS ORDERED: Magnesium Sulfate IV* 3 GM in NS 0.9% 100 ML* 100 ML IVPB ONE (11:21)
--- NOTE | 2017-05-22 12:21 | PN ---
Progress Note - Progress Note Date of Service: 05/22/17 Note: S/P repair SB perf T100, VS noted On TPN. UO large Reyna sips of clears Pain control OK. No N/V Abd soft, sore, packing changed, not much granulation, but no sign of infection Suprapubic area with erythema and edema Cont Abx and TPN per hospitalist Cont wound care\ Advance diet slowly as tolerated.
[2017-05-22] MEDS: KCL 10 MEQ/50 ML IVPREMIX* 10 MEQ/50 ML BAG IV SCH ×3 (14:43→15:42)
[2017-05-22] MEDS: Pantoprazole IV* 40 MG IV SCH (14:43)
[2017-05-22] MEDS: CLINIMIX E CENTR SCH ×5 (17:33)
[2017-05-22] MEDS: BASE CENTR SCH ×5 (17:33)
[2017-05-22] MEDS ORDERED: Diazepam TAB(*) 2 MG PO PRN (17:56)
[2017-05-23] MEDS: Insulin LISPRO* 1 UNITS UNIT SUBCUT SCH ×6 (00:15→19:53)
[2017-05-23] MEDS: Piperacillin/Tazobactam VIAL*) 3.375 GM in NS 0.9% 100 ML* 100 ML IVPB SCH ×3 (02:10→18:20)
[2017-05-23] MEDS: Labetalol IV* 5 MG/ML 20 ML VIAL IV PUSH PRN (04:13)
[2017-05-23 06:08] LABS: EGFR Non-African American 42.8 (>60)
[2017-05-23 06:21] LABS: ABS Basophils 0 10^3/ul (0-0.2); ABS Eosinophils 0 10^3/ul (0-0.6); ABS Lymphocytes 0.6 10^3/ul (1.0-4.8); ABS Monocytes 0.1 10^3/ul (0-0.8); ABS Neutrophils 6.1 10^3/ul (1.5-7.7); ABS Nucleated RBC 0 10^3/ul; Eosinophil % 0 % (0-6); Hematocrit 23 % (35-47); Hemoglobin 7.7 g/dl (12.0-16.0); Lymphocyte % 8.5 % (25-47); Mean Corpuscular HGB Conc 34 g/dl (31-36); Mean Corpuscular Hemoglobin 28 pg (27-31); Mean Corpuscular Volume 84 fL (80-97); Mean Platelet Volume 11 um3 (7.4-10.4); Nucleated Red Blood Cells % 0; Platelet Count 79 10^3/ul (150-450); Red Blood Count 2.74 10^6/ul (4.0-5.4); Red Cell Distribution Width 22 % (10.5-15); White Blood Count 6.8 10^3/ul (3.5-10.8)
[2017-05-23] MEDS: HYDROmorphone INJ* 2 MG/ML CARPUJECT SYRINGE IV SLOW PU PRN ×3 (06:30→21:06)
[2017-05-23] MEDS: Fluconazole 200 MG IVPREMIX(*) 200 MG/100 ML BAG IVPB SCH (10:03)
--- NOTE | 2017-05-23 10:58 | PN ---
Progress Note - Progress Note Date of Service: 05/23/17 SOAP: Subjective: Patient seen and examined. Reports doing better overall. Tolerating sips of clears. Multiple loose BMs past couple of days. Denies nausea, vomiting or abdominal pain. OOB to chair with PT/OT. Has no complaints today. Objective: Awake and alert, laying on bed, appears comfortable and in NAD Vitals reviewed, Tmax 100.1, HR high 70s Abdomen soft, NT, ND. Incision clean and dry, retaining sutures intact. No wound granulation noted. No bleeding or discharge. Packing changed and derssing applied. Ext. with 2+ edema I/O's reviewed Labs reviewed, hyperglycemia 2/2 TPN, on insluin sliding scale Assessment: s/p exploratory laparotomy with repair of small bowel enterotomy, stable Plan: Advance diet Medical management per hospitalist
[2017-05-23] MEDS: Pantoprazole IV* 40 MG IV SCH (13:20)
[2017-05-23] MEDS ORDERED: TPN CENTR SCH ×11 (17:00)
[2017-05-23] MEDS ORDERED: AMINO ACID INFUSION CENTR SCH ×11 (17:00)
[2017-05-23] MEDS ORDERED: WATER CENTR SCH ×11 (17:00)
[2017-05-23] MEDS ORDERED: [UNRECOGNIZED DRUG - OTHER] CENTR SCH ×11 (17:00)
[2017-05-23] MEDS ORDERED: DEXTROSE CENTR SCH ×11 (17:00)
[2017-05-24] MEDS: Insulin LISPRO* 1 UNITS UNIT SUBCUT SCH ×7 (00:33→23:57)
[2017-05-24] MEDS: Piperacillin/Tazobactam VIAL*) 3.375 GM in NS 0.9% 100 ML* 100 ML IVPB SCH ×2 (02:07→09:33)
[2017-05-24] MEDS: HYDROmorphone INJ* 2 MG/ML CARPUJECT SYRINGE IV SLOW PU PRN ×4 (04:23→21:00)
[2017-05-24] MEDS: Fluconazole 200 MG IVPREMIX(*) 200 MG/100 ML BAG IVPB SCH (09:26)
--- NOTE | 2017-05-24 09:33 | CONSULT ---
Palliative / Hospice Consult Ordering Provider: Tiffanie Gu - Subjective Code Status: Full Code-Needs Follow Up MOLST Part A Completed: Yes - DNR Date: 05/24/17 MOLST Part E Completed:: Yes - DNI Date: 05/24/17 - History or Present Illness History or Present Illness: This 72 year old with metastatic endometrial cancer has been hospitalized for 10 days, having underrgone surgery for bowel perforation on her first day here, and found to have extensive intraperitoneal disease and having her bowel perforation oversewn as it was not possible to cleanly resect the involved bowel. The patient deteriorated and required intubation in the ICU, and last week had asked for consideration of hospice as she felt she was imminently dying. She is now extubated and doing better, and she is taking small amounts of clear liquids and in general says she is feeling more optimisitic. She wants to see how things progress, but we had a conversation about what she is still willing to go through to try to extend her life, and she wants to, for the time being, keep pursuing options for life-prolonging measures. I also noted that she is a full code, and when I asked her about CPR and intubation, she was quite clear in saying she does not want either of those. She has been receiving TPN although her albumin, which was 2.6 on admission, has dropped to 1.9 currently. Lab Values: Abnormal Lab Results 05/23/17 05/23/17 05/23/17 08:20 12:38 16:29 POC Glucose (mg/dL) 248 H 252 H 261 H 05/23/17 05/24/17 05/24/17 19:46 00:27 04:28 POC Glucose (mg/dL) 239 H 220 H 238 H 05/24/17 08:15 POC Glucose (mg/dL) 246 H Laboratory Last Values WBC 6.8 10^3/ul (3.5-10.8) 05/23/17 05:30 RBC 2.74 10^6/ul (4.0-5.4) L 05/23/17 05:30 Hgb 7.7 g/dl (12.0-16.0) L 05/23/17 05:30 Hct 23 % (35-47) L 05/23/17 05:30 MCV 84 fL (80-97) 05/23/17 05:30 MCH 28 pg (27-31) 05/23/17 05:30 MCHC 34 g/dl (31-36) 05/23/17 05:30 RDW 22 % (10.5-15) H 05/23/17 05:30 Plt Count 79 10^3/ul (150-450) L D 05/23/17 05:30 MPV 11 um3 (7.4-10.4) H 05/23/17 05:30 Neut % (Auto) 89.6 % (38-83) H 05/23/17 05:30 Lymph % (Auto) 8.5 % (25-47) L 05/23/17 05:30 [place] % (Auto) 1.4 % (1-9) 05/23/17 05:30 Eos % (Auto) 0 % (0-6) 05/23/17 05:30 Baso % (Auto) 0.5 % (0-2) 05/23/17 05:30 Absolute Neuts (auto) 6.1 10^3/ul (1.5-7.7) 05/23/17 05:30 Absolute Lymphs (auto) 0.6 10^3/ul (1.0-4.8) L 05/23/17 05:30 Absolute Monos (auto) 0.1 10^3/ul (0-0.8) 05/23/17 05:30 Absolute Eos (auto) 0 10^3/ul (0-0.6) 05/23/17 05:30 Absolute Basos (auto) 0 10^3/ul (0-0.2) 05/23/17 05:30 Absolute Nucleated RBC 0 10^3/ul 05/23/17 05:30 Immature Gran % 1 % (0-9) 05/22/17 05:30 Neutrophils % 86 % (38-83) H 05/22/17 05:30 Band Neutrophils % 1 % (0-8) 05/22/17 05:30 Lymphocytes % 12 % (25-47) L 05/22/17 05:30 Monocytes % 1 % (0-13) 05/22/17 05:30 Eosinophils % 0 % (0-6) 05/19/17 05:19 Basophils % 0 % (0-2) 05/19/17 05:19 Metamyelocytes % 1 % (0-2) 05/20/17 05:00 Myelocytes % 6 % (0-1) H 05/18/17 05:50 Nucleated RBC % 0 05/23/17 05:30 Abs Neuts (Manual) 5.0 10^3/ul (1.5-7.7) 05/20/17 05:00 Abs Monocytes (Manual) 0.1 10^3/ul (0-0.8) 05/20/17 05:00 Absolute Eos (Manual) 0 10^3/ul (0-0.6) 05/19/17 05:19 Abs Basophils (Manual) 0 10^3/ul (0-0.2) 05/19/17 05:19 Toxic Granulation 2+ 05/22/17 05:30 Large Platelets Present 05/22/17 05:30 Normal RBC Morphology Not Reportable 05/22/17 05:30 Hypochromasia 1+ 05/22/17 05:30 Anisocytosis 1+ 05/18/17 05:50 Microcytosis 1+ 05/18/17 05:50 Elliptocytes 1+ 05/18/17 05:50 Acanthocytes (Spur) 1+ 05/18/17 05:50 Hem Pathologist Commnt 05/18/17 05:50 INR (Anticoag Therapy) 0.92 (0.77-1.02) 05/18/17 05:50 APTT 34.5 seconds (26.0-36.3) 05/18/17 05:50 Fibrinogen 525 mg/dL (110.8-404.3) H 05/15/17 09:10 D-Dimer, Quantitative > 1050 ng/mL (Less Than 230) H 05/15/17 09:10 ABG pH 7.34 (7.35-7.45) L 05/17/17 12:18 ABG pH (Temp Correct) Not Reportable 05/17/17 12:18 ABG pCO2 27 mmHg (35-45) L 05/17/17 12:18 ABG pCO2 (Temp Corrct Not Reportable 05/17/17 12:18 ABG pO2 100 mmHg (80-100) 05/17/17 12:18 ABG pO2 (Temp Correct Not Reportable 05/17/17 12:18 ABG HCO3 17.1 mmol/L (19-31) L 05/17/17 12:18 ABG O2 Saturation 99.2 % (95-98) H 05/17/17 12:18 ABG Base Excess -10.0 (-2.0-2.0) L 05/17/17 12:18 VBG pH 7.31 (7.33-7.43) L 05/15/17 15:28 VBG pCO2 34 mmHg (41-51) L 05/15/17 15:28 VBG pO2 36 mmHg (35-45) 05/15/17 15:28 VBG HCO3 18.0 mmol/L (24-28) L 05/15/17 15:28 VBG O2 Saturation 69.8 % (70-80) L 05/15/17 15: VBG Base Excess -8.4 (0-4) L 05/15/17 15:28 O2 Delivery Device Vent 05/17/17 12:18 Vent Mode spon 05/17/17 12:18 FiO2 25 05/17/17 12:18 PEEP 5 05/17/17 12:18 Pressure Support 7 05/17/17 12:18 Sodium 145 mmol/L (133-145) 05/23/17 05:30 Potassium 3.4 mmol/L (3.5-5.0) L 05/23/17 05:30 Chloride 118 mmol/L (101-111) H 05/23/17 05:30 Carbon Dioxide 20 mmol/L (22-32) L 05/23/17 05:30 Anion Gap 7 mmol/L (2-11) 05/23/17 05:30 BUN 59 mg/dL (6-24) H 05/23/17 05:30 Creatinine 1.23 mg/dL (0.51-0.95) H 05/23/17 05:30 Est GFR ( Amer) 55.0 (>60) 05/23/17 05:30 Est GFR (Non-Af Amer) 42.8 (>60) 05/23/17 05:30 BUN/Creatinine Ratio 48.0 (8-20) H 05/23/17 05:30 Glucose 226 mg/dL (70-100) H 05/23/17 05:30 POC Glucose (mg/dL) 246 mg/dL (70-100) H 05/24/17 08:15 Lactic Acid 0.7 mmol/L (0.5-2.0) 05/17/17 07:51 Calcium 7.8 mg/dL (8.6-10.3) L 05/23/17 05:30 Ionized Calcium 4.53 mg/dL (4.65-5.28) L 05/20/17 05:00 Phosphorus 3.3 mg/dL (2.5-5.0) 05/22/17 05:30 Magnesium 2.0 mg/dL (1.9-2.7) 05/23/17 05:30 Total Bilirubin 1.10 mg/dL (0.2-1.0) H 05/23/17 05:30 AST 10 U/L (13-39) L 05/23/17 05:30 ALT 35 U/L (7-52) 05/23/17 05:30 Alkaline Phosphatase 68 U/L (34-104) 05/23/17 05:30 Total Creatine Kinase 16 U/L (10-223) 05/14/17 17:58 CK-MB (CK-2) 0.7 ng/mL (0.6-6.3) 05/14/17 17:58 Myoglobin 191.9 ng/mL (14.3-65.8) H 05/14/17 17:58 Troponin I 0.01 ng/mL (<0.04) 05/14/17 17:58 C-Reactive Protein 177.40 mg/L (< 5.00) H 05/15/17 05:45 B-Natriuretic Peptide 157 pg/mL (-100) H 05/14/17 17:58 Total Protein 4.4 g/dL (6.4-8.9) L 05/23/17 05:30 Albumin 1.9 g/dL (3.2-5.2) L 05/23/17 05:30 Globulin 2.5 g/dL (2-4) 05/23/17 05:30 Albumin/Globulin Ratio 0.8 (1-3) L 05/23/17 05:30 Triglycerides 296 mg/dL 05/21/17 11:54 Cholesterol 87 mg/dL 05/21/17 11:54 LDL Cholesterol 21 mg/dL 05/21/17 11:54 HDL Cholesterol 6.4 mg/dL 05/21/17 11:54 Urine Color [place] 05/15/17 00:32 Urine Appearance Cloudy 05/15/17 00:32 Urine pH 5.0 (5-9) 05/15/17 00:32 Ur Specific [place] 1.027 (1.010-1.030) 05/15/17 00:32 Urine Protein 2+(100 mg/dl) (Negative) H 05/15/17 00:32 Urine Ketones Trace (Negative) H 05/15/17 00:32 Urine Blood 1+ (Negative) H 05/15/17 00:32 Urine Nitrate Negative (Negative) 05/15/17 00:32 Urine Bilirubin Negative (Negative) 05/15/17 00:32 Urine Urobilinogen Negative (Negative) 05/15/17 00:32 Ur Leukocyte Esterase Negative (Negative) 05/15/17 00:32 Urine WBC (Auto) 3+(>20/hpf) (Absent) H 05/15/17 00:32 Urine RBC (Auto) 3+(>10/hpf) (Absent) H 05/15/17 00:32 Ur Squamous Epith Cells Present (Absent) H 05/15/17 00:32 Ur Transition Epith Cell Present (Absent) H 05/15/17 00:32 Urine Bacteria Absent (Absent) 05/15/17 00:32 Urine Glucose 1+(50 mg/dl) (Negative) H 05/15/17 00:32 Blood Type A Positive 05/19/17 05:19 Antibody Screen Negative 05/19/17 05:19 Crossmatch See Detail 05/19/17 05:19 - Objective Active Medications: Dextrose (D50w Syringe 50 Ml*) 12.5 gm IV PUSH .FOR FS < 60 - SS PRN PRN Reason: FS < 60 Diazepam (Valium Tab(*)) 2 mg PO TID PRN PRN Reason: ANXIETY Last Admin: 05/22/17 20:31 Dose: 2 mg Heparin Sodium (Porcine) (Heparin Flush Picc/Ml/Cvc(*)) 1 ml FLUSH 0600,1800 [place] PRN Reason: Protocol Last Admin: 05/24/17 05:39 Dose: Not Given Hydromorphone HCl (Dilaudid Inj*) 1 mg IV SLOW PU Q4H PRN PRN Reason: PAIN Last Admin: 05/24/17 04:23 Dose: 1 mg Fluconazole/Sodium Chloride (Diflucan 200 Mg Ivpremix(*)) 200 mg in 100 mls @ 100 mls/hr IVPB Q24H [facility] Last Admin: 05/23/17 10:03 Dose: 100 mls/hr Piperacillin Sod/Tazobactam (Sod 3.375 gm/ Sodium Chloride) 100 mls @ 25 mls/ hr IVPB 0200,1000,1800 [facility] Last Admin: 05/24/17 02:07 Dose: 25 mls/hr Dextrose 500 ml/ Amino Acids 500 ml/ Fat Emulsion Intravenous 125 ml/ Sodium Chloride 35 meq/ Potassium Chloride 50 meq/ Potassium Phosphate 15 mmole/ Calcium Gluconate 5 meq/ Magnesium Sulfate 5 meq/ Multivitamins 10 ml/ Trace Metals 1 ml/Nutrition (Parenteral) 1,186.7335 mls @ 49.447 mls/hr CENTR 1700 [facility] Last Admin: 05/23/17 16:49 Dose: 49.447 mls/hr Insulin Human Lispro (Humalog*) 0 units SUBCUT FS Q4 ICU [facility] PRN Reason: Protocol Last Admin: 05/24/17 08:50 Dose: 4 units Labetalol HCl (Trandate Iv*) 20 mg IV PUSH Q4H PRN PRN Reason: BLOOD PRESSURE Last Admin: 05/23/17 04:13 Dose: 20 mg Pantoprazole Sodium (Protonix Iv*) 40 mg IV Q24H [facility] Last Admin: 05/23/17 13:20 Dose: 40 mg Vital Signs: Vital Signs: Temp Pulse Resp BP Pulse Ox 99 F 94 18 132/70 96 05/24/17 08:00 05/24/17 08:01 05/24/17 08:01 05/24/17 08:00 05/24/17 08:01 Patient Weight: Weight 159 lb 13.362 oz Intake and Output: Intake & Output 05/22/17 05/23/17 05/24/17 05/25/17 06:59 06:59 06:59 06:59 Intake Total 3194 3385 2848 Output Total 9900 3625 3550 Balance 9585 -304 -169 Weight 161 lb 6.054 oz 163 lb 2.273 oz 159 lb 13.362 oz Intake: IV Fluids 1488 284 493 ABX - ZOSYN 100 D5W 958 KCL 272 KVO W/ABX 0 30 56 NS 158 254 437 IVPB 431 775 241 ABX - ZOSYN 140 265 KCL 50 KVO W/ABX 81 282 241 NS 210 178 TPN/PPN 1275 1446 1164 Oral 880 950 Output: Raines 950 2425 1050 Liquid Stool 500 1200 2500 Other: Date of Last Bowel 05/21/17 Movement # Bowel Movements 4 Estimated Stool Amount Medium ADLs: Meal Record Start: 05/15/17 00: 24 Freq: Status: Active Protocol: Created 05/15/17 00:24 System (Rec: 05/15/17 00:24 System ICU-C20) Document 05/15/17 09:00 [id number] (Rec: 05/15/17 12:47 [id number] ICU-M21) Document 05/15/17 13:00 DRQ4538 (Rec: 05/15/17 15:04 RMD2120 ICU-M21) Document 05/15/17 17:59 FBL0088 (Rec: 05/15/17 17:59 ZRE2795 ICU-C25) Document 05/16/17 09:00 YHH0323 (Rec: 05/16/17 09:08 HDQ2130 ICU-M21) Document 05/16/17 10:50 ULF7801 (Rec: 05/16/17 10:51 [id number] ICU-C12) Document 05/16/17 13:00 LTT2158 (Rec: 05/16/17 14:03 HUV3013 ICU-M21) Document 05/16/17 17:04 [id number] (Rec: 05/16/17 17:04 QPA1380 ICU-C12) Document 05/17/17 09:00 UPR0698 (Rec: 05/17/17 11:05 BCT6515 ICU-C25) Document 05/17/17 13:00 WQT4505 (Rec: 05/17/17 14:20 NJP2430 ICU-M21) Document 05/17/17 18:00 SUG7206 (Rec: 05/17/17 18:20 UGF0927 ICU-C25) Document 05/18/17 09:00 CRN1476 (Rec: 05/18/17 10:16 CAV5776 ICU-C20) Document 05/18/17 13:00 QQI0359 (Rec: 05/18/17 13:12 RRO0473 ICU-M21) Document 05/18/17 18:00 JYA9844 (Rec: 05/18/17 19:06 BIE6416 ICU-C10) Document 05/19/17 09:00 CPF6797 (Rec: 05/19/17 09:06 LXY4776 ICU-C15) Document 05/19/17 13:00 KYJ7436 (Rec: 05/19/17 13:12 KFE1631 ICU-M21) Document 05/19/17 18:00 YUF4882 (Rec: 05/19/17 18:10 RGE3771 ICU-C15) Document 05/20/17 09:00 GSH6743 (Rec: 05/20/17 10:10 ZPO9048 ICU-C25) Document 05/20/17 13:00 FOG1177 (Rec: 05/20/17 14:45 RNN1501 ICU-C25) Document 05/20/17 18:00 ZUT0369 (Rec: 05/20/17 19:05 GVJ5171 ICU-C25) Document 05/21/17 13:00 ZNI0342 (Rec: 05/21/17 13:16 JFB1668 ICU-C12) Document 05/21/17 18:00 KTZ1931 (Rec: 05/21/17 18:01 MSR4987 ICU-C12) Document 05/22/17 09:00 IIK5252 (Rec: 05/22/17 13:12 GTA2242 ICU-C15) Document 05/22/17 13:00 BOI9679 (Rec: 05/22/17 16:42 MLS2281 ICU-C15) Document 05/22/17 18:00 JOS5835 (Rec: 05/22/17 22:33 IDT9823 ICU-C15) Intake and Output Start: 05/15/17 00: 24 Freq: 06,14,22 Status: Active Protocol: Created 05/15/17 00:24 System (Rec: 05/15/17 00:24 System ICU-C20) Document 05/15/17 05:35 ALZ6244 (Rec: 05/15/17 05:35 ROB6436 ICU-C20) Document 05/15/17 14:00 SKZ2391 (Rec: 05/15/17 14:39 XLW8885 ICU-C20) Document 05/15/17 22:00 HYR2088 (Rec: 05/16/17 03:14 PYU1092 ICU-C15) Document 05/16/17 06:00 GES3844 (Rec: 05/16/17 07:44 NYZ4573 ICU-C15) Document 05/16/17 12:43 INF6147 (Rec: 05/16/17 12:43 FVP5881 ICU-C12) Document 05/16/17 14:00 OEE3030 (Rec: 05/16/17 14:04 TOA2385 ICU-M21) Document 05/16/17 22:00 JWE1803 (Rec: 05/16/17 22:04 FWH8446 ICU-M21) Document 05/17/17 05:17 HWU0065 (Rec: 05/17/17 05:18 WEJ3460 ICU-M21) Document 05/17/17 14:00 PBY8147 (Rec: 05/17/17 14:20 JGE2402 ICU-M21) Document 05/17/17 22:42 BWS0832 (Rec: 05/17/17 22:45 JFM9347 ICU-M21) Document 05/18/17 06:00 JYN6440 (Rec: 05/18/17 06:26 BBS0181 ICU-M16) Document 05/18/17 14:00 WMU0872 (Rec: 05/18/17 18:43 NEY7677 ICU-C10) Document 05/18/17 22:00 JJF5103 (Rec: 05/18/17 23:49 TTS5204 [facility] [place]-RDC2) Document 05/19/17 06:00 ZRC0327 (Rec: 05/19/17 06:23 GYG9090 ICU-M21) Document 05/19/17 13:13 CCH9786 (Rec: 05/19/17 13:13 QHA6473 ICU-M21) Document 05/19/17 19:41 LNP3053 (Rec: 05/19/17 19:41 JRC6536 ICU-C20) Document 05/19/17 22:32 SUD0037 (Rec: 05/19/17 22:32 CBQ1237 ICU-C25) Document 05/20/17 06:29 FNF7881 (Rec: 05/20/17 06:30 KAI0767 ICU-C25) Document 05/20/17 14:00 EPH1040 (Rec: 05/20/17 15:04 DDR4683 ICU-C20) Document 05/20/17 15:00 LDJ8548 (Rec: 05/20/17 15:52 BZS7225 ICU-M21) Document 05/21/17 06:30 QQR6881 (Rec: 05/21/17 06:30 ETU3260 ICU-C15) Document 05/21/17 09:03 QWX7998 (Rec: 05/21/17 09:03 PJF5318 ICU-C14) Document 05/21/17 09:03 CYJ2741 (Rec: 05/21/17 09:03 IYJ3524 ICU-C14) Document 05/21/17 09:45 ZHH8791 (Rec: 05/21/17 09:45 UAC0856 ICU-C14) Document 05/21/17 10:06 DXC6813 (Rec: 05/21/17 10:06 UFA1840 ICU-C14) Document 05/21/17 13:52 WFE1286 (Rec: 05/21/17 13:52 HXI1501 ICU-M21) Document 05/21/17 15:39 VJX6260 (Rec: 05/21/17 15:40 CBG7443 ICU-C14) Document 05/21/17 22:00 NFP1291 (Rec: 05/21/17 22:43 CRV6116 ICU-M21) Document 05/22/17 06:00 FSN0070 (Rec: 05/22/17 06:21 GBV9284 ICU-C15) Document 05/22/17 14:00 KOI5488 (Rec: 05/22/17 18:14 AYB9176 ICU-C15) Document 05/22/17 16:00 PAY2564 (Rec: 05/22/17 18:14 BNN5085 ICU-C15) Document 05/22/17 22:00 XWJ5693 (Rec: 05/22/17 22:07 DAZ4496 ICU-C20) Document 05/23/17 06:25 DCC6624 (Rec: 05/23/17 06:25 NIG2808 ICU-M21) Document 05/23/17 07:43 ZFW2583 (Rec: 05/23/17 07:43 PRS3108 ICU-C15) Document 05/23/17 12:06 QES4219 (Rec: 05/23/17 12:06 XEO4807 ICU-C12) Document 05/23/17 14:00 HNF3517 (Rec: 05/23/17 14:47 JSI8043 ICU-C15) Document 05/23/17 15:07 CGX9680 (Rec: 05/23/17 15:07 SPL7200 ICU-C12) Document 05/23/17 22:00 RUA2364 (Rec: 05/23/17 22:38 ADQ3471 ICU-C14) Document 05/23/17 22:10 VAX1231 (Rec: 05/23/17 22:10 EYC3429 ICU-C15) Document 05/24/17 02:26 VBW5752 (Rec: 05/24/17 02:26 ALC9501 ICU-C15) Document 05/24/17 06:00 WET6479 (Rec: 05/24/17 06:14 PBY8192 ICU-M21) - Assessment Assessment: This patient is not in a "hospice mindset" at present, although she would be appropriate for hospice if she is no longer a candidate for chemotherapy, and would want to discontinue measures such as TPN. But she does not want heroic measures if she experiences cardiac arrest or respiratory failure, so I filled out a MOLST form with her just specifying DNR/DNI. Thanks for the consult. - Plan Consult Plan (MU): Palliative - Time On Unit Date of Evaluation: 05/24/17 Hospice Consult Time in: 09:15 Hospice Consult Time Out: 09:55 Hospice Consult Time Total: 40 > 50% of Time Spend In Counseling or Coordinating Care: Yes
--- NOTE | 2017-05-24 10:46 | PN ---
Progress Note - Progress Note Date of Service: 05/24/17 SOAP: Subjective: Pt seen and examined. . Pt remains on TPN. Loose Bms into rectal tube. Positive flatus. Some abdo pain 2/10 overnight. Case d/w palliative care Objective: af HR 100s Uo good lungs decre BS b/l abdo: soft, minimally tender, edematous. packing changed at midline incision, exposed adipose tissue with some granulation tissue. hypoactive BS, L groin ecchymosis unchanged labs noted Assessment: POD9 ex lap, abdo washout, closure of sb perf, HD stable. weak; resolving ileus. Plan: d/c abx CT scan if spikes fever. advance diet lasix continue TPN PT continue ICU care for 24 hrs Hospitalist to follow regarding electrolytes, abx, tpn
[2017-05-24] MEDS ORDERED: Furosemide IV* 10 MG/ML 2 ML VIAL (20 MG) IV ONE (10:49)
[2017-05-24] MEDS: Pantoprazole IV* 40 MG IV SCH (12:11)
[2017-05-24] MEDS: [UNRECOGNIZED DRUG - OTHER] CENTR SCH ×5 (16:06)
[2017-05-24] MEDS: TPN CENTR SCH ×5 (16:06)
[2017-05-24] MEDS: AMINO ACID CENTR SCH ×5 (16:06)
[2017-05-24] MEDS: LIPID EMULSION CENTR SCH ×5 (16:06)
[2017-05-25] MEDS: Insulin LISPRO* 1 UNITS UNIT SUBCUT SCH ×6 (04:18→23:58)
[2017-05-25] MEDS: HYDROmorphone INJ* 2 MG/ML CARPUJECT SYRINGE IV SLOW PU PRN ×5 (04:29→23:51)
[2017-05-25] MEDS: Labetalol IV* 5 MG/ML 20 ML VIAL IV PUSH PRN (11:14)
--- NOTE | 2017-05-25 12:02 | PN ---
Progress Note - Progress Note Date of Service: 05/25/17 SOAP: Subjective: Patient seen and examined at her bedside. Reports feeling much better. Tolerating full liquids, appetite still poor. Denies pain, nausea or vomiting. Objective: Awake and alert, sitting on her chair VSS, afebrile Abdomen soft, NT, ND. Incision unchanged from last visit. Packing to be changed later by nursing staff. I/O's reviewed Assessment: s/p exploratory laparotomy with washout and repair of sb perf, improving clinically Plan: May transfer to surgical floor today Continue TPN
[2017-05-25] MEDS: Pantoprazole IV* 40 MG IV SCH (12:21)
--- NOTE | 2017-05-25 14:37 | PN ---
Progress Note - Progress Note Date of Service: 05/25/17 SOAP: Subjective: []Transfer to floor. Very weak, able to sit in chair but not standing, an move arms and feet. She is eating but swallowing can be difficult. Pain is controlled. No fevers. Working with PT. Dextrose (D50w Syringe 50 Ml*) 12.5 gm IV PUSH .FOR FS < 60 - SS PRN PRN Reason: FS < 60 Diazepam (Valium Tab(*)) 2 mg PO TID PRN PRN Reason: ANXIETY Last Admin: 05/22/17 20:31 Dose: 2 mg Heparin Sodium (Porcine) (Heparin Flush Picc/Ml/Cvc(*)) 1 ml FLUSH 0600,1800 [place] PRN Reason: Protocol Last Admin: 05/25/17 12:21 Dose: 1 ml Hydromorphone HCl (Dilaudid Inj*) 1 mg IV SLOW PU Q4H PRN PRN Reason: PAIN Last Admin: 05/25/17 08:36 Dose: 1 mg Fat Emulsion Intravenous 125 ml/ Multivitamins 10 ml/ Trace Metals 1 ml/ Dextrose 300 ml/Amino Acid 4.25/D10 TPN HILDA* 1,436 mls @ 59.833 mls/hr CENTR 1700 [place] PRN Reason: Protocol Last Admin: 05/24/17 16:06 Dose: 59.833 mls/hr Insulin Human Lispro (Humalog*) 0 units SUBCUT FS Q4 ICU [place] PRN Reason: Protocol Last Admin: 05/25/17 12:17 Dose: 4 units Labetalol HCl (Trandate Iv*) 20 mg IV PUSH Q4H PRN PRN Reason: BLOOD PRESSURE Last Admin: 05/25/17 11:14 Dose: 20 mg Pantoprazole Sodium (Protonix Iv*) 40 mg IV Q24H [place] Last Admin: 05/25/17 12:21 Dose: 40 mg Objective: [] Vital Signs Temp Pulse Resp BP Pulse Ox 98.4 F 95 22 162/69 96 05/25/17 14:07 05/25/17 14:00 05/25/17 14:00 05/25/17 14:00 05/25/17 14:00 HEENT - mucosa dry, no thrush. IJ line. Decreased BS, no wheezes RRR S1S2 did not remove bandage from abd. + BS Ext +1 RENETTA, warm Neuro: AAOx3, strength 2/5 throughout Assessment: []72 year old with endometrial cancer and small bowl perforation. Now transferred to floor. Plan: []1. Bowl perforation. She has open abdominal wound, will need to follow healing as nutrition improves. Expect prolonged recovery. Will discuss with surgery. 2. Protein-Calorie malnutrition. Second to sepsis. Will continue TPN and encouraged oral intake. Check Pre-Albumin tomorrow. 3. Anemia. Will re-check Iron and B12. Consider Tx to Hgb > 8.0 4. Post ICU myopathy. Encouraged PT, will be prolonged recovery. 5. FEN. Stable, follow on TPN 6. HTN. Controlled on Labetalol, continue until taking po consistently. 7. Endometrial Cancer. Discussed that unlikley to have any additional chemotherapy. Survival measures in months, median of 6 months. Goal is recover from this event and then focus on QOL. Patient and understand. Agree with DRN/DNI.
[2017-05-25] MEDS: AMINO ACID CENTR SCH ×5 (16:18)
[2017-05-25] MEDS: LIPID EMULSION CENTR SCH ×5 (16:18)
[2017-05-25] MEDS: TPN CENTR SCH ×5 (16:18)
[2017-05-25] MEDS: [UNRECOGNIZED DRUG - OTHER] CENTR SCH ×5 (16:18)
[2017-05-26] MEDS: Insulin LISPRO* 1 UNITS UNIT SUBCUT SCH ×2 (04:36→09:22)
[2017-05-26 04:42] LABS: ABS Basophils 0 10^3/ul (0-0.2); ABS Eosinophils 0 10^3/ul (0-0.6); ABS Lymphocytes 0.4 10^3/ul (1.0-4.8); ABS Monocytes 0.1 10^3/ul (0-0.8); ABS Neutrophils 3.2 10^3/ul (1.5-7.7); ABS Nucleated RBC 0 10^3/ul; Eosinophil % 0 % (0-6); Hematocrit 21 % (35-47); Lymphocyte % 11.1 % (25-47); Mean Corpuscular HGB Conc 34 g/dl (31-36); Mean Corpuscular Hemoglobin 29 pg (27-31); Mean Corpuscular Volume 85 fL (80-97); Mean Platelet Volume 9 um3 (7.4-10.4); Nucleated Red Blood Cells % 0.3; Platelet Count 178 10^3/ul (150-450); Red Blood Count 2.45 10^6/ul (4.0-5.4); Red Cell Distribution Width 21 % (10.5-15); White Blood Count 3.8 10^3/ul (3.5-10.8)
[2017-05-26] MEDS: HYDROmorphone INJ* 2 MG/ML CARPUJECT SYRINGE IV SLOW PU PRN (09:23)
[2017-05-26] MEDS: Pantoprazole IV* 40 MG IV SCH (13:20)
[2017-05-26] MEDS: Metoprolol Tartrate IV* 1 MG/ML 5 ML VIAL IV PRN (13:24)
--- NOTE | 2017-05-26 15:30 | PN ---
Progress Note - Progress Note Date of Service: 05/26/17 Note: Surgery Progress S: POD #12. Reyna some full liquids. Is hesitant to try more for diet or po meds 2 /2 weakness w/ swallowing, some of which was present prior to surgery. She is still using Dilaudid frequently. O: Vital Signs - 8 hr 05/26/17 05/26/17 05/26/17 08:10 09:23 09:51 Temperature Pulse Rate 100 Respiratory 22 22 Rate Blood Pressure 170/48 (mmHg) O2 Sat by Pulse Oximetry 05/26/17 05/26/17 10:25 12:07 Temperature 98.5 F Pulse Rate 108 Respiratory 18 24 Rate Blood Pressure 176/56 (mmHg) O2 Sat by Pulse 100 Oximetry Intake and Output Last 24 Hours 05/24/17 05/25/17 05/26/17 05/27/17 06:59 06:59 06:59 06:59 Intake Total 2848 2500 1966 440 Output Total 3550 2775 1700 450 Balance -702 -275 266 -10 Weight 159 lb 13.362 oz 158 lb 8.198 oz Intake: IV Fluids 493 478 140 Flucanozole 100 KVO W/ABX 56 NS 437 378 140 IVPB 241 92 KVO W/ABX 241 NS 92 TPN/PPN 1164 1290 1186 Oral 950 640 640 440 Output: Urine 350 275 Raines 1050 825 575 450 Liquid Stool 2500 1600 850 Heart: reg Lungs: clear Abd: midline incision open w/ pkg and retention sutures in place; no sig tenderness. Nsg to change pkg. Resolving ecchymosis in lower abd/ L groin. Extr: no sig edema Labs: Laboratory Tests 05/26/17 05/26/17 04:25 04:25 WBC 3.8 Hgb 7.0 L Sodium 145 Potassium 2.9 L Chloride 120 H BUN 58 H Creatinine 1.43 H Glucose 161 H Phosphorus 5.3 H Magnesium 1.6 L Albumin 1.9 L Prealbumin 8 L A: s/p ex lap, repair SB perf; met ovarian ca; slow improvement, but severe protein-calorie malnutrition, continues on TPN P: discussed TPN changes w/ pharmacy; will add 15 U insulin to each bag and d/c fingersticks and coverage (fs's < 235); will defer mgmnt of iron def and anemia to Dr. Lewis. I'm not certain if she is still being followed by the hospitalist service
[2017-05-26] MEDS ORDERED: KCL 20 MEQ/100 ML IVPREMIX* 20 MEQ/100 ML BAG IV SCH (16:00)
[2017-05-26] MEDS ORDERED: Potassium Chloride IV* 40 MEQ in NS 0.9% 250 ML* 250 ML IVPB ONE (16:00)
--- NOTE | 2017-05-26 16:20 | PN ---
Progress Note - Progress Note Date of Service: 05/26/17 SOAP: Subjective: [Patient seen and examined at bedside. Feels more weak today and states "has low energy". She reports tolerating being up in the chair for only 1 hour today. Needed maninder lift back to bed. Did not work with PT today due to weakness. Continues to report poor appetite. States she ate ice cream and 1/2 popsicle today. Eating ice chips during interview. She reports mild abdominal discomfort however states it is manageable. Denies N/V. States she feels mildly SOB and has chest discomfort however attributes it to just being lifted back to bed and being changed by nursing staff. She reports sleeping well through the night. Objective: Vital Signs Temp 97.9 F 05/26/17 15:48 Pulse 113 05/26/17 15:48 Resp 26 05/26/17 15:48 BP 184/64 05/26/17 15:48 Pulse Ox 98 05/26/17 15:48 Intake & Output 05/25/17 05/26/17 05/26/17 18:59 06:59 18:59 Intake Total 893 1073 440 Output Total 1100 600 450 Balance -207 473 -10 Weight 163 lb 5 oz Intake: IV Fluids 140 NS 140 TPN/PPN 513 673 Oral 240 400 440 Output: Urine 275 Raines 250 325 450 Liquid Stool 850 General: Patient laying supine in hospital bed. Alert and orientated x 3. NAD. HEENT: Scerla anicteric. EOMI. Mucous membranes dry. Neck: soft and supple. Right IJ in place. Cardiovascular: Tachycardic. No murmurs, rubs or gallops. Respiratory: Moving air well. Mild expiratory wheezes heard in the upper lobes in the anterior position. Uses yanker suction to help with oral secretions on her own. Abdomen: Soft non-distended. Mild tenderness to palpation. No hernias or masses appreciated. + BS heard throughout. Midline incision with dressing appreciated. Incision and retaining sutures not visualized. Packing changed earlier today per pt. No drainage or blood appreciated on bandage. Extremities: No pain upon palpation of lower extremities. Mild edema appreciated around ankles. Muscle strength 3/5 in the upper and lower extremities. Neuro: Alert and orientated. Speech is clear but soft. Gait not assessed. Skin: Echymotic area near L inguinal region secondary to previous central line placement. ] Assessment: [Mrs. Roy is a 72 female with significant PMH of endometrial uterine cancer who is s/p exploratory laparotomy with repair of small bowel perforation. POD # 12 Slowing improving. Blood pressure elevated today with systolic between 170- 180's, however, pt states "this is normal for her". After sitting patient up in bed, patient reports chest discomfort and SOB resolved. ] Plan: [Continue with PT/OT to regain strength and pain medication as needed. Advance diet as tolerated. Continue with TPN. Will continue with wound dressing changes QD. Continue with Lopressor IV for BP control.
[2017-05-26] MEDS ORDERED: LORazepam INJ* 2 MG/ML 1 ML VIAL IV PUSH PRN (16:51)
--- NOTE | 2017-05-26 16:58 | PN ---
Progress Note - Progress Note Date of Service: 05/26/17 SOAP: Subjective: []Wants to transition to hospice. Discussed with (who is in the room during examination) and is ready. Feels so weak and doesn't want to be in the hospital. Aware of her prognosis. Biggest complaint is dry mouth and feeling thirsty. Swallowing is hard and painful, this is frustrating. Mild pain, but mostly pain meds have helped her sleep. Medications: Dextrose (D50w Syringe 50 Ml*) 12.5 gm IV PUSH .FOR FS < 60 - SS PRN PRN Reason: FS < 60 Diazepam (Valium Tab(*)) 2 mg PO TID PRN PRN Reason: ANXIETY Last Admin: 05/22/17 20:31 Dose: 2 mg Heparin Sodium (Porcine) (Heparin Flush Picc/Ml/Cvc(*)) 1 ml FLUSH 0600,1800 ISRAEL PRN Reason: Protocol Last Admin: 05/26/17 13:32 Dose: 1 ml Hydromorphone HCl (Dilaudid Inj*) 1 mg IV SLOW PU Q4H PRN PRN Reason: PAIN Last Admin: 05/26/17 09:23 Dose: 1 mg Fat Emulsion Intravenous 125 ml/ Multivitamins 10 ml/ Trace Metals 1 ml/ Dextrose 300 ml/Amino Acid 4.25/D10 TPN HILDA* 1,436 mls @ 59.833 mls/hr CENTR 1700 ISRAEL PRN Reason: Protocol Stop: 05/26/17 16:59 Last Admin: 05/25/17 16:18 Dose: 59.833 mls/hr Dextrose 500 ml/ Amino Acids 1 ,000 ml/ Fat Emulsion Intravenous 125 ml/ Sodium Acetate 35 meq/ Potassium Chloride 50 meq/ Calcium Gluconate 15 meq/ Magnesium Sulfate 15 meq/ Multivitamins 10 ml/ Trace Metals 1 ml/Insulin Human Regular 15 units / Nutrition (Parenteral) 1,714.6025 mls @ 71.442 mls/hr CENTR 1700 ISRA[place] PRN Reason: Protocol Potassium Chloride 40 meq/ (Sodium Chloride) 270 mls @ 67.5 mls/hr IVPB ONCE ONE Stop: 05/26/17 19:59 Lorazepam (Ativan Inj*) 0.5 mg IV PUSH Q4H PRN PRN Reason: Anxiety/insomnia Metoprolol Tartrate (Lopressor Iv*) 5 mg IV Q6H PRN PRN Reason: Systolic Bp Greater Than: 170 Last Admin: 05/26/17 13:24 Dose: 5 mg Morphine Sulfate (Morphine Oral Concentrate*) 5 mg SL Q2H PRN PRN Reason: Pain/dyspnea Pantoprazole Sodium (Protonix Iv*) 40 mg IV Q24H ISRA[place] Last Admin: 05/26/17 13:20 Dose: 40 mg Objective: [] Vital Signs Temp Pulse Resp BP Pulse Ox 97.9 F 113 26 184/64 98 05/26/17 15:48 05/26/17 15:48 05/26/17 15:48 05/26/17 15:48 05/26/17 15:48 Resting comfortably in bed and CRISOSTOMO slowly. 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 A&Ox3, involved in conversation with good reasoing capability HRR, ST on tele Resp. even and slightly labored Clearing throat frequently Dry mucosa Laboratory Results - last 24 hr 05/25/17 05/25/17 05/25/17 17:45 19:37 23:43 WBC RBC Hgb Hct MCV MCH MCHC RDW Plt Count MPV Neut % (Auto) Lymph % (Auto) [place] % (Auto) Eos % (Auto) Baso % (Auto) Absolute Neuts (auto) Absolute Lymphs (auto) Absolute Monos (auto) Absolute Eos (auto) Absolute Basos (auto) Absolute Nucleated RBC Nucleated RBC % Sodium Potassium Chloride Carbon Dioxide Anion Gap BUN Creatinine Est GFR ( Amer) Est GFR (Non-Af Amer) BUN/Creatinine Ratio Glucose POC Glucose (mg/dL) 221 H 119 H Calcium Phosphorus Magnesium Iron < 15 L TIBC 175 L % Saturation 9 L Unsat Iron Binding 160.21619 Ferritin Total Bilirubin AST ALT Alkaline Phosphatase Total Protein Albumin Globulin Albumin/Globulin Ratio Prealbumin Vitamin B12 05/26/17 05/26/17 05/26/17 04:25 04:25 08:14 WBC 3.8 RBC 2.45 L Hgb 7.0 L Hct 21 L MCV 85 MCH 29 MCHC 34 RDW 21 H Plt Count 178 MPV 9 Neut % (Auto) 85.0 H Lymph % (Auto) 11.1 L [place] % (Auto) 2.7 Eos % (Auto) 0 Baso % (Auto) 1.2 Absolute Neuts (auto) 3.2 Absolute Lymphs (auto) 0.4 L Absolute Monos (auto) 0.1 Absolute Eos (auto) 0 Absolute Basos (auto) 0 Absolute Nucleated RBC 0 Nucleated RBC % 0.3 Sodium 145 Potassium 2.9 L Chloride 120 H Carbon Dioxide 18 L Anion Gap 7 BUN 58 H Creatinine 1.43 H Est GFR ( Amer) 46.3 Est GFR (Non-Af Amer) 36.0 BUN/Creatinine Ratio 40.6 H Glucose 161 H POC Glucose (mg/dL) 206 H Calcium 7.7 L Phosphorus 5.3 H Magnesium 1.6 L Iron TIBC % Saturation Unsat Iron Binding Ferritin 1172.4 H Total Bilirubin 0.80 AST 13 ALT 20 Alkaline Phosphatase 70 Total Protein 4.8 L Albumin 1.9 L Globulin 2.9 Albumin/Globulin Ratio 0.7 L Prealbumin 8 L Vitamin B12 > 1450 H Assessment: []72 yo female who presented to the hospital 12 days with perforated bowel and now very slow recovery. We had a long and honest conversation regarding her current condition and her wishes. She is aware that if she stops all therapy she may only have days. Goal would be to get out of hospital to residence or home (if feels up to this). She is clear that she is ready and her is very supportive. We discussed continuing therapy through the night however in goals of giving her a little more strength and comfort as her lab values are so low. Plan: []1. TPN as per ALFRED Serrano, agree with KCl riders, OK to stop FS 2. Stop daily labs and will stop additional TPN after this bag (going up @ 1700) 3. 1 unit PRBCs tonight 4. Add morphine concentrate SL PRN for pain, SOB, or insomnia. Can also try lorazepam IV 5. Hospice consult LISA: goal of out of hospital 6. Tachycardia and hypertension OK for now, cont. PRN q6hr metoprolol but VS PRN is OK 7. Discussed comfort goals with nursing DNR
[2017-05-26] MEDS ORDERED: TPN CENTRAL STANDARD BASE A CENTR SCH ×11 (17:00)
[2017-05-26] MEDS: Morphine ORAL CONCENTRATE* 5 MG/0.25 ML ORAL.SYRIN SL PRN ×2 (17:23→20:52)
[2017-05-26] MEDS: CMCS: Saliva Substitute (NF) 1 SPRAY BTL MT SCH ×5 (17:56→23:59)
[2017-05-27] MEDS: Morphine ORAL CONCENTRATE* 5 MG/0.25 ML ORAL.SYRIN SL PRN ×3 (00:05→11:28)
[2017-05-27] MEDS: CMCS: Saliva Substitute (NF) 1 SPRAY BTL MT SCH ×14 (00:18→13:47)
[2017-05-27] MEDS: HYDROmorphone INJ* 2 MG/ML CARPUJECT SYRINGE IV SLOW PU PRN (03:54)
--- NOTE | 2017-05-27 10:29 | PN ---
Progress Note - Progress Note Date of Service: 05/27/17 Note: Please refer to my original assessment when this patient was in the ICU. At that time, she elected DNR/DNI status but was not prepared to accept hospice services. At this time, the patient has decided to discontinue aggressive efforts, realizing her prognosis is very guarded, and she wants to go home. I spoke with her and her . The patient opts for home rather than SNF, and I think this is reasonable if additional COMPUTER SERVICE TECHNICIAN assistance at home can be secured. If it is too overwhelming for her , [facility]. They will need a hospital bed in the home, delivered prior to her discharge if possible. I will see if we have available admissions nurse for her. She is appropriate for hospice services with a primary diagnosis of metastatic endometrial cancer and a secondary diagnosis of bowel perforation with peritonitis. Her prognosis is measured in weeks at best. She is currently comfortable with her pain medications, which should be continued at home.
[2017-05-27 11:22] VITALS: BP 185/70
[2017-05-27] MEDS: Metoprolol Tartrate IV* 1 MG/ML 5 ML VIAL IV PRN (11:27)
[2017-05-27] MEDS: Pantoprazole IV* 40 MG IV SCH (12:55)
--- NOTE | 2017-05-28 13:23 | DS ---
CC: Dr. Korey Lewis; Dr. Anny Melendrez; Dr. Regan Sandoval; Dr. Keisha Carlson; [facility]; [facility] * DISCHARGE SUMMARY: DATE OF ADMISSION: 05/14/17 DATE OF DISCHARGE: 05/27/17 ATTENDING SURGEON: Dr. Mike Bah * (DICTATED BY ALFRED MACHADO) HOSPITAL COURSE: Please refer to admission history and physical and operative note for admission and operative details. Briefly, the patient is a 72-year- old female with stage 4 endometrial cancer, recently receiving palliative chemotherapy, who presented with hypertension and sepsis picture with a CT scan of the abdomen and pelvis showing free air indicating perforation. She was seen by Cardiology, who did not feel that the presentation was cardiogenic. She was taken to the OR by Dr. Bah on 05/14/17 at which time he performed an exploratory laparotomy with washout and repair of small bowel perforation. The abdomen was closed, but skin and subcutaneum left open with packing. Retention sutures were placed. She was left intubated initially, but was able to be extubated on 05/17/17. She was continued on empiric Zosyn and Diflucan. She also had a PICC line placed for TPN for severe protein-calorie malnutrition. She was seen by Palliative Care (Dr. Carlson) initially on 05/24/17 and then again today the day of discharge. Initially, she was agreeable to a DNR/DNI status, but as of today and after discussion with Dr. Lewis, she is agreeable to hospice and discontinuation of aggressive therapies. Plan was for transfer to the hospice residence. She was seen in consultation by Cardiology, Oncology, and the [facility] Critical Care Medicine service. The patient's abdominal wound packing will be discontinued prior to transfer. She will need to continue a dry sterile dressing for potential drainage from the wound to be changed on a once daily basis. Wound may be left open and Webb straps removed if there is no active drainage at some point in the future. MEDICATIONS ON DISCHARGE: To be determined by Dr. Carlson in the hospice facility. ALFRED MACHADO [id number]/[facility] #: [id number] [facility]
== END 2017-05-27 14:40 | disposition hospice, inpatient (51) | DRG 853 ==
LOC: ED 16:55 → CHICATH 18:46 → ED 21:18 → ICU 23:28 → SSU 05-25 14:20
PROVIDERS: ADMIT Surgery; ATTEND Surgery
PROC: 0JB80ZZ Excision of Abdomen Subcutaneous Tissue and Fascia, Open Approach (ICD-10-PCS; 2017-05-14)
PROC: 0DQ80ZZ Repair Small Intestine, Open Approach (ICD-10-PCS; 2017-05-14)
PROC: 0BH17EZ Insertion of Endotracheal Airway into Trachea, Via Natural or Artificial Opening (ICD-10-PCS; 2017-05-14)
PROC: 5A1945Z Respiratory Ventilation, 24-96 Consecutive Hours (ICD-10-PCS; principal; 2017-05-14 21:19)
PROC: 05HM33Z Insertion of Infusion Device into Right Internal Jugular Vein, Percutaneous Approach (ICD-10-PCS; 2017-05-15)
PROC: B543ZZA Ultrasonography of Right Jugular Veins, Guidance (ICD-10-PCS; 2017-05-15)
PROC: 30233R1 Transfusion of Nonautologous Platelets into Peripheral Vein, Percutaneous Approach (ICD-10-PCS; 2017-05-16)
PROC: 30233N1 Transfusion of Nonautologous Red Blood Cells into Peripheral Vein, Percutaneous Approach (ICD-10-PCS; 2017-05-16)
PROC: 0BP1XDZ Removal of Intraluminal Device from Trachea, External Approach (ICD-10-PCS; 2017-05-17)
DX: A41.50 Gram-negative sepsis, unspecified (principal); K63.1 Perforation of intestine (nontraumatic); J96.00 Acute respiratory failure, unspecified whether with hypoxia or hypercapnia; K72.00 Acute and subacute hepatic failure without coma; E43 Unspecified severe protein-calorie malnutrition; J91.0 Malignant pleural effusion; D61.810 Antineoplastic chemotherapy induced pancytopenia; R65.21 Severe sepsis with septic shock; K56.2 Volvulus; K83.1 Obstruction of bile duct; K65.9 Peritonitis, unspecified; N17.9 Acute kidney failure, unspecified; K56.7 Ileus, unspecified; D69.6 Thrombocytopenia, unspecified; C54.1 Malignant neoplasm of endometrium; D63.8 Anemia in other chronic diseases classified elsewhere; E78.00 Pure hypercholesterolemia, unspecified; I10 Essential (primary) hypertension; I25.10 Atherosclerotic heart disease of native coronary artery without angina pectoris; Z85.828 Personal history of other malignant neoplasm of skin; F41.9 Anxiety disorder, unspecified; Z66 Do not resuscitate; E83.51 Hypocalcemia; T45.1X5A Adverse effect of antineoplastic and immunosuppressive drugs, initial encounter; Y92.009 Unspecified place in unspecified non-institutional (private) residence as the place of occurrence of the external cause; B96.1 Klebsiella pneumoniae [K. pneumoniae] as the cause of diseases classified elsewhere; E83.42 Hypomagnesemia; R73.9 Hyperglycemia, unspecified; G72.89 Other specified myopathies; Z88.8 Allergy status to other drugs, medicaments and biological substances; Z85.820 Personal history of malignant melanoma of skin; Z82.49 Family history of ischemic heart disease and other diseases of the circulatory system; Z72.89 Other problems related to lifestyle; Z68.28 Body mass index [BMI] 28.0-28.9, adult
CPT/HCPCS: 36415; 36600; 36620; 71045; 74176; 80048; 80053; 80061; 81003; 81015; 82330; 82550; 82553; 82607; 82728; 82803; 83540; 83550; 83605; 83735; 83874; 83880; 84100; 84134; 84478; 84484; 85025; 85027; 85060; 85379; 85384; 85610; 85730; 86140; 86850; 86900; 86901; 86922; 87040; 87077; 87186; 87205; 87641; 93005; 94002; 94003; 94760; 99232; 99233; 99285; A9270-GY; J0610; J1170; J1450; J1642; J1644; J1940; J2060; J2250; J2405; J2543; J2704; J3010; J3360; J3370; J3475; J3480; J3490; P9016; P9035; P9040; P9045; P9047; Q5101 ZA